=== PATIENT | female | born 1975 | race Caucasian/White ===

== ENCOUNTER → 2017-10-19 | Outpatient (CLI) | payer MEDICAID ==
[~2017-10-19] MED LIST: ACET325T49 PO; CIPR500T78 PO; CLON0.5T3 PO; CLOT15CR6 TOP; DEPOPROVERA; HYDR-623 PO; KLONOPIN; LACO150T2 PO; LAMO200T14 PO; LORA1TAB PO; MPR22T TP; MTR500T PO; MULT-30 PO; OMEP-10 PO; PRILOSEC; TRM50T PO; [UNRECOGNIZED DRUG - OTHER]
--- NOTE | 2017-10-20 10:02 | Diagnostic Imaging Report ---
EXAMINATION: Bilateral screening mammogram 2D views with tomosynthesis. The current study was also evaluated with a Computer Aided Detection (CAD) system. INDICATION: Screening. PERSONAL HISTORY: No current complaints stated on the questionnaire. COMPARISON: 09/17/2016. FINDINGS: The breasts are composed of heterogeneously dense parenchyma which may decrease mammographic sensitivity. Allowing for technique and positional differences, no suspicious change is seen. IMPRESSION: No significant change. ACR BI-RADS Category 2: Benign findings. Result letter will be mailed to the patient. Note: At least 10% of breast cancer is not imaged by mammography. Dictated by: Dictated on workstation # [id number]
== END ==
LOC: RAD 09:09
PROVIDERS: ATTEND Family Medicine
DX: Z12.31 Encounter for screening mammogram for malignant neoplasm of breast (principal)
CPT/HCPCS: 77067

== ENCOUNTER → 2018-04-08 | Outpatient (CLI) | payer MEDICAID ==
--- NOTE | 2018-04-08 17:48 | Diagnostic Imaging Report ---
INDICATION: Right femur pain. AP and lateral views of the right femur are obtained. Intramedullary karen is in place in the femoral shaft. Old fracture deformity of the distal femoral shaft is noted. No acute fracture is seen. There is no lytic or blastic lesion. IMPRESSION: Anatomic alignment of right femur with old fracture deformity in distal femoral shaft. Intramedullary karen is in place. There is no acute-appearing abnormality. Dictated by: Dictated on workstation # [id number]
== END ==
LOC: RAD 12:55
PROVIDERS: ATTEND Family Medicine
DX: M79.651 Pain in right thigh (principal); Z96.7 Presence of other bone and tendon implants
CPT/HCPCS: 73552

== ENCOUNTER → 2018-12-14 | Outpatient (CLI) | payer MEDICAID ==
--- NOTE | 2018-12-14 21:18 | Diagnostic Imaging Report ---
INDICATION: Routine screening. Comparison is made with prior mammogram from 10/19/2017 and 09/17/2016. 2-D and 3-D bilateral screening mammography was performed with CAD. The current study was also evaluated with a Computer Aided Detection (CAD) system. FINDINGS: Both breasts are heterogeneously dense, limiting the sensitivity of mammography. Positioning is compromised. There is a new density in the medial aspect of the right breast on the CC view at mid depth. This appears to be inferiorly located on the MLO view. Additional views are recommended. Asymmetric density in the superior right breast appears stable. Left breast is unremarkable. The axillae are unremarkable. IMPRESSION: Right breast density, as described. Additional views are recommended for further evaluation. ACR BI-RADS Category 0: Incomplete. (Needs additional imaging evaluation). Result letter will be mailed to the patient. Note: At least 10% of breast cancer is not imaged by mammography. Dictated by: Dictated on workstation # [id number]
== END ==
LOC: RAD 11:09
PROVIDERS: ATTEND Family Medicine
DX: Z12.31 Encounter for screening mammogram for malignant neoplasm of breast (principal)
CPT/HCPCS: 77067

== ENCOUNTER → 2018-12-30 | Outpatient (CLI) | payer MEDICAID ==
--- NOTE | 2018-12-30 15:45 | Diagnostic Imaging Report ---
INDICATION: Right breast density. Patient presents for additional views. COMPARISON: Screening study from 12/14/2018. FINDINGS: Unilateral right 2D and 3D diagnostic mammography was performed including spot compression CC and ML views. FINDINGS: There appears to be some dispersion of the density on the spot compression CC view; however, on the ML view, the density does persist. No suspicious calcifications are seen. IMPRESSION: There is some persistent density in the lower inner right breast with additional views. Further evaluation with ultrasound is recommended and will be performed today. ACR BI-RADS Category 0: Incomplete. (Needs additional imaging evaluation). Result letter will be mailed to the patient. Note: At least 10% of breast cancer is not imaged by mammography. Dictated by: Dictated on workstation # [id number]
--- NOTE | 2018-12-30 16:02 | Diagnostic Imaging Report ---
INDICATION: Right breast density. Patient presents for further evaluation. COMPARISON: Correlation is made with the diagnostic study from earlier this same day. FINDINGS: Sonographic interrogation of the lower and inner right breast was performed. At the 5 to 6 o'clock location 4 cm from the nipple, there is an irregular hypoechoic mass measuring approximately 8 mm x 9 mm x 9 mm. This does contain internal blood flow and is concerning for breast neoplasm. Adjacent to this, there is a smaller hypoechoic nodule of a few millimeters in size which may represent a satellite nodule. No other abnormalities are seen. IMPRESSION: Irregular hypoechoic solid-appearing mass at the 5 to 6 o'clock location of the right breast 4 cm from the nipple. This does correlate in size and location to the density noted mammographically and is concerning for a small breast neoplasm. Tissue sampling is recommended. This would likely be amenable to an ultrasound-guided core biopsy. ACR BI-RADS Category 4: Suspicious abnormality. Result letter will be mailed to the patient. Note: At least 10% of breast cancer is not imaged by mammography. Dictated on workstation # [id number]
== END ==
LOC: RAD 13:11
PROVIDERS: ATTEND Family Medicine
DX: N63.14 Unspecified lump in the right breast, lower inner quadrant (principal)

== ENCOUNTER → 2019-02-08 | Outpatient (CLI) | payer MEDICAID ==
[~2019-02-08] VITALS: Ht 142.2 cm; Wt 90.7 kg
[~2019-02-08] MED LIST changes: +LIDOCAINE 1% INJ 20 ML 20 ML VIAL INJ ONE
--- NOTE | 2019-02-08 09:49 | NUR ---
Niyah Tanner is mentally handicapped. In preparation for her right breast biopsy procedure, this RN called Romy Valadez, Niyah's legal guardian, to obtain telephone consent. This telephone consent was obtained with a second witness, Marylou Singh RN.
--- NOTE | 2019-02-08 13:16 | Diagnostic Imaging Report ---
INDICATION: Right breast mass. Patient presents for ultrasound guided biopsy. TECHNIQUE: The patient was brought to the procedure room and placed on the bed in the supine position. Ultrasound imaging of the right breast was performed to evaluate for an appropriate entry site. The right breast was then prepped and draped in the usual sterile fashion. A small amount of 1% lidocaine was utilized for local anesthesia. A 14-gauge Achieve needle was advanced into the right breast. A total of 4 core biopsies through the hypoechoic mass at the 6 o'clock location of the right breast was performed. A marker clip was then deployed. Hemostasis was obtained using manual compression. The patient tolerated the procedure well and left the Department in stable condition. IMPRESSION: Ultrasound-guided right breast biopsy of the lesion at the 6 o'clock location, as described. The pathologic results are currently pending. Dictated by: Dictated on workstation # [id number]
--- NOTE | 2019-02-08 13:29 | Diagnostic Imaging Report ---
INDICATION: Left breast biopsy. TECHNIQUE: 2D CC and ML views of the left breast were obtained post biopsy. FINDINGS: Images demonstrate a marker clip within the area of density in the inferior and slightly medial left breast. IMPRESSION: Clip in appropriate location, status post biopsy. Dictated by: Dictated on workstation # [id number]
== END ==
LOC: RAD 08:35
PROVIDERS: ATTEND Family Medicine
DX: N60.91 Unspecified benign mammary dysplasia of right breast (principal); N64.89 Other specified disorders of breast; N63.10 Unspecified lump in the right breast, unspecified quadrant
CPT/HCPCS: 19083; 88305

== ENCOUNTER → 2020-01-02 | Outpatient (CLI) | payer MEDICAID ==
[~2020-01-02] MED LIST changes: -LIDOCAINE 1% INJ 20 ML 20 ML VIAL INJ ONE
[2020-01-02 14:24] LABS: BASOPHILS % (AUTO) 1 % (0-10); EOSINOPHILS # (AUTO) 0.2 10^3/uL (0.0-0.3); EOSINOPHILS % (AUTO) 2 % (0-10); HEMATOCRIT 47 % (35-52); HEMOGLOBIN 15.8 G/DL (11.5-16.0); LYMPHOCYTES # (AUTO) 1.6 X 10^3 (1.0-4.0); LYMPHOCYTES % (AUTO) 22 % (12-44); MEAN CORPUSCULAR HEMOGLOBIN 32 PG (25-34); MEAN CORPUSCULAR HGB CONC 33 G/DL (32-36); MEAN CORPUSCULAR VOLUME 95 FL (80-99); MEAN PLATELET VOLUME 9.3 FL (7.4-10.4); MONOCYTES % (AUTO) 13 % (0-12); NEUTROPHILS # (AUTO) 4.7 X 10^3 (1.8-7.8); NEUTROPHILS % (AUTO) 62 % (42-75); PLATELET COUNT 290 10^3/uL (130-400); RED CELL DISTRIBUTION WIDTH 13.1 % (10.0-14.5); WHITE BLOOD COUNT 7.5 10^3/uL (4.3-11.0)
--- NOTE | 2020-01-02 14:55 | Diagnostic Imaging Report ---
INDICATION: Cough, congestion, and wheezing. COMPARISON: 04/17/2015. FINDINGS: Body habitus limits sensitivity. No focal consolidation. The heart size is at the upper limits but stable. IMPRESSION: No acute finding apparent. Study limited by poor inspiratory volume, body habitus, and AP technique. Dictated by: Dictated on workstation # [id number]
== END ==
LOC: RAD 14:09
PROVIDERS: ATTEND Family Medicine
DX: R05 Cough (principal); R09.81 Nasal congestion; R06.2 Wheezing
CPT/HCPCS: 36415; 71045; 85025

== ENCOUNTER 2020-03-19 11:58 | Emergency (ER) | payer MEDICAID ==
[~2020-03-19] VITALS: Ht 147 cm; Wt 77.0 kg
[2020-03-19] MEDS ORDERED: HYDROcodone/APAP 5 MG/325 MG (LORTAB) TAB PO ONE (12:15)
[2020-03-19 12:20] LABS: BILIRUBIN,URINE NEGATIVE (NEGATIVE); CLARITY,URINE SL CLOUDY; COLOR,URINE YELLOW; GLUCOSE, URINE (UA) NEGATIVE (NEGATIVE); KETONES,URINE NEGATIVE (NEGATIVE); LEUKOCYTE ESTERASE ,URINE NEGATIVE (NEGATIVE); NITRITE,URINE NEGATIVE (NEGATIVE); PROTEIN,URINE NEGATIVE (NEGATIVE)
--- NOTE | 2020-03-19 12:20 | ED Abdominal Pain ---
General Chief Complaint: Abdominal/GI Problems Stated Complaint: ABD PAIN Source of Information: Patient Exam Limitations: No Limitations History of Present Illness Date Seen by Provider: March 19, 2020 Time Seen by Provider: 12:14 Initial Comments To ER with reports of right-sided abdominal pain. 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 She is wheelchair bound, she is transferred via [employer] lift. She complains of pain to the abdomen. When asked to point where she points to the right suprapubic and states behind her leg. Behind the right leg upper area there is an abrasion likely from the [employer] lift sheet. Abdomen is nontender to palpation. Timing/Duration: Other Severity/Quality: Moderate Location: RLQ Activities at Onset: None Allergies and Home Medications Allergies Coded Allergies: No Known Drug Allergies (Unverified , 02/10/13) Home Medications Acetaminophen 325 Mg Tab, 2 TAB PO Q6HR PRN, (Reported) TYLENOL 325MG TABLET PO EVERY 6HRS PRN PAIN/TEMP Betamethasone/Clotrimazole 15 Gm Cream.gm., 0 TOP TID, (Reported) APPLY TO AFFECTED AREA(S) Ciprofloxacin HCl 500 Mg Tablet, 500 MG PO BID Prescribed by: JUNIOR GORE on 05/25/14 1229 Clonazepam 0.5 Mg Tablet, 1 EACH PO DAILY, (Reported) Clonazepam 0.5 Mg Tablet, 2 TAB PO HS, (Reported) Hydrocodone Bit/Acetaminophen 1 Tab Tablet, 1-2 EACH PO Q6H, (Reported) Lacosamide 150 Mg Tablet, 200 MG PO BID, (Reported) VIMPAT 150MG TABLET TAKE ONE TAB PO TWICE DAILY Lorazepam 1 Mg Tab, 1 MG PO PRN PRN, (Reported) ATIVAN 1MG TABLET BY MOUTH NEEDED FOR ABORTING SEIZURE AND THEN AFTER SEIZURE IS OVER Metronidazole 500 Mg Tab, 500 MG PO TID Prescribed by: JUNIOR GORE on 05/25/14 1229 Mupirocin 22 Gm Tube, 0 TP BID, (Reported) APPLY TO SPARINGLY TO AFFECTED AREA(S) Omeprazole 20 Mg Capsule.dr, 20 MG PO DAILY, (Reported) PRILOSEC 20MG CAPSULE PO ONCE DAILY IN THE MORNING BEFORE BREAKFAST Tramadol Hcl 50 Mg Tab, 50 MG PO Q6H PRN for PAIN, (Reported) Patient Home Medication List Home Medication List Reviewed: Yes Review of Systems Review of Systems Constitutional: see HPI EENTM: No Symptoms Reported Respiratory: No Symptoms Reported Cardiovascular: See HPI Gastrointestinal: See HPI, Abdominal Pain Genitourinary: No Symptoms Reported Musculoskeletal: no symptoms reported Skin: no symptoms reported Psychiatric/Neurological: No Symptoms Reported Endocrine: No Symptoms Reported Hematologic/Lymphatic: No Symptoms Reported Past Iagjoyr-Lqqwmh-Fxrobx Hx Immunizations Up To Date Tetanus Booster (TDap): More than 5yrs PED Vaccines UTD: No Past Medical History Reproductive Disorders: No Bladder Infection Diverticulosis Fractures Tonsilitis Anxiety Recent Skin Changes Adverse Reaction/Blood Tranf: No Family Medical History Alcoholism 19 MOTHER (mother , addicted to illegal drugs) No Pertinent Family Hx Physical Exam Vital Signs Vital Signs - First Documented 03/19/20 12:00 Temp 36.8 Pulse 88 Resp 18 B/P (MAP) 130/98 (109) Pulse Ox 99 Capillary Refill : Height/Weight/BMI Height: 4'8.00" Weight: 200lbs. 0.0oz. 90.504348xi; 44.8 BMI Method:Estimated General Appearance: WD/WN, no apparent distress, other (alert, smiling. Does answer questions with 1 or 2 word answers.) Neck: non-tender, full range of motion Respiratory: no respiratory distress, no accessory muscle use Gastrointestinal: normal bowel sounds, non tender, soft Extremities: normal range of motion, non-tender, other (small abrasion posterior right thigh where the drawsheet is) Neurologic/Psychiatric: alert Skin: normal color, warm/dry Progress/Results/Core Measures Results/Orders Lab Results Laboratory Tests Test 03/19/20 12:05 03/19/20 12:41 Range/Units Urine Color YELLOW Urine Clarity SL CLOUDY Urine pH 7.0 5-9 Urine Specific [place] 1.020 1.016-1.022 Urine Protein NEGATIVE NEGATIVE Urine Glucose (UA) NEGATIVE NEGATIVE Urine Ketones NEGATIVE NEGATIVE Urine Nitrite NEGATIVE NEGATIVE Urine Bilirubin NEGATIVE NEGATIVE Urine Urobilinogen 4.0 < = 1.0 MG/DL Urine Leukocyte Esterase NEGATIVE NEGATIVE Urine RBC (Auto) TRACE-I NEGATIVE Urine RBC 2-5 H /HPF Urine WBC NONE /HPF Urine Squamous Epithelial Cells 2-5 /HPF Urine Crystals NONE /LPF Urine Bacteria NEGATIVE /HPF Urine Casts NONE /LPF Urine Mucus MODERATE H /LPF Urine Culture Indicated NO White Blood Count 8.5 4.3-11.0 10^3/uL Red Blood Count 4.89 4.35-5.85 10^6/uL Hemoglobin 15.5 11.5-16.0 G/DL Hematocrit 47 35-52 % Mean Corpuscular Volume 95 80-99 FL Mean Corpuscular Hemoglobin 32 25-34 PG Mean Corpuscular Hemoglobin Concent 33 32-36 G/DL Red Cell Distribution Width 13.7 10.0-14.5 % Platelet Count 241 130-400 10^3/uL Mean Platelet Volume 9.1 7.4-10.4 FL Neutrophils (%) (Auto) 59 42-75 % Lymphocytes (%) (Auto) 27 12-44 % Monocytes (%) (Auto) 13 H 0-12 % Eosinophils (%) (Auto) 1 0-10 % Basophils (%) (Auto) 0 0-10 % Neutrophils # (Auto) 5.0 1.8-7.8 X 10^3 Lymphocytes # (Auto) 2.3 1.0-4.0 X 10^3 Monocytes # (Auto) 1.1 H 0.0-1.0 X 10^3 Eosinophils # (Auto) 0.1 0.0-0.3 10^3/uL Basophils # (Auto) 0.0 0.0-0.1 10^3/uL Sodium Level 140 135-145 MMOL/L Potassium Level 3.6 3.6-5.0 MMOL/L Chloride Level 106 98-107 MMOL/L Carbon Dioxide Level 23 21-32 MMOL/L Anion Gap 11 5-14 MMOL/L Blood Urea Nitrogen 7 7-18 MG/DL Creatinine 0.63 0.60-1.30 MG/DL Estimat Glomerular Filtration Rate > 60 BUN/Creatinine Ratio 11 Glucose Level 102 70-105 MG/DL Calcium Level 8.9 8.5-10.1 MG/DL Corrected Calcium 9.3 8.5-10.1 MG/DL Total Bilirubin 0.3 0.1-1.0 MG/DL Aspartate Amino Transf (AST/SGOT) 63 H 5-34 U/L Alanine Aminotransferase (ALT/SGPT) 47 0-55 U/L Alkaline Phosphatase 109 40-136 U/L Total Protein 7.8 6.4-8.2 GM/DL Albumin 3.5 3.2-4.5 GM/DL Lipase 29 8-78 U/L Serum Test, Qualitative NEGATIVE NEGATIVE My Orders Orders - CULLEN LEE APRN Cbc With Automated Diff (03/19/20 12:10) Comprehensive Metabolic Panel (03/19/20 12:10) Lipase (03/19/20 12:10) Ua Culture If Indicated (03/19/20 12:10) Straight Cath (Urinary) (03/19/20 12:10) Ct Abdomen/Pelvis Wo (03/19/20 12:10) Hcg,Qualitative Serum (03/19/20 12:10) Hydrocodone/Apap 5/325 Tablet (Lortab 5 (03/19/20 12:15) Medications Given in ED Current Medications Medications Dose Ordered Sig/Horace Route Start Time Stop Time Status Last Admin Dose Admin Acetaminophen/ Hydrocodone Bitart 1 tab ONCE ONCE PO 03/19/20 12:15 03/19/20 12:16 DC 03/19/20 12:40 1 TAB Vital Signs/I&O 03/19/20 12:00 Temp 36.8 Pulse 88 Resp 18 B/P (MAP) 130/98 (109) Pulse Ox 99 Diagnostic Imaging Diagonstic Imaging: CT Comments NAME: RADHAMES DIAZ MED REC#: [id number] PT STATUS: REG ER : 1975 PHYSICIAN: CULLEN LEE APRN ADMIT DATE: 03/19/20/ER Draft Date of Exam:03/19/20 CT ABDOMEN/PELVIS WO PROCEDURE: CT abdomen and pelvis without contrast. TECHNIQUE: Multiple contiguous axial images were obtained through the abdomen and pelvis without the use of intravenous contrast. Auto Exposure Controls were utilized during the CT exam to meet ALARA standards for radiation dose reduction. INDICATION: Right-sided pain. COMPARISON: 05/24/2014. FINDINGS: The lung bases are clear. The liver demonstrates diffuse low density, consistent with hepatic steatosis. No discrete mass is detected. The gallbladder is unremarkable. There is no biliary ductal dilatation. The pancreas and spleen are unremarkable. No adrenal mass is detected. The kidneys are unremarkable. There are no calculi. There is no hydronephrosis. The aorta is nonaneurysmal. The small and large bowel loops are normal in caliber. No obstruction is seen. No inflammatory changes are identified. There is no free fluid or fluid collection identified. The uterus and bladder are unremarkable. The bony structures are nonacute. IMPRESSION: 1. Hepatic steatosis. 2. No evidence of urinary tract calculi or obstruction. No acute feature is detected. Dictated on workstation # [id number] Dict: 03/19/20 1257 Trans: 03/19/20 1306 [id number] Interpreted by: YASMIN ROBBINS MD Electronically signed by: Departure Impression Primary Impression: Abrasion of right thigh Additional Impressions: Right lower quadrant abdominal pain Constipation Disposition: HOME, SELF-CARE Condition: Stable Departure-Patient Inst. Decision time for Depature: 13:25 Referrals: DIANA CHEUNG DO (PCP/Family) Primary Care Physician Patient Instructions: Constipation in Adults Add. Discharge Instructions: 1. Return to ER for any concerns 2. Follow-up with Dr. Dr. Cheung later this week 3. All discharge instructions reviewed with patient and/or family. Voiced understanding. Scripts Na Phos,M-B/Na Phos,Di-Ba (Enema Ready To Use) 133 Ml Enema 133 ML RC BID, #2 EA Prov: CULLEN LEE DATA CODER OPERATOR 03/19/20 CULLEN LEE DATA CODER OPERATOR March 19, 2020 12:20
[2020-03-19 12:28] LABS: BACTERIA,URINE NEGATIVE /HPF
--- NOTE | 2020-03-19 12:32 | NUR ---
SEE COPY FOR CURRENT MED
[2020-03-19 12:55] LABS: BASOPHILS % (AUTO) 0 % (0-10); EOSINOPHILS # (AUTO) 0.1 10^3/uL (0.0-0.3); EOSINOPHILS % (AUTO) 1 % (0-10); HEMATOCRIT 47 % (35-52); HEMOGLOBIN 15.5 G/DL (11.5-16.0); LYMPHOCYTES # (AUTO) 2.3 X 10^3 (1.0-4.0); LYMPHOCYTES % (AUTO) 27 % (12-44); MEAN CORPUSCULAR HEMOGLOBIN 32 PG (25-34); MEAN CORPUSCULAR HGB CONC 33 G/DL (32-36); MEAN CORPUSCULAR VOLUME 95 FL (80-99); MEAN PLATELET VOLUME 9.1 FL (7.4-10.4); MONOCYTES # (AUTO) 1.1 X 10^3 (0.0-1.0); MONOCYTES % (AUTO) 13 % (0-12); NEUTROPHILS % (AUTO) 59 % (42-75); PLATELET COUNT 241 10^3/uL (130-400); RED CELL DISTRIBUTION WIDTH 13.7 % (10.0-14.5); WHITE BLOOD COUNT 8.5 10^3/uL (4.3-11.0)
[2020-03-19 13:03] LABS: ALBUMIN 3.5 GM/DL (3.2-4.5); CHLORIDE 106 MMOL/L (98-107); POTASSIUM 3.6 MMOL/L (3.6-5.0); SODIUM 140 MMOL/L (135-145)
[2020-03-19 13:04] LABS: CALCIUM 8.9 MG/DL (8.5-10.1)
[2020-03-19 13:06] LABS: GLUCOSE 102 MG/DL (70-105); TOTAL PROTEIN 7.8 GM/DL (6.4-8.2)
[2020-03-19 13:07] LABS: CARBON DIOXIDE 23 MMOL/L (21-32)
--- NOTE | 2020-03-19 13:07 | Diagnostic Imaging Report ---
PROCEDURE: CT abdomen and pelvis without contrast. TECHNIQUE: Multiple contiguous axial images were obtained through the abdomen and pelvis without the use of intravenous contrast. Auto Exposure Controls were utilized during the CT exam to meet ALARA standards for radiation dose reduction. INDICATION: Right-sided pain. COMPARISON: 05/24/2014. FINDINGS: The lung bases are clear. The liver demonstrates diffuse low density, consistent with hepatic steatosis. No discrete mass is detected. The gallbladder is unremarkable. There is no biliary ductal dilatation. The pancreas and spleen are unremarkable. No adrenal mass is detected. The kidneys are unremarkable. There are no calculi. There is no hydronephrosis. The aorta is nonaneurysmal. The small and large bowel loops are normal in caliber. No obstruction is seen. No inflammatory changes are identified. There is no free fluid or fluid collection identified. The uterus and bladder are unremarkable. The bony structures are nonacute. IMPRESSION: 1. Hepatic steatosis. 2. No evidence of urinary tract calculi or obstruction. No acute feature is detected. Dictated by: Dictated on workstation # [id number]
[2020-03-19 13:08] LABS: BILIRUBIN,TOTAL 0.3 MG/DL (0.1-1.0)
[2020-03-19 13:09] LABS: ALKALINE PHOSPHATASE 109 U/L (40-136); CREATININE SERUM 0.63 MG/DL (0.60-1.30); GFR ESTIMATED > 60
[2020-03-19 13:10] LABS: BUN/CREATININE RATIO 11
[2020-03-19 13:12] LABS: ALANINE AMINOTRANSFERASE 47 U/L (0-55)
[2020-03-19 13:13] LABS: LIPASE 29 U/L (8-78)
[2020-03-19] MEDS ORDERED: NA P133E36 RC (13:32)
[2020-03-19 13:45] VITALS: BP 124/84
--- NOTE | 2020-03-19 13:48 | NUR ---
REPORT TO RN AT [facility] ORDERS FOR PT
== END 2020-03-19 14:37 | disposition home or self-care (01) ==
LOC: EDUNIT# 11:58 → ER 11:59
DX: S70.311A Abrasion, right thigh, initial encounter (principal); K59.00 Constipation, unspecified; F41.9 Anxiety disorder, unspecified; X58.XXXA Exposure to other specified factors, initial encounter
CPT/HCPCS: 36415; 74176; 80053; 81000; 83690; 84703; 85025

== ENCOUNTER 2021-06-09 20:45 | Emergency (ER) | payer MEDICAID ==
[~2021-06-09] VITALS: Ht 152 cm; Wt 72.0 kg
[~2021-06-09 20:45] MED LIST changes: +NA P133E36 RC
--- NOTE | 2021-06-09 21:34 | Diagnostic Imaging Report ---
PROCEDURE: CT head wo r/o stroke. TECHNIQUE: Multiple contiguous axial images were obtained through the brain without the use of intravenous contrast. Auto Exposure Controls were utilized during the CT exam to meet ALARA standards for radiation dose reduction. INDICATION: 45-year-old female, change in mental status. CORRELATION STUDY: 05/24/2014 FINDINGS: Again demonstration of what appears to be massive enlargement of the left lateral ventricle with only a small rim-like area of the brain parenchyma remaining. Overall appearance is generally stable. The right cerebral hemisphere appears unchanged. No definitive new area of decreased attenuation to suggest edema. Posterior fossa also appears generally stable. Rather pronounced asymmetric hypertrophic changes about the left cerebral hemisphere. 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 IMPRESSION: 1. Overall generally stable appearance about the CT head examination. While there is marked abnormal appearance about the left cerebral hemisphere, no definitive new intracranial abnormality or changes have developed. Dictated by: Dictated on workstation # [id number]
[2021-06-09 22:08] LABS: BASOPHILS % (AUTO) 1 % (0-10); EOSINOPHILS % (AUTO) 1 % (0-10); HEMATOCRIT 47 % (35-52); HEMOGLOBIN 16.2 g/dL (11.5-16.0); LYMPHOCYTES # (AUTO) 2.3 10^3/uL (1.0-4.0); LYMPHOCYTES % (AUTO) 45 % (12-44); MEAN CORPUSCULAR HEMOGLOBIN 34 pg (25-34); MEAN CORPUSCULAR HGB CONC 34 g/dL (32-36); MEAN CORPUSCULAR VOLUME 99 fL (80-99); MEAN PLATELET VOLUME 9.1 fL (9.0-12.2); MONOCYTES # (AUTO) 0.5 10^3/uL (0.0-1.0); MONOCYTES % (AUTO) 10 % (0-12); NEUTROPHILS # (AUTO) 2.2 10^3/uL (1.8-7.8); NEUTROPHILS % (AUTO) 43 % (42-75); PLATELET COUNT 164 10^3/uL (130-400); WHITE BLOOD COUNT 5.2 10^3/uL (4.3-11.0)
[2021-06-09 22:22] LABS: ALBUMIN 3.7 GM/DL (3.2-4.5); POTASSIUM 3.3 MMOL/L (3.6-5.0)
[2021-06-09 22:23] LABS: CALCIUM 9.4 MG/DL (8.5-10.1)
[2021-06-09 22:25] LABS: TOTAL PROTEIN 9.4 GM/DL (6.4-8.2)
[2021-06-09 22:28] LABS: CREATININE SERUM 0.79 MG/DL (0.60-1.30)
[2021-06-09 22:34] LABS: CLARITY,URINE CLEAR; COLOR,URINE ORANGE; GLUCOSE, URINE (UA) NEGATIVE (NEGATIVE); KETONES,URINE 1+ (NEGATIVE); LEUKOCYTE ESTERASE ,URINE NEGATIVE (NEGATIVE); NITRITE,URINE NEGATIVE (NEGATIVE); PROTEIN,URINE 1+ (NEGATIVE)
[2021-06-09 22:41] LABS: BILIRUBIN,URINE 1+ (NEGATIVE)
[2021-06-09 22:42] LABS: BACTERIA,URINE NEGATIVE /HPF; RBC,URINE 0-2 /HPF; WBC,URINE 0-2 /HPF
[2021-06-09 22:43] LABS: SQUAMOUS EPITHELIAL CELL,UR 0-2 /HPF
[2021-06-09] MEDS ORDERED: LACTATED RINGERS 1,000 ML IV ONE (23:15)
--- NOTE | 2021-06-10 00:06 | ED General ---
General Chief Complaint: Neurological Problems Stated Complaint: NOT EATING OR DRINKING Nursing Triage Note: PT BROUGHT VIA [facility], BLS. PT WAS BROUGHT FROM [facility] DUE TO CHANGE IN MENTAL STATUS. STAFF ALSO REPORTS PT HAS NOT BEEN EATING OR DRINKING RIGHT FOR THE LAST THREE DAYS. PT HAS BEEN NOTED TO BE LEANING TO HER LEFT SIDE FOR THE LAST FEW DAYS. RT SIDE IS PARA. SINCE STROKE. PT MENTALLY DISABLED. Source of Information: Patient, Caregiver, EMS Exam Limitations: No Limitations Allergies and Home Medications Allergies Coded Allergies: No Known Drug Allergies (Unverified , 02/10/13) Home Medications Acetaminophen 325 Mg Tab, 2 TAB PO Q6HR PRN, (Reported) TYLENOL 325MG TABLET PO EVERY 6HRS PRN PAIN/TEMP Betamethasone/Clotrimazole 15 Gm Cream.gm., 0 TOP TID, (Reported) APPLY TO AFFECTED AREA(S) Ciprofloxacin HCl 500 Mg Tablet, 500 MG PO BID Prescribed by: JUNIOR GORE on 05/25/14 1229 Clonazepam 0.5 Mg Tablet, 1 EACH PO DAILY, (Reported) Clonazepam 0.5 Mg Tablet, 2 TAB PO HS, (Reported) Hydrocodone Bit/Acetaminophen 1 Tab Tablet, 1-2 EACH PO Q6H, (Reported) Lacosamide 150 Mg Tablet, 200 MG PO BID, (Reported) VIMPAT 150MG TABLET TAKE ONE TAB PO TWICE DAILY Lorazepam 1 Mg Tab, 1 MG PO PRN PRN, (Reported) ATIVAN 1MG TABLET BY MOUTH NEEDED FOR ABORTING SEIZURE AND THEN AFTER SEIZURE IS OVER Metronidazole 500 Mg Tab, 500 MG PO TID Prescribed by: JUNIOR GORE on 05/25/14 1229 Mupirocin 22 Gm Tube, 0 TP BID, (Reported) APPLY TO SPARINGLY TO AFFECTED AREA(S) Na Phos,M-B/Na Phos,Di-Ba 133 Ml Enema, 133 ML RC BID Prescribed by: CULLEN LEE on 03/19/20 1332 Omeprazole 20 Mg Capsule.dr, 20 MG PO DAILY, (Reported) PRILOSEC 20MG CAPSULE PO ONCE DAILY IN THE MORNING BEFORE BREAKFAST Tramadol Hcl 50 Mg Tab, 50 MG PO Q6H PRN for PAIN, (Reported) Past Hcufqpv-Tvyqan-Gkwxmj Hx Immunizations Up To Date Tetanus Booster (TDap): More than 5yrs PED Vaccines UTD: No Past Medical History Surgeries: Yes Respiratory: No Cardiac: No Neurological: Yes Seizure Disorder Reproductive Disorders: No Bladder Infection Gastrointestinal: Yes Diverticulosis Musculoskeletal: Yes Fractures Endocrine: No Tonsilitis Cancer: No Psychosocial: Yes Anxiety 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 0.0oz. [id number]; 31.00 BMI Method:Estimated Progress/Results/Core Measures Suspected Sepsis SIRS Temperature: Pulse: 96 Respiratory Rate: 16 Laboratory Tests 06/09/21 22:00: White Blood Count 5.2 Blood Pressure 128 /81 Mean: 113 Laboratory Tests 06/09/21 22:00: Creatinine 0.79, Platelet Count 164, Total Bilirubin 1.0 Results/Orders Lab Results Laboratory Tests Test 06/09/21 20:59 06/09/21 22:00 06/09/21 22:26 Range/Units Glucometer 111 H 70-110 MG/DL White Blood Count 5.2 4.3-11.0 10^3/uL Red Blood Count 4.79 3.80-5.11 10^6/uL Hemoglobin 16.2 H 11.5-16.0 g/dL Hematocrit 47 35-52 % Mean Corpuscular Volume 99 80-99 fL Mean Corpuscular Hemoglobin 34 25-34 pg Mean Corpuscular Hemoglobin Concent 34 32-36 g/dL Red Cell Distribution Width 12.9 10.0-14.5 % Platelet Count 164 130-400 10^3/uL Mean Platelet Volume 9.1 9.0-12.2 fL Immature Granulocyte % (Auto) 0 % Neutrophils (%) (Auto) 43 42-75 % Lymphocytes (%) (Auto) 45 H 12-44 % Monocytes (%) (Auto) 10 0-12 % Eosinophils (%) (Auto) 1 0-10 % Basophils (%) (Auto) 1 0-10 % Neutrophils # (Auto) 2.2 1.8-7.8 10^3/uL Lymphocytes # (Auto) 2.3 1.0-4.0 10^3/uL Monocytes # (Auto) 0.5 0.0-1.0 10^3/uL Eosinophils # (Auto) 0.0 0.0-0.3 10^3/uL Basophils # (Auto) 0.0 0.0-0.1 10^3/uL Immature Granulocyte # (Auto) 0.0 0.0-0.1 10^3/uL Sodium Level 142 135-145 MMOL/L Potassium Level 3.3 L 3.6-5.0 MMOL/L Chloride Level 105 98-107 MMOL/L Carbon Dioxide Level 24 21-32 MMOL/L Anion Gap 13 5-14 MMOL/L Blood Urea Nitrogen 9 7-18 MG/DL Creatinine 0.79 0.60-1.30 MG/DL Estimat Glomerular Filtration Rate 78 BUN/Creatinine Ratio 11 Glucose Level 108 H 70-105 MG/DL Calcium Level 9.4 8.5-10.1 MG/DL Corrected Calcium 9.6 8.5-10.1 MG/DL Total Bilirubin 1.0 0.1-1.0 MG/DL Aspartate Amino Transf (AST/SGOT) 74 H 5-34 U/L Alanine Aminotransferase (ALT/SGPT) 42 0-55 U/L Alkaline Phosphatase 117 40-136 U/L C-Reactive Protein High Sensitivity 0.57 H 0.00-0.50 MG/DL Total Protein 9.4 H 6.4-8.2 GM/DL Albumin 3.7 3.2-4.5 GM/DL Urine Color ORANGE Urine Clarity CLEAR Urine pH 6.0 5-9 Urine Specific Brantley 1.025 H 1.016-1.022 Urine Protein 1+ H NEGATIVE Urine Glucose (UA) NEGATIVE NEGATIVE Urine Ketones 1+ H NEGATIVE Urine Nitrite NEGATIVE NEGATIVE Urine Bilirubin 1+ H NEGATIVE Urine Urobilinogen >=8.0 < = 1.0 MG/DL Urine Leukocyte Esterase NEGATIVE NEGATIVE Urine RBC (Auto) NEGATIVE NEGATIVE Urine RBC 0-2 /HPF Urine WBC 0-2 /HPF Urine Squamous Epithelial Cells 0-2 /HPF Urine Renal Epithelial Cells NONE /HPF Urine Crystals NONE /LPF Urine Bacteria NEGATIVE /HPF Urine Casts NONE /LPF Urine Mucus LARGE H /LPF Urine Culture Indicated NO My Orders Orders - KARLI GIFFORD MD Cbc With Automated Diff (06/09/21 20:52) Comprehensive Metabolic Panel (06/09/21 20:52) Hs C Reactive Protein (06/09/21 20:52) Ua Culture If Indicated (06/09/21 20:52) Ed Iv/Invasive Line Start (06/09/21 20:52) Ct Head Wo-R/O Stroke (06/09/21 20:52) Lactated Ringers (Lr 1000 Ml Iv Solution (06/09/21 23:15) Medications Given in ED Current Medications Medications Dose Ordered Sig/Horace Route Start Time Stop Time Status Last Admin Dose Admin Lactated Ringer's 1,000 ml @ 0 mls/hr Q0M ONCE IV 06/09/21 23:15 06/09/21 23:16 DC 06/09/21 23:14 1,000 MLS/HR Vital Signs/I&O 06/09/21 06/09/21 20:48 21:00 Temp 36.9 36.9 Pulse 96 95 Resp 16 18 B/P (MAP) 128/81 (97) 133/103 (113) Pulse Ox 98 O2 Delivery Room Air Room Air Capillary Refill : Less Than 3 Seconds Blood Pressure Mean: 113 Point of Care Testing Finger Stick Blood Glucose: 111 Blood Glucose Action Taken: PROVIDER NOTIFIED. Departure Impression Primary Impression: AMS (altered mental status) Qualified Codes: R41.82 - Altered mental status, unspecified Additional Impression: Hypokalemia Disposition: 01 HOME, SELF-CARE Condition: Improved Departure-Patient Inst. Referrals: DIANA CHEUNG DO (PCP/Family) Primary Care Physician Patient Instructions: Hypokalemia Add. Discharge Instructions: Keep the follow-up appointment with her primary care provider later today. Encourage plenty of clear liquids. Offer some food and drink high in potassium such as orange juice, bananas, etc. as her potassium was a little low in the ER. Call with questions or concerns. Return to care if worsening symptoms. All discharge instructions reviewed with patient and/or family. Voiced understanding. Copy Copies To 1: DIANA CHEUNG JOSHUA T MD Jun 10, 2021 00:06
[2021-06-10 01:10] VITALS: BP 136/71
[2021-06-11] MEDS ORDERED: rocephin IM (11:33)
[2021-06-11] MEDS ORDERED: lidocaine IM (11:33)
== END 2021-06-10 01:16 | disposition home or self-care (01) ==
LOC: EDUNIT# 20:45 → ER 20:46
DX: R41.82 Altered mental status, unspecified (principal); E87.6 Hypokalemia; G40.909 Epilepsy, unspecified, not intractable, without status epilepticus; F41.9 Anxiety disorder, unspecified; Z79.899 Other long term (current) drug therapy
CPT/HCPCS: 36415; 70450; 80053; 81000; 82947; 85025; 86141; 93005

== ENCOUNTER 2021-06-11 08:06 | Emergency (ER) | payer MEDICAID ==
[~2021-06-11] VITALS: Ht 147 cm; Wt 55.0 kg
[2021-06-11] MEDS ORDERED: LACTATED RINGERS 1,000 ML IV ONE ×3 (08:15→11:31)
--- NOTE | 2021-06-11 08:18 | ED General ---
General Stated Complaint: LETHARGY Source of Information: Patient, EMS Exam Limitations: Other History of Present Illness Date Seen by Provider: Jun 11, 2021 Time Seen by Provider: 08:00 Initial Comments Patient to the ER by EMS from home at [facility] where she is a resident and chief complaint of altered mental status decreased appetite for the past 3 days. She typically leans to the left hand has a history of being a quadriplegic. No medical records accompany her. Patient is able to state that she is not having any nausea but she has been coughing a lot the last several days. Blood sugar was in the 90s. No mention of fever. No diarrhea. Patient states she thinks she has urinated herself. She denies any pain. Allergies and Home Medications Allergies Coded Allergies: No Known Drug Allergies (Unverified , 02/10/13) Home Medications Acetaminophen 325 Mg Tab, 2 TAB PO Q6HR PRN, (Reported) TYLENOL 325MG TABLET PO EVERY 6HRS PRN PAIN/TEMP Betamethasone/Clotrimazole 15 Gm Cream.gm., 0 TOP TID, (Reported) APPLY TO AFFECTED AREA(S) Ciprofloxacin HCl 500 Mg Tablet, 500 MG PO BID Prescribed by: JUNIOR GORE on 05/25/14 1229 Clonazepam 0.5 Mg Tablet, 1 EACH PO DAILY, (Reported) Clonazepam 0.5 Mg Tablet, 2 TAB PO HS, (Reported) Hydrocodone Bit/Acetaminophen 1 Tab Tablet, 1-2 EACH PO Q6H, (Reported) Lacosamide 150 Mg Tablet, 200 MG PO BID, (Reported) VIMPAT 150MG TABLET TAKE ONE TAB PO TWICE DAILY Lorazepam 1 Mg Tab, 1 MG PO PRN PRN, (Reported) ATIVAN 1MG TABLET BY MOUTH NEEDED FOR ABORTING SEIZURE AND THEN AFTER SEIZURE IS OVER Metronidazole 500 Mg Tab, 500 MG PO TID Prescribed by: JUNIOR GORE on 05/25/14 1229 Mupirocin 22 Gm Tube, 0 TP BID, (Reported) APPLY TO SPARINGLY TO AFFECTED AREA(S) Na Phos,M-B/Na Phos,Di-Ba 133 Ml Enema, 133 ML RC BID Prescribed by: CULLEN LEE on 03/19/20 1332 Omeprazole 20 Mg Capsule.dr, 20 MG PO DAILY, (Reported) PRILOSEC 20MG CAPSULE PO ONCE DAILY IN THE MORNING BEFORE BREAKFAST Tramadol Hcl 50 Mg Tab, 50 MG PO Q6H PRN for PAIN, (Reported) Patient Home Medication List Home Medication List Reviewed: Yes Review of Systems Review of Systems Constitutional: No chills, No diaphoresis; malaise EENTM: No ear discharge, No ear pain Respiratory: cough; No phlegm, No short of breath Cardiovascular: No chest pain, No palpitations Gastrointestinal: No abdominal pain, No constipation, No diarrhea, No nausea Genitourinary: No discharge, No dysuria Musculoskeletal: No back pain, No joint pain All Other Systems Reviewed Negative Unless Noted: Yes Past Epysvdg-Jdvocg-Rruuia Hx Patient Social History Tobacco Use?: No Use of E-Cig and/or Vaping dev: No Substance use?: No Alcohol Use?: No Immunizations Up To Date Tetanus Booster (TDap): More than 5yrs PED Vaccines UTD: No Past Medical History Surgeries: Yes Respiratory: No Cardiac: No Neurological: Yes Seizure Disorder Reproductive Disorders: No Bladder Infection Gastrointestinal: Yes Diverticulosis Musculoskeletal: Yes Fractures Endocrine: No Tonsilitis Cancer: No Psychosocial: Yes Anxiety 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 0.0oz. [id number]; 31.00 BMI Method:Estimated General Appearance: Chronically ill, Mild Distress, Obese Eyes: Bilateral Eye Normal Inspection, Bilateral Eye PERRL, Bilateral Eye EOMI HEENT: PERRL/EOMI, TMs Normal; No Pharynx Normal (Negative for injection or erythema but very dry oral mucosa), No Moist Mucous Membranes Neck: Non Tender, Supple, Other (Head held to the left apparently chronically) Respiratory: Lungs Clear, Normal Breath Sounds, No Accessory Muscle Use, No Respiratory Distress (Oxygen saturation 98 to 100%) Cardiovascular: Regular Rate, Rhythm, Normal Peripheral Pulses Gastrointestinal: Normal Bowel Sounds, Non Tender, Soft Extremity: Normal Capillary Refill, Normal Inspection, No Pedal Edema Neurologic/Psychiatric: Alert, No Motor/Sensory Deficits, Normal Mood/Affect, Other (Oriented to person and place) Skin: Ecchymosis (Forearms related to IV sites) Progress/Results/Core Measures Suspected Sepsis SIRS Temperature: Pulse: Respiratory Rate: Laboratory Tests 06/11/21 09:55: White Blood Count 3.5L Blood Pressure / Mean: Laboratory Tests 06/11/21 09:55: Creatinine 0.73, Platelet Count 166, Total Bilirubin 1.3H Results/Orders Lab Results Laboratory Tests Test 06/11/21 08:20 06/11/21 08:30 06/11/21 09:55 Range/Units Influenza Type A (RT-PCR) Not Detected Not Detecte Influenza Type B (RT-PCR) Not Detected Not Detecte SARS-CoV-2 RNA (RT-PCR) Not Detected Not Detecte Urine Color YELLOW Urine Clarity CLEAR Urine pH 6.0 5-9 Urine Specific Benedict >=1.030 1.016-1.022 Urine Protein 1+ H NEGATIVE Urine Glucose (UA) TRACE H NEGATIVE Urine Ketones TRACE H NEGATIVE Urine Nitrite POSITIVE H NEGATIVE Urine Bilirubin 2+ H NEGATIVE Urine Urobilinogen >=8.0 < = 1.0 MG/DL Urine Leukocyte Esterase NEGATIVE NEGATIVE Urine RBC (Auto) TRACE-I NEGATIVE Urine RBC NONE /HPF Urine WBC 5-10 H /HPF Urine Squamous Epithelial Cells 5-10 /HPF Urine Renal Epithelial Cells 2-5 /HPF Urine Crystals NONE /LPF Urine Bacteria LARGE H /HPF Urine Casts NONE /LPF Urine Mucus SMALL H /LPF Urine Yeast MODERATE H /HPF Urine Culture Indicated YES White Blood Count 3.5 L 4.3-11.0 10^3/uL Red Blood Count 4.92 3.80-5.11 10^6/uL Hemoglobin 16.6 H 11.5-16.0 g/dL Hematocrit 50 35-52 % Mean Corpuscular Volume 102 H 80-99 fL Mean Corpuscular Hemoglobin 34 25-34 pg Mean Corpuscular Hemoglobin Concent 33 32-36 g/dL Red Cell Distribution Width 13.2 10.0-14.5 % Platelet Count 166 130-400 10^3/uL Mean Platelet Volume 9.1 9.0-12.2 fL Immature Granulocyte % (Auto) 0 % Neutrophils (%) (Auto) 44 42-75 % Lymphocytes (%) (Auto) 42 12-44 % Monocytes (%) (Auto) 12 0-12 % Eosinophils (%) (Auto) 1 0-10 % Basophils (%) (Auto) 1 0-10 % Neutrophils # (Auto) 1.5 L 1.8-7.8 10^3/uL Lymphocytes # (Auto) 1.5 1.0-4.0 10^3/uL Monocytes # (Auto) 0.4 0.0-1.0 10^3/uL Eosinophils # (Auto) 0.1 0.0-0.3 10^3/uL Basophils # (Auto) 0.0 0.0-0.1 10^3/uL Immature Granulocyte # (Auto) 0.0 0.0-0.1 10^3/uL Sodium Level 142 135-145 MMOL/L Potassium Level 3.6 3.6-5.0 MMOL/L Chloride Level 105 98-107 MMOL/L Carbon Dioxide Level 24 21-32 MMOL/L Anion Gap 13 5-14 MMOL/L Blood Urea Nitrogen 7 7-18 MG/DL Creatinine 0.73 0.60-1.30 MG/DL Estimat Glomerular Filtration Rate 86 BUN/Creatinine Ratio 10 Glucose Level 100 70-105 MG/DL Calcium Level 9.5 8.5-10.1 MG/DL Corrected Calcium 9.7 8.5-10.1 MG/DL Magnesium Level 2.0 1.6-2.4 MG/DL Total Bilirubin 1.3 H 0.1-1.0 MG/DL Aspartate Amino Transf (AST/SGOT) 75 H 5-34 U/L Alanine Aminotransferase (ALT/SGPT) 44 0-55 U/L Alkaline Phosphatase 134 40-136 U/L C-Reactive Protein High Sensitivity 0.72 H 0.00-0.50 MG/DL Total Protein 9.7 H 6.4-8.2 GM/DL Albumin 3.8 3.2-4.5 GM/DL My Orders Orders - LUCIE CALLAWAY 19 Inhouse Test (06/11/21 08:12) Cbc With Automated Diff (06/11/21 08:12) Comprehensive Metabolic Panel (06/11/21 08:12) Hs C Reactive Protein (06/11/21 08:12) Magnesium (06/11/21 08:12) Ua Culture If Indicated (06/11/21 08:12) Straight Cath For Spec.-Adult (06/11/21 08:12) Influenza A And B By Pcr (06/11/21 08:12) Chest 1 View, Ap/Pa Only (06/11/21 08:12) Ed Iv/Invasive Line Start (06/11/21 08:12) Lactated Ringers (Lr 1000 Ml Iv Solution (06/11/21 08:15) Urine Bedside (06/11/21 08:18) Urine Culture (06/11/21 08:30) Ceftriaxone (Rocephin) (06/11/21 09:15) Lr 1000 Ml Wide Open (06/11/21 11:30) Medications Given in ED Current Medications Medications Dose Ordered Sig/Horace Route Start Time Stop Time Status Last Admin Dose Admin Ceftriaxone Sodium 1000 mg/ Sterile Water 10 ml @ 200 mls/hr ONCE ONCE IV 06/11/21 09:15 06/11/21 09:17 DC 06/11/21 09:46 200 MLS/HR Lactated Ringer's 1,000 ml @ 0 mls/hr Q0M ONCE IV 06/11/21 08:15 06/11/21 08:16 DC 06/11/21 08:22 1,000 MLS/HR Vital Signs/I&O 06/11/21 08:06 Temp 36.7 Pulse 79 Resp 16 B/P (MAP) 118/71 (87) Pulse Ox 97 O2 Delivery Room Air Capillary Refill : Progress Note #1: Time: 08:23 Progress Note Patient brought to the ER yesterday by EMS for similar situation of not eating or drinking and right side hemiplegia secondary to a stroke as well as mental disabilities. Lab work was largely unrevealing other than a potassium of 3.3. CRP unremarkable, urine was unremarkable. Patient was given a liter of lactated Ringer's and allowed to return home and encourage extra fluids. She was not tested for Covid or influenza at that time. We will give her a test for Covid and influenza recapture a straight catheter of urine and give her a liter of fluids today as well as check labs including a magnesium. She appears largely unchanged compared to yesterday's report. Progress Note #2: Time: 11:24 Progress Note Spoke to staff and they do have a nurse available who can do daily IM injections so we're going to attempt Rocephin outpatient and follow-up in the clinic. Diagnostic Imaging Diagonstic Imaging: Xray Plain Films/CT/US/NM/MRI: chest Comments [facility] [place], [place] NAME: RADHAMES DIAZ MED REC#: [id number] PT STATUS: REG ER : 1975 PHYSICIAN: LUCIE CALLAWAY MD ADMIT DATE: 06/11/21/ER Draft Date of Exam:06/11/21 CHEST 1 VIEW, AP/PA ONLY INDICATION: Increasing lethargy. TIME OF EXAM: 9:35 AM Correlation is made with prior chest from 01/02/2020. The heart is enlarged but stable. There appear to be central congestive changes but no overt failure. No effusion or pneumothorax is identified. IMPRESSION: Cardiomegaly with central congestive changes. Dictated on workstation # [id number] Dict: 06/11/21 0940 Trans: 06/11/21 0942 CV [id number] Interpreted by: YASMIN ROBBINS MD Electronically signed by: Reviewed: Reviewed by Me Departure Impression Primary Impression: UTI (urinary tract infection) Qualified Codes: N30.00 - Acute cystitis without hematuria Additional Impressions: Delirium due to another medical condition, acute, hypoactive Dehydration Disposition: 01 HOME, SELF-CARE Condition: Stable Departure-Patient Inst. Decision time for Depature: 11:28 Referrals: DIANA CHEUNG DO (PCP/Family) Primary Care Physician Patient Instructions: Urinary Tract Infection, Adult (DC), Delirium (Confusion) Add. Discharge Instructions: You have delirium which will cause intermittent worsening and improving confusion. This is caused by the infection in your bladder. It should resolve within a week or 2 of your bladder infections resolution. Expect your bladder infection to go away after 3 days of antibiotics. Drink lots of fluids to keep from being dehydrated. Return to the ER if you cannot keep fluids down to become dehydrated or have worsening symptoms such as a fever above 102.5, heart rate greater than 100 or other worrisome symptoms. Scripts [lidocaine] 1% No Conflict Check 2.1 ML IM DAILY for 3 Days, #20 ML 0 Refills Prov: LUCIE CALLAWAY 06/11/21 [rocephin] No Conflict Check 1 GM IM DAILY for 3 Days, #3 GM 0 Refills Prov: LUCIE CALLAWAY 06/11/21 Copy Copies To 1: DIANA CHEUNG DO LUCIE CALLAWAY Jun 11, 2021 08:18
[2021-06-11 08:42] LABS: CLARITY,URINE CLEAR; COLOR,URINE YELLOW; GLUCOSE, URINE (UA) TRACE (NEGATIVE); KETONES,URINE TRACE (NEGATIVE); LEUKOCYTE ESTERASE ,URINE NEGATIVE (NEGATIVE); NITRITE,URINE POSITIVE (NEGATIVE); PROTEIN,URINE 1+ (NEGATIVE)
[2021-06-11 08:53] LABS: BILIRUBIN,URINE 2+ (NEGATIVE)
[2021-06-11 08:56] LABS: BACTERIA,URINE LARGE /HPF; YEAST,URINE MODERATE /HPF
[2021-06-11] MEDS ORDERED: cefTRIAXone 1,000 MG in WATER (STERILE) FOR INJECTION 10 ML IV ONE (09:15)
--- NOTE | 2021-06-11 09:42 | Diagnostic Imaging Report ---
INDICATION: Increasing lethargy. TIME OF EXAM: 9:35 AM Correlation is made with prior chest from 01/02/2020. The heart is enlarged but stable. There appear to be central congestive changes but no overt failure. No effusion or pneumothorax is identified. IMPRESSION: Cardiomegaly with central congestive changes. Dictated by: Dictated on workstation # [id number]
[2021-06-11 10:02] LABS: BASOPHILS % (AUTO) 1 % (0-10); EOSINOPHILS # (AUTO) 0.1 10^3/uL (0.0-0.3); EOSINOPHILS % (AUTO) 1 % (0-10); HEMATOCRIT 50 % (35-52); HEMOGLOBIN 16.6 g/dL (11.5-16.0); LYMPHOCYTES # (AUTO) 1.5 10^3/uL (1.0-4.0); LYMPHOCYTES % (AUTO) 42 % (12-44); MEAN CORPUSCULAR HEMOGLOBIN 34 pg (25-34); MEAN CORPUSCULAR HGB CONC 33 g/dL (32-36); MEAN CORPUSCULAR VOLUME 102 fL (80-99); MEAN PLATELET VOLUME 9.1 fL (9.0-12.2); MONOCYTES # (AUTO) 0.4 10^3/uL (0.0-1.0); MONOCYTES % (AUTO) 12 % (0-12); NEUTROPHILS # (AUTO) 1.5 10^3/uL (1.8-7.8); NEUTROPHILS % (AUTO) 44 % (42-75); PLATELET COUNT 166 10^3/uL (130-400); WHITE BLOOD COUNT 3.5 10^3/uL (4.3-11.0)
[2021-06-11 10:14] LABS: ALBUMIN 3.8 GM/DL (3.2-4.5); POTASSIUM 3.6 MMOL/L (3.6-5.0)
[2021-06-11 10:16] LABS: CALCIUM 9.5 MG/DL (8.5-10.1)
[2021-06-11 10:17] LABS: TOTAL PROTEIN 9.7 GM/DL (6.4-8.2)
[2021-06-11 10:19] LABS: BILIRUBIN,TOTAL 1.3 MG/DL (0.1-1.0)
[2021-06-11 10:20] LABS: CREATININE SERUM 0.73 MG/DL (0.60-1.30)
[2021-06-11] MEDS ORDERED: rocephin IM (11:33)
[2021-06-11] MEDS ORDERED: lidocaine IM (11:33)
[2021-06-11 13:17] VITALS: BP 117/61
== END 2021-06-11 13:15 | disposition home or self-care (01) ==
LOC: EDUNIT# 08:06 → ER 08:07
DX: N39.0 Urinary tract infection, site not specified (principal); F05 Delirium due to known physiological condition; E86.0 Dehydration; E66.9 Obesity, unspecified; G40.909 Epilepsy, unspecified, not intractable, without status epilepticus; F41.9 Anxiety disorder, unspecified; Z20.822 Contact with and (suspected) exposure to COVID-19; Z68.31 Body mass index [BMI] 31.0-31.9, adult; Z79.899 Other long term (current) drug therapy
CPT/HCPCS: 36415; 51701; 71045; 80053; 81000; 83735; 84703; 85025; 86141; 87077; 87088; 87636

== ENCOUNTER 2021-06-17 10:37 | Observation (INO) | payer MEDICAID ==
[~2021-06-17] VITALS: Ht 145 cm; Wt 73.8 kg
[~2021-06-17 10:37] MED LIST changes: +lidocaine IM; +rocephin IM
[2021-06-17] MEDS ORDERED: NS IV 1000 ML 1,000 ML IV SCH (11:30)
[2021-06-17 11:51] LABS: CLARITY,URINE CLEAR; COLOR,URINE AMBER; GLUCOSE, URINE (UA) NEGATIVE (NEGATIVE); KETONES,URINE NEGATIVE (NEGATIVE); LEUKOCYTE ESTERASE ,URINE NEGATIVE (NEGATIVE); NITRITE,URINE NEGATIVE (NEGATIVE); PROTEIN,URINE TRACE (NEGATIVE)
[2021-06-17 11:55] LABS: BASOPHILS % (AUTO) 1 % (0-10); EOSINOPHILS % (AUTO) 1 % (0-10); HEMATOCRIT 52 % (35-52); HEMOGLOBIN 18.2 g/dL (11.5-16.0); LYMPHOCYTES # (AUTO) 1.5 10^3/uL (1.0-4.0); LYMPHOCYTES % (AUTO) 38 % (12-44); MEAN CORPUSCULAR HEMOGLOBIN 34 pg (25-34); MEAN CORPUSCULAR HGB CONC 35 g/dL (32-36); MEAN CORPUSCULAR VOLUME 99 fL (80-99); MEAN PLATELET VOLUME 9.5 fL (9.0-12.2); MONOCYTES # (AUTO) 0.5 10^3/uL (0.0-1.0); MONOCYTES % (AUTO) 13 % (0-12); NEUTROPHILS # (AUTO) 1.9 10^3/uL (1.8-7.8); NEUTROPHILS % (AUTO) 48 % (42-75); PLATELET COUNT 129 10^3/uL (130-400)
[2021-06-17 11:56] LABS: ALBUMIN 3.5 GM/DL (3.2-4.5); POTASSIUM 3.7 MMOL/L (3.6-5.0)
[2021-06-17 11:57] LABS: CALCIUM 9.4 MG/DL (8.5-10.1)
[2021-06-17 12:00] LABS: BILIRUBIN,TOTAL 0.9 MG/DL (0.1-1.0)
[2021-06-17 12:02] LABS: CREATININE SERUM 0.68 MG/DL (0.60-1.30)
[2021-06-17 12:14] LABS: BACTERIA,URINE MODERATE /HPF
[2021-06-17 12:49] LABS: BILIRUBIN,URINE 1+ (NEGATIVE)
[2021-06-17] MEDS ORDERED: VIMPAT 200 MG PO SCH (13:45)
--- NOTE | 2021-06-17 14:48 | ED General ---
General Chief Complaint: General Problems/Pain Stated Complaint: POSS STROKE Nursing Triage Note: PT ARRIVED PER W/C FROM DR PARRSIH OFFICE. STAFF W PT STATES SHE HAS BEEN EATING AND DRINKING POORLY AND NOT ACTING LIKE SELF. PT MOUTH VERY DRY Source of Information: Patient, Caregiver Exam Limitations: No Limitations History of Present Illness Date Seen by Provider: Jun 17, 2021 Time Seen by Provider: 11:25 Initial Comments This 45-year-old woman presents to the emergency room from Dr. Cheung's office for further evaluation in the ER. She is a client of [facility]. She has been seen twice in the ER and twice in Dr. Cheung's office over the past couple of weeks. She has been experiencing decline including poor oral intake, decreased alertness, decrease in verbal communication, and worsening weakness. Mucous membranes are quite dry. On her second visit to the ER she was diagnosed with urinary tract infection and started on a series of Rocephin injections. On her first ER visit she had a CT scan performed which demonstrated no acute changes from prior. 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 She is res ponsive today and answer some questions. She denies it be paid at this time. Staff reports that she has previously complained of headache and backache. Allergies and Home Medications Allergies Coded Allergies: No Known Drug Allergies (Unverified , 02/10/13) Home Medications Acetaminophen 325 Mg Capsule, 650 MG PO Q6H PRN for PAIN-MILD (1-4), (Reported) Last Action: Converted Calcium Carbonate 500 Mg Tab.chew, 1,000 MG PO Q4H PRN for HEARTBURN, (Reported) Last Action: Held Clonazepam 0.5 Mg Tablet, 0.5 MG PO 0800,1200, (Reported) Last Action: Reviewed Clonazepam 1 Mg Tablet, 1 MG PO HS, (Reported) Last Action: Continued Clotrimazole/Betamethasone Dip 15 Gm Cream..g., 1 APPLIC TP Q8H PRN for RASH, (Reported) APPLY TO ABDOMINAL FOLD AND UNDER BREASTS Last Action: Held Diphenhydramine HCl 25 Mg Tablet, 25-50 MG PO Q6H PRN for ALLERGIC REACTIONS, (Reported) Last Action: Held Famotidine 20 Mg Tablet, 20 MG PO BID, (Reported) Last Action: Continued Furosemide 40 Mg Tablet, 40 MG PO DAILY, (Reported) Last Action: Held Guaifenesin/Dextromethorphan 5 Ml Liquid, 10 ML PO Q6H PRN for COUGH, (Reported) Last Action: Held Hydrocortisone Acetate 28 Gm Oint...g., 1 APPLIC TP Q8H PRN for RASH, (Reported) Last Action: Reviewed Lacosamide 200 Mg Tablet, 200 MG PO BID, (Reported) Last Action: Converted Lamotrigine 200 Mg Tablet, 200 MG PO QID, (Reported) Last Action: Converted Loperamide HCl 2 Mg Capsule, 2-4 MG PO UD PRN for DIARRHEA, (Reported) Last Action: Held Magnesium Hydroxide 400 Mg/5 Ml Oral.susp, 30 ML PO Q12H PRN for CONSTIPATION- 7TH LINE, (Reported) Last Action: Held Menthol 5.4 Mg Lozenge, 5.4 MG MM Q1H PRN for COUGH, (Reported) Last Action: Held Menthol/Lanolin/Calamine/Znox 71 Gm Oint, 1 APPLIC TP BID, (Reported) Last Action: Held Multivitamins,Therapeutic 1 Each Tablet, 1 EACH PO DAILY, (Reported) Last Action: Held Neomycin Chapman/Bacitrac Zn/Poly 28.3 Gm Oint...g., 1 APPLIC TP Q12H PRN for MINOR CUTS AND ABRASIONS, (Reported) Last Action: Held Nystatin 1 Each Powder.ea., 1 EACH TOP BID, (Reported) APPLY TO BUTTOCKS Last Action: Held Peg 400/Hypromellose/Glycerin 15 Ml Drops, 2 DROPS OU Q6H PRN for REDNESS/IRRITATION, (Reported) Last Action: Held Patient Home Medication List Home Medication List Reviewed: Yes Review of Systems Review of Systems Constitutional: see HPI EENTM: see HPI Respiratory: no symptoms reported Cardiovascular: no symptoms reported Gastrointestinal: see HPI Genitourinary: see HPI : No Musculoskeletal: no symptoms reported Skin: other (Skin breakdown on the posterior right thigh where thigh contact the edge of the wheelchair) Psychiatric/Neurological: See HPI Hematologic/Lymphatic: No Symptoms Reported Immunological/Allergic: no symptoms reported Past Qsjwjdc-Dkgxzh-Lvraoe Hx Patient Social History Tobacco Use?: No Substance use?: No Alcohol Use?: No Pt feels they are or have been: No Immunizations Up To Date Tetanus Booster (TDap): More than 5yrs PED Vaccines UTD: No Past Medical History Surgeries: Yes Respiratory: No Cardiac: No Neurological: Yes (Chronic neurologic deficits with right-sided paralysis.) Seizure Disorder Reproductive Disorders: No Bladder Infection Gastrointestinal: Yes Diverticulosis Musculoskeletal: Yes Fractures Endocrine: No Tonsilitis Cancer: No Psychosocial: Yes Anxiety 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 0.0oz. 90.544516hr; 51.00 BMI Method:Estimated General Appearance: No Apparent Distress, WD/WN, Obese HEENT: PERRL/EOMI, Normal ENT Inspection, Other (Dry oropharynx) Neck: Normal Inspection Respiratory: Lungs Clear, Normal Breath Sounds, No Accessory Muscle Use Cardiovascular: Regular Rate, Rhythm, No Edema, No Murmur Gastrointestinal: Normal Bowel Sounds, Non Tender, Soft Extremity: Normal Inspection, Non Tender, Other (Skin breakdown on the posterior right thigh) Neurologic/Psychiatric: Alert, Other (Somnolent, chronic motor deficits noted on the right) Skin: Normal Color, Warm/Dry Progress/Results/Core Measures Suspected Sepsis SIRS Temperature: Pulse: 84 Respiratory Rate: 20 Laboratory Tests 06/17/21 11:05: White Blood Count 4.0L Blood Pressure 115 /69 Mean: 84 Laboratory Tests 06/17/21 11:05: Creatinine 0.68, Platelet Count 129L, Total Bilirubin 0.9 Results/Orders Lab Results Laboratory Tests Test 06/17/21 10:53 06/17/21 11:05 Range/Units Glucometer 109 70-110 MG/DL White Blood Count 4.0 L 4.3-11.0 10^3/uL Red Blood Count 5.31 H 3.80-5.11 10^6/uL Hemoglobin 18.2 H 11.5-16.0 g/dL Hematocrit 52 35-52 % Mean Corpuscular Volume 99 80-99 fL Mean Corpuscular Hemoglobin 34 25-34 pg Mean Corpuscular Hemoglobin Concent 35 32-36 g/dL Red Cell Distribution Width 13.3 10.0-14.5 % Platelet Count 129 L 130-400 10^3/uL Mean Platelet Volume 9.5 9.0-12.2 fL Immature Granulocyte % (Auto) 0 % Neutrophils (%) (Auto) 48 42-75 % Lymphocytes (%) (Auto) 38 12-44 % Monocytes (%) (Auto) 13 H 0-12 % Eosinophils (%) (Auto) 1 0-10 % Basophils (%) (Auto) 1 0-10 % Neutrophils # (Auto) 1.9 1.8-7.8 10^3/uL Lymphocytes # (Auto) 1.5 1.0-4.0 10^3/uL Monocytes # (Auto) 0.5 0.0-1.0 10^3/uL Eosinophils # (Auto) 0.0 0.0-0.3 10^3/uL Basophils # (Auto) 0.0 0.0-0.1 10^3/uL Immature Granulocyte # (Auto) 0.0 0.0-0.1 10^3/uL Urine Color ALIREZA H Urine Clarity CLEAR Urine pH 6.0 5-9 Urine Specific [place] >=1.030 1.016-1.022 Urine Protein TRACE H NEGATIVE Urine Glucose (UA) NEGATIVE NEGATIVE Urine Ketones NEGATIVE NEGATIVE Urine Nitrite NEGATIVE NEGATIVE Urine Bilirubin 1+ H NEGATIVE Urine Urobilinogen >=8.0 < = 1.0 MG/DL Urine Leukocyte Esterase NEGATIVE NEGATIVE Urine RBC (Auto) NEGATIVE NEGATIVE Urine RBC NONE /HPF Urine WBC 2-5 /HPF Urine Squamous Epithelial Cells 5-10 /HPF Urine Crystals NONE /LPF Urine Bacteria MODERATE H /HPF Urine Casts PRESENT /LPF Urine Hyaline Casts 2-5 H /LPF Urine Mucus LARGE H /LPF Urine Culture Indicated YES Sodium Level 141 135-145 MMOL/L Potassium Level 3.7 3.6-5.0 MMOL/L Chloride Level 105 98-107 MMOL/L Carbon Dioxide Level 24 21-32 MMOL/L Anion Gap 12 5-14 MMOL/L Blood Urea Nitrogen 12 7-18 MG/DL Creatinine 0.68 0.60-1.30 MG/DL Estimat Glomerular Filtration Rate 93 BUN/Creatinine Ratio 18 Glucose Level 109 H 70-105 MG/DL Calcium Level 9.4 8.5-10.1 MG/DL Corrected Calcium 9.8 8.5-10.1 MG/DL Magnesium Level 2.0 1.6-2.4 MG/DL Total Bilirubin 0.9 0.1-1.0 MG/DL Aspartate Amino Transf (AST/SGOT) 82 H 5-34 U/L Alanine Aminotransferase (ALT/SGPT) 42 0-55 U/L Alkaline Phosphatase 104 40-136 U/L C-Reactive Protein High Sensitivity 0.49 0.00-0.50 MG/DL Total Protein 9.0 H 6.4-8.2 GM/DL Albumin 3.5 3.2-4.5 GM/DL My Orders Orders - KARLI GIFFORD MD Cbc With Automated Diff (06/17/21 11:25) Comprehensive Metabolic Panel (06/17/21 11:25) Magnesium (06/17/21 11:25) Ed Iv/Invasive Line Start (06/17/21 11:25) Ns Iv 1000 Ml (Sodium Chloride 0.9%) (06/17/21 11:30) Hs C Reactive Protein (06/17/21 11:25) Ua Culture If Indicated (06/17/21 11:25) Urine Culture (06/17/21 11:05) Vital Signs/I&O 06/17/21 10:40 Temp 36.8 Pulse 84 Resp 20 B/P (MAP) 115/69 (84) Pulse Ox 97 Capillary Refill : Less Than 3 Seconds Blood Pressure Mean: 84 Point of Care Testing Finger Stick Blood Glucose: 109 Blood Glucose Action Taken: Reported to Jocelin Progress Note : Progress Note Mucous membranes were dry and specific gravity of urine was high. This suggests patient has a hydration deficit. A liter of IV fluids was ordered. Ancef was given for persistent urinary tract infection based on culture results. I discussed admission with Dr. Ayon since patient has had numerous visits in the last couple of weeks and has not improved. She is agreeable to admission. We will hydrate through the night, treat UTI, and obtain an MRI in the morning. Departure Communication (Admissions) Time/Spoke to Admitting Phy: 13:22 Dr. Santana Impression Primary Impression: Generalized weakness Additional Impressions: Urinary tract infection Qualified Codes: N39.0 - Urinary tract infection, site not specified Altered mental status Qualified Codes: R41.82 - Altered mental status, unspecified Disposition: 09 ADMITTED INPATIENT Condition: Improved Admissions Decision to Admit Reason: Admit from ER (General) Decision to Admit/Date: Jun 17, 2021 Time/Decision to Admit Time: 13:22 Departure-Patient Inst. Referrals: DIANA CHEUNG DO (PCP/Family) Primary Care Physician Copy Copies To 1: DIANA CHEUNG JOSHUA T MD Jun 17, 2021 14:48
[2021-06-17 16:00] VITALS: BP 111/74
[2021-06-17] MEDS: LACTATED RINGERS 1,000 ML IV SCH ×2 (16:05→23:23)
[2021-06-17] MEDS ORDERED: FAMO20TA5 PO (16:27)
[2021-06-17] MEDS ORDERED: MENT71OI TP (16:27)
[2021-06-17] MEDS ORDERED: FURO40TA4 PO (16:27)
[2021-06-17] MEDS ORDERED: LACO200T2 PO (16:27)
[2021-06-17] MEDS ORDERED: LOPE-175 PO (16:27)
[2021-06-17] MEDS ORDERED: DIPH25TA65 PO (16:27)
[2021-06-17] MEDS ORDERED: MULT-619 PO (16:27)
[2021-06-17] MEDS ORDERED: ACET325C7 PO (16:27)
[2021-06-17] MEDS ORDERED: HYDR28OI2 TP (16:27)
[2021-06-17] MEDS ORDERED: LAMO200T5 PO (16:27)
[2021-06-17] MEDS ORDERED: PEG15DRO3 OU (16:27)
[2021-06-17] MEDS ORDERED: CALC-308 PO (16:27)
[2021-06-17] MEDS ORDERED: MAGN400O7 PO (16:27)
[2021-06-17] MEDS ORDERED: GUAI5LIQ11 PO (16:27)
[2021-06-17] MEDS ORDERED: CLON0.5T4 PO (16:27)
[2021-06-17] MEDS ORDERED: CLON1TAB13 PO (16:27)
[2021-06-17] MEDS ORDERED: CLOT15CR6 TP (16:27)
[2021-06-17] MEDS ORDERED: NEOM28.33 TP (16:27)
[2021-06-17] MEDS ORDERED: [UNRECOGNIZED DRUG - CODE] MM (16:27)
[2021-06-17] MEDS ORDERED: NYST1POW31 TOP (16:27)
[2021-06-17] MEDS: ceFAZolin 1,000 MG/SWFI 10 ML IV PUSH IV SCH ×2 (17:24)
[2021-06-17] MEDS ORDERED: NON-FORMULARY MEDICATION 1 EA EA (Acetaminophen (Tylenol) 650 MG) PO PRN (19:30)
[2021-06-17 19:48] VITALS: BP 105/68
[2021-06-17] MEDS ORDERED: ACETAMINOPHEN 325 MG TABLET PO PRN (20:00)
[2021-06-17] MEDS ORDERED: NON-FORMULARY MEDICATION 1 EA EA (Lamotrigine 200 MG) PO SCH (21:00)
[2021-06-17] MEDS: clonazePAM 1 MG (KlonoPIN) TAB PO SCH (21:12)
[2021-06-17] MEDS: FAMOTIDINE 20 MG (PEPCID) TABLET PO SCH (21:12)
[2021-06-17 23:30] VITALS: BP 92/57
[2021-06-18] MEDS: ceFAZolin 1,000 MG/SWFI 10 ML IV PUSH IV SCH ×4 (03:55→16:33)
[2021-06-18 04:01] VITALS: BP 94/53
[2021-06-18 08:00] VITALS: BP 111/71
[2021-06-18] MEDS: FAMOTIDINE 20 MG (PEPCID) TABLET PO SCH ×2 (08:37→20:43)
[2021-06-18] MEDS: LACTATED RINGERS 1,000 ML IV SCH ×2 (08:38→16:34)
[2021-06-18 11:39] LABS: CALCIUM 8.6 MG/DL (8.5-10.1); CREATININE SERUM 0.61 MG/DL (0.60-1.30); POTASSIUM 3.6 MMOL/L (3.6-5.0)
[2021-06-18 12:00] VITALS: BP 101/64
[2021-06-18] MEDS ORDERED: PATIENT MAY USE OWN MED,SINGLE MED PO SCH (12:15)
[2021-06-18 12:32] LABS: HEMOGLOBIN 12.9 g/dL (11.5-16.0); MEAN PLATELET VOLUME 9.6 fL (9.0-12.2); WHITE BLOOD COUNT 4.2 10^3/uL (4.3-11.0)
--- NOTE | 2021-06-18 12:44 | History & Physical-Hospitalist ---
History of Present Illness HPI/Chief Complaint Pt is a 45yoCF with a PMH seizure disorder, intellectual delay, remote history of CVA with right sided deficits who presented to the ER due to lethargy. She had been since in the ER 2 times prior to yesterday's presentation. She is unable to provide any history and well say yes and no at times but it does not seem appropriate. All history is obtained from the records. She was seen in the ER on . where she had a CT Head that was negative. She returned to the ER on 06/11 and was diagnosed with a UTI and sent home with daily IM rocephin. She has continued to have decreased mentation and poor oral intake as well. She has also seen Dr Santos twice in this time frame. Source: patient Date Seen 06/18/21 Time Seen by a Provider: 12:40 Attending Physician Mj Santana MD PCP Rickie Santos DO Referring Physician Date of Admission Jun 17, 2021 at 14:53 Home Medications & Allergies Home Medications Reviewed patient Home Medication Reconciliation performed by pharmacy medication reconciliations veterinary assistant technician and/or nursing. Patients Allergies have been reviewed. Allergies Allergies Coded Allergies No Known Drug Allergies (Unverified02/10/13) Past Ybpvlkx-Kclfsl-Stbjdt Hx Patient Social History Employed/Student: unemployed Tobacco Use?: No Smoking Status: Never a Smoker Use of E-Cig and/or Vaping dev: No Substance use?: No Alcohol Use?: No Pt feels they are or have been: No Immunizations Up To Date First/Initial COVID19 Vaccinat: DECEMBER 13, 2020 Second COVID19 Vaccination [place]: JANUARY 10, 2021 Tetanus Booster (TDap): Unknown Hepatitis A: No Hepatitis B: No PED Vaccines UTD: No Current Status status: No status: No Advance Directives: Unable to obtain Communicates: Verbally Primary Language: Congolese Preferred Spoken Language: Congolese Is interpretation needed?: No Sensory deficits: Vision impairment, Speech impairment Implanted or Applied Medical D: None Past Medical History Seizure Disorder Bladder Infection Diverticulosis Fractures Tonsilitis Anxiety Recent Skin Changes Blood Disorders: No Adverse Reaction/Blood Tranf: No Family Medical History Reviewed Nursing Family Hx Alcoholism 19 MOTHER (mother , addicted to illegal drugs) No Pertinent Family Hx Review of Systems ROS-Unable to Obtain: clinical condition Constitutional: see HPI Physical Exam Physical Exam Vital Signs Vital Signs - First Documented 06/17/21 06/17/21 10:40 15:10 Temp 36.8 Pulse 84 Resp 20 B/P (MAP) 115/69 (84) Pulse Ox 97 O2 Delivery Room Air Capillary Refill : Less Than 3 Seconds Height, Weight, BMI Height: 4'8.00" Weight: 200lbs. 0.0oz. 90.426448yk; 35.10 BMI Method:Estimated General Appearance: No Apparent Distress, Chronically ill, Obese HEENT: PERRL/EOMI, Moist Mucous Membranes; No Scleral Icterus (L), No Scleral Icterus (R) Neck: Normal Inspection, Supple Respiratory: Lungs Clear, No Respiratory Distress Cardiovascular: Regular Rate, Rhythm, No Murmur Gastrointestinal: Normal Bowel Sounds, Non Tender, Soft Genital/Rectal: Other (mobley in place) Neurologic/Psychiatric: Alert, Oriented x3 Results Results/Procedures Labs Patient resulted labs reviewed. Imaging: Reviewed Imaging Report (CT HEAD FROM 06/09) Imaging [facility] [place] NAME: RADHAMES DIAZ [facility] REC#: [id number] PT STATUS: REG ER : 1975 PHYSICIAN: KARLI GIFFORD MD ADMIT DATE: 06/09/21/ER Signed Date of Exam:06/09/21 CT HEAD WO-R/O STROKE PROCEDURE: CT head wo r/o stroke. TECHNIQUE: Multiple contiguous axial images were obtained through the brain without the use of intravenous contrast. Auto Exposure Controls were utilized during the CT exam to meet ALARA standards for radiation dose reduction. INDICATION: 45-year-old female, change in mental status. CORRELATION STUDY: 05/24/2014 FINDINGS: Again demonstration of what appears to be massive enlargement of the left lateral ventricle with only a small rim-like area of the brain parenchyma remaining. Overall appearance is generally stable. The right cerebral hemisphere appears unchanged. No definitive new area of decreased attenuation to suggest edema. Posterior fossa also appears generally stable. Rather pronounced asymmetric hypertrophic changes about the left cerebral hemisphere. 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 IMPRESSION: 1. Overall generally stable appearance about the CT head examination. While there is marked abnormal appearance about the left cerebral hemisphere, no definitive new intracranial abnormality or changes have developed. Dictated by: Dictated on workstation # [id number] Dict: 06/09/212128 Trans: 06/09/212308 [facility] [id number] Interpreted by: SHAREE BECK DO Electronically signed by: SHAREE BECK DO 06/09/212308 Assessment/Plan Admission Diagnosis Lethargy and dehydration Admission Status: Observation Assessment and Plan Lethargy and dehydration UTI Unclear etiology of recent change COVID negative (remains in isolation due to exposure from [facility]) Was on Rocephin as an outpatient but has persistent pyuria, continue abx Await cultures MRI Brain ordered to evaluate for recurrent stroke Hold lasix and some of her sedating meds to see if it is contributing to decreased mentation Intellectual disability Seizure disorder Continue home meds DVT ppx: Lovenox Diagnosis/Problems Diagnosis/Problems (1) Seizure disorder (2) Intellectual disability (3) Altered mental status Status: Acute Qualifiers: Altered mental status type: unspecified Qualified Codes: R41.82 - Altered mental status, unspecified (4) Generalized weakness Status: Acute (5) Urinary tract infection Status: Acute Qualifiers: Urinary tract infection type: site unspecified Hematuria presence: without hematuria Qualified Codes: N39.0 - Urinary tract infection, site not specified MJ SANTANA MD Jun 18, 2021 12:44
[2021-06-18] MEDS: ENOXAPARIN 40 MG/0.4 ML (LOVENOX) SYR SQ SCH (15:01)
[2021-06-18 16:05] VITALS: BP 111/70
--- NOTE | 2021-06-18 17:37 | Diagnostic Imaging Report ---
EXAMINATION: MR imaging brain without contrast. TECHNIQUE: Multiplanar, multisequence MR imaging of the brain was performed without contrast. HISTORY: Altered mental status and weakness. COMPARISON: CT head from 06/09/2021. FINDINGS: Abnormal appearance of the left cerebral hemisphere with enlargement of the left lateral ventricle and near-complete loss of the left cerebral parenchyma. The right ventricles and sulci are normal in appearance. Mild diffuse T2/FLAIR hyperintensities throughout the supratentorial white matter of the right cerebral hemisphere. There may be increased fluid within the left extra-axial space, although this is difficult to ascertain given the severe global atrophy. No obvious abnormal extra-axial fluid collection. There are no areas of restricted diffusion or evidence of acute stroke. Flow voids are normal for major intracranial arteries and dural venous sinuses. The visualized paranasal sinuses are normal. The mastoid air cells are clear. The orbits are normal. IMPRESSION: 1. No acute intracranial abnormality or findings of acute stroke. 2. Stable abnormal appearance of the left cerebral hemisphere. Dictated by: Dictated on workstation # [id number]
[2021-06-18 20:00] VITALS: BP 113/68
[2021-06-18] MEDS: clonazePAM 1 MG (KlonoPIN) TAB PO SCH (20:43)
[2021-06-18] MEDS: VIMPAT 200 MG PO SCH (20:43)
[2021-06-18 23:43] VITALS: BP 104/57
[2021-06-19 03:25] VITALS: BP 109/67
[2021-06-19] MEDS: ceFAZolin 1,000 MG/SWFI 10 ML IV PUSH IV SCH ×2 (03:30)
[2021-06-19 08:00] VITALS: BP 112/73
[2021-06-19] MEDS: FAMOTIDINE 20 MG (PEPCID) TABLET PO SCH (09:06)
[2021-06-19] MEDS: VIMPAT 200 MG PO SCH (09:07)
[2021-06-19 12:00] VITALS: BP 117/75
--- NOTE | 2021-06-19 13:03 | Discharge Summary ---
Diagnosis/Chief Complaint Date of Admission Jun 17, 2021 at 14:53 Date of Discharge Admission Diagnosis Lethargy and dehydration Primary Care Rickie Santos DO Discharge Diagnosis (1) Seizure disorder (2) Intellectual disability (3) Altered mental status Status: Acute (4) Generalized weakness Status: Acute (5) Urinary tract infection Status: Acute Discharge Summary Discharge Physical Exam Allergies: Coded Allergies: No Known Drug Allergies (Unverified , 02/10/13) Vitals & I&Os Vital Signs Date Time Temp Pulse Resp B/P (MAP) Pulse Ox O2 Delivery O2 Flow Rate FiO2 06/19/21 15:58 35.9 89 20 117/75 93 Room Air General Appearance: No Apparent Distress, Chronically ill, Obese Respiratory: Lungs Clear, No Respiratory Distress Cardiovascular: Regular Rate, Rhythm, No Murmur Hospital Course Patient was admitted to the hospital due to dehydration and UTI. She had been seen in the ER twice with Dr. Santos twice in the past 2 weeks due to similar instances. She was treated with 3 days of IM Rocephin at her facility without improvement. She was admitted and started on IV fluids and did very well. An MRI was done which showed no acute infarcts. She was treated with cefazolin and improved. Her Lasix was held. She was discharged back to her facility and is to follow-up with Dr. Santos. I did discuss this with Dr. Santos. Labs (last 24 hrs) Microbiology 06/17/21 Urine Culture - Final, Complete NO GROWTH Patient resulted labs reviewed. Imaging: Reviewed Imaging Report Discussion & Recommendations Discharge Planning: >30 minutes discharge planning Discharge Home Medications: Active Scripts Active Cephalexin 500 Mg Tablet 500 Mg PO BID Reported Visine Tears Drops (Peg 400/Hypromellose/Glycerin) 15 Ml Drops 2 Drops OU Q6H PRN Vimpat (Lacosamide) 200 Mg Tablet 200 Mg PO BID Calcium (Calcium Carbonate) 500 Mg Tab.chew 1,000 Mg PO Q4H PRN Thera-Tabs (Multivitamins,Therapeutic) 1 Each Tablet 1 Each PO DAILY Guaifenesin-Dm 100-10 mg/5 ml (Guaifenesin/Dextromethorphan) 5 Ml Liquid 10 Ml PO Q6H PRN Nystatin 1 Each Powder.ea. 1 Each TOP BID APPLY TO BUTTOCKS Neosporin Ointment (Neomycin Chapman/Bacitrac Zn/Poly) 28.3 Gm Oint...g. 1 Applic TP Q12H PRN Milk of Magnesia (Magnesium Hydroxide) 400 Mg/5 Ml Oral.susp 30 Ml PO Q12H PRN Clotrimazole-Betamethasone Crm (Clotrimazole/Betamethasone Dip) 15 Gm Cream..g. 1 Applic TP Q8H PRN APPLY TO ABDOMINAL FOLD AND UNDER BREASTS Lamotrigine 200 Mg Tablet 200 Mg PO QID Imodium A-D (Loperamide HCl) 2 Mg Capsule 2-4 Mg PO UD PRN MDD 4 TABS Hydrocortisone (Hydrocortisone Acetate) 28 Gm Oint...g. 1 Applic TP Q8H PRN Famotidine 20 Mg Tablet 20 Mg PO BID Cough Drops (Menthol) 5.4 Mg Lozenge 5.4 Mg MM Q1H PRN MDD 8 LOZENGES Clonazepam 1 Mg Tablet 1 Mg PO HS Calmoseptine Ointment (Menthol/Lanolin/Calamine/Znox) 71 Gm Oint 1 Applic TP BID Benadryl Allergy (Diphenhydramine HCl) 25 Mg Tablet 25-50 Mg PO Q6H PRN Tylenol (Acetaminophen) 325 Mg Capsule 650 Mg PO Q6H PRN Instructions to patient/family Please see electronic discharge instructions given to patient. Problem Qualifiers (1) Altered mental status: Altered mental status type: unspecified Qualified Codes: R41.82 - Altered mental status, unspecified (2) Urinary tract infection: Urinary tract infection type: site unspecified Hematuria presence: without hematuria Qualified Codes: N39.0 - Urinary tract infection, site not specified MJ LEWIS MD Jun 19, 2021 13:03
[2021-06-19] MEDS ORDERED: CEPH500T PO (13:08)
--- NOTE | 2021-06-19 13:26 | Discharge Inst-Simple/Standard ---
Discharge Inst-Standard Discharge Medications New, Converted or Re-Newed RX: Transmitted to Pharmacy Patient Instructions/Follow Up Plan of Care/Instructions/FU: Please continue to take your medications as written. Please follow up with your primary care doctor to follow up this hospital stay. Activity as Tolerated: Yes Discharge Diet: No Restrictions Return to The Hospital For: Chest pain, shortness of breath, weakness, confusion, fever, decreased oral intake, if you feel you are getting worse. MJ LEWIS MD Jun 19, 2021 13:18
[2021-06-19] MEDS: ENOXAPARIN 40 MG/0.4 ML (LOVENOX) SYR SQ SCH (13:57)
[2021-06-19 15:58] VITALS: BP 117/75
== END 2021-06-19 16:03 | disposition other institution (70) ==
LOC: EDUNIT# 10:37 → ER 10:38 → 4TH 14:53
PROVIDERS: ADMIT Family Medicine; ATTEND Family Medicine
DX: G40.909 Epilepsy, unspecified, not intractable, without status epilepticus (principal); R53.1 Weakness; F79 Unspecified intellectual disabilities; R41.82 Altered mental status, unspecified; N39.0 Urinary tract infection, site not specified; F41.9 Anxiety disorder, unspecified; Z79.899 Other long term (current) drug therapy
CPT/HCPCS: 51702; 70551; 80048; 80053; 81000; 82947; 83735; 85025; 85027; 86141; 87088; 87636; 99284; G0378; 36415

== ENCOUNTER 2021-06-22 17:07 | Emergency (ER) | payer MEDICAID ==
[~2021-06-22] VITALS: Ht 147 cm; Wt 72.0 kg
[~2021-06-22 17:07] MED LIST changes: +ACET325C7 PO; +CALC-308 PO; +CEPH500T PO; +CLON0.5T4 PO; +CLON1TAB13 PO; +CLOT15CR6 TP; +DIPH25TA65 PO; +FAMO20TA5 PO; +FURO40TA4 PO; +GUAI5LIQ11 PO; +HYDR28OI2 TP; +LACO200T2 PO; +LAMO200T5 PO; +LOPE-175 PO; +MAGN400O7 PO; +MENT71OI TP; +MULT-619 PO; +NEOM28.33 TP; +NYST1POW31 TOP; +PEG15DRO3 OU; +[UNRECOGNIZED DRUG - CODE] MM
--- NOTE | 2021-06-22 17:16 | ED General ---
General Stated Complaint: DECREASED LOC Source of Information: Patient Exam Limitations: No Limitations History of Present Illness Date Seen by Provider: Jun 22, 2021 Time Seen by Provider: 17:13 Initial Comments To ER by [facility] from [place] where she resides with reports of decreased responsiveness during her shower. Upon arrival to ER she is alert and talking to us and states that she feels okay. She has been here 3 times previously this will be her fourth visit this week. Without finding each of the previous times. Timing/Duration: 1-2 Days Severity: Moderate Associated Systoms: Denies Symptoms Allergies and Home Medications Allergies Coded Allergies: No Known Drug Allergies (Unverified , 02/10/13) Home Medications Acetaminophen 325 Mg Capsule, 650 MG PO Q6H PRN for PAIN-MILD (1-4), (Reported) Calcium Carbonate 500 Mg Tab.chew, 1,000 MG PO Q4H PRN for HEARTBURN, (Reported) Cephalexin 500 Mg Tablet, 500 MG PO BID Prescribed by: MJ LEWIS on 06/19/21 1308 Clonazepam 1 Mg Tablet, 1 MG PO HS, (Reported) Clotrimazole/Betamethasone Dip 15 Gm Cream..g., 1 APPLIC TP Q8H PRN for RASH, (Reported) APPLY TO ABDOMINAL FOLD AND UNDER BREASTS Diphenhydramine HCl 25 Mg Tablet, 25-50 MG PO Q6H PRN for ALLERGIC REACTIONS, (Reported) Famotidine 20 Mg Tablet, 20 MG PO BID, (Reported) Guaifenesin/Dextromethorphan 5 Ml Liquid, 10 ML PO Q6H PRN for COUGH, (Reported) Hydrocortisone Acetate 28 Gm Oint...g., 1 APPLIC TP Q8H PRN for RASH, (Reported) Lacosamide 200 Mg Tablet, 200 MG PO BID, (Reported) Lamotrigine 200 Mg Tablet, 200 MG PO QID, (Reported) Loperamide HCl 2 Mg Capsule, 2-4 MG PO UD PRN for DIARRHEA, (Reported) Magnesium Hydroxide 400 Mg/5 Ml Oral.susp, 30 ML PO Q12H PRN for CONSTIPATION- 7TH LINE, (Reported) Menthol 5.4 Mg Lozenge, 5.4 MG MM Q1H PRN for COUGH, (Reported) Menthol/Lanolin/Calamine/Znox 71 Gm Oint, 1 APPLIC TP BID, (Reported) Multivitamins,Therapeutic 1 Each Tablet, 1 EACH PO DAILY, (Reported) Neomycin Chapman/Bacitrac Zn/Poly 28.3 Gm Oint...g., 1 APPLIC TP Q12H PRN for MINOR CUTS AND ABRASIONS, (Reported) Nystatin 1 Each Powder.ea., 1 EACH TOP BID, (Reported) APPLY TO BUTTOCKS Peg 400/Hypromellose/Glycerin 15 Ml Drops, 2 DROPS OU Q6H PRN for REDNESS/IRRITATION, (Reported) Patient Home Medication List Home Medication List Reviewed: Yes Review of Systems Review of Systems Constitutional: see HPI EENTM: see HPI Respiratory: no symptoms reported Cardiovascular: no symptoms reported Genitourinary: no symptoms reported (No) Musculoskeletal: no symptoms reported Skin: no symptoms reported Psychiatric/Neurological: No Symptoms Reported Hematologic/Lymphatic: No Symptoms Reported Past Nxudaph-Azxxdv-Rcssbw Hx Immunizations Up To Date Tetanus Booster (TDap): More than 5yrs PED Vaccines UTD: No Past Medical History Surgeries: Yes Respiratory: No Cardiac: No Neurological: Yes (Chronic neurologic deficits with right-sided paralysis.) Seizure Disorder Reproductive Disorders: No Bladder Infection Gastrointestinal: Yes Diverticulosis Musculoskeletal: Yes Fractures Endocrine: No Tonsilitis Cancer: No Psychosocial: Yes Anxiety 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 0.0oz. 90.376865ka; 35.10 BMI Method:Estimated General Appearance: No Apparent Distress, WD/WN, Other (Developmentally delayed, informs me that she wants to stay here and watch TV.) Eyes: Bilateral Eye Normal Inspection, Bilateral Eye PERRL HEENT: PERRL/EOMI, TMs Normal Respiratory: No Accessory Muscle Use, No Respiratory Distress Cardiovascular: Regular Rate, Rhythm, Normal Peripheral Pulses Gastrointestinal: Non Tender, Soft Extremity: Normal Capillary Refill, Normal Inspection Neurologic/Psychiatric: Alert Skin: Normal Color, Warm/Dry, Other (Abrasion to the midline upper back and right scapula. 99% on room air heart rate 80 blood pressure 123/84) Progress/Results/Core Measures Suspected Sepsis SIRS Temperature: Pulse: Respiratory Rate: Laboratory Tests 06/22/21 17:47: White Blood Count 4.9 Blood Pressure / Mean: Laboratory Tests 06/22/21 17:47: Platelet Count 139 Results/Orders Lab Results Laboratory Tests Test 06/22/21 17:47 Range/Units White Blood Count 4.9 4.3-11.0 10^3/uL Red Blood Count 4.54 3.80-5.11 10^6/uL Hemoglobin 15.4 11.5-16.0 g/dL Hematocrit 46 35-52 % Mean Corpuscular Volume 102 H 80-99 fL Mean Corpuscular Hemoglobin 34 25-34 pg Mean Corpuscular Hemoglobin Concent 33 32-36 g/dL Red Cell Distribution Width 13.3 10.0-14.5 % Platelet Count 139 130-400 10^3/uL Mean Platelet Volume 9.2 9.0-12.2 fL Immature Granulocyte % (Auto) 0 % Neutrophils (%) (Auto) 58 42-75 % Lymphocytes (%) (Auto) 29 12-44 % Monocytes (%) (Auto) 11 0-12 % Eosinophils (%) (Auto) 1 0-10 % Basophils (%) (Auto) 0 0-10 % Neutrophils # (Auto) 2.8 1.8-7.8 10^3/uL Lymphocytes # (Auto) 1.4 1.0-4.0 10^3/uL Monocytes # (Auto) 0.5 0.0-1.0 10^3/uL Eosinophils # (Auto) 0.1 0.0-0.3 10^3/uL Basophils # (Auto) 0.0 0.0-0.1 10^3/uL Immature Granulocyte # (Auto) 0.0 0.0-0.1 10^3/uL My Orders Orders - CULLEN LEE APRN Cbc With Automated Diff (06/22/21 17:13) Vital Signs/I&O 06/22/21 17:07 Temp 35.7 Pulse 81 Resp 16 B/P (MAP) 133/84 (100) Pulse Ox 99 O2 Delivery Room Air Capillary Refill : Departure Impression Primary Impression: Intellectual disability Additional Impression: General medical exam Disposition: HOME, SELF-CARE Condition: Stable Departure-Patient Inst. Decision time for Depature: 17:16 Referrals: DIANA CHEUNG DO (PCP/Family) Primary Care Physician Patient Instructions: NO INSTRUCTIONS GIVEN CULLEN LEE APRN Jun 22, 2021 17:16
[2021-06-22 17:52] LABS: BASOPHILS % (AUTO) 0 % (0-10); EOSINOPHILS # (AUTO) 0.1 10^3/uL (0.0-0.3); EOSINOPHILS % (AUTO) 1 % (0-10); HEMATOCRIT 46 % (35-52); HEMOGLOBIN 15.4 g/dL (11.5-16.0); LYMPHOCYTES # (AUTO) 1.4 10^3/uL (1.0-4.0); LYMPHOCYTES % (AUTO) 29 % (12-44); MEAN CORPUSCULAR HEMOGLOBIN 34 pg (25-34); MEAN CORPUSCULAR HGB CONC 33 g/dL (32-36); MEAN CORPUSCULAR VOLUME 102 fL (80-99); MEAN PLATELET VOLUME 9.2 fL (9.0-12.2); MONOCYTES # (AUTO) 0.5 10^3/uL (0.0-1.0); MONOCYTES % (AUTO) 11 % (0-12); NEUTROPHILS # (AUTO) 2.8 10^3/uL (1.8-7.8); NEUTROPHILS % (AUTO) 58 % (42-75); PLATELET COUNT 139 10^3/uL (130-400); WHITE BLOOD COUNT 4.9 10^3/uL (4.3-11.0)
[2021-06-22 18:55] VITALS: BP 127/86
== END 2021-06-22 18:55 | disposition home or self-care (01) ==
LOC: EDUNIT# 17:07 → ER 17:09
DX: S20.419A Abrasion of unspecified back wall of thorax, initial encounter (principal); S40.211A Abrasion of right shoulder, initial encounter; F79 Unspecified intellectual disabilities; G40.909 Epilepsy, unspecified, not intractable, without status epilepticus; F41.9 Anxiety disorder, unspecified; Z79.899 Other long term (current) drug therapy; X58.XXXA Exposure to other specified factors, initial encounter
CPT/HCPCS: 36415; 85025; 99283

== ENCOUNTER 2021-08-15 08:39 | Inpatient (IN) | payer MEDICAID ==
[~2021-08-15] VITALS: Ht 149 cm; Wt 66.0 kg
[2021-08-15] MEDS ORDERED: LACTATED RINGERS 1,000 ML IV STA (08:43)
[2021-08-15 09:36] LABS: BASOPHILS % (AUTO) 1 % (0-10); EOSINOPHILS % (AUTO) 1 % (0-10); HEMATOCRIT 48 % (35-52); HEMOGLOBIN 15.9 g/dL (11.5-16.0); LYMPHOCYTES # (AUTO) 1.5 10^3/uL (1.0-4.0); LYMPHOCYTES % (AUTO) 27 % (12-44); MEAN CORPUSCULAR HEMOGLOBIN 34 pg (25-34); MEAN CORPUSCULAR HGB CONC 33 g/dL (32-36); MEAN CORPUSCULAR VOLUME 104 fL (80-99); MEAN PLATELET VOLUME 9.9 fL (9.0-12.2); MONOCYTES # (AUTO) 0.6 10^3/uL (0.0-1.0); MONOCYTES % (AUTO) 12 % (0-12); NEUTROPHILS # (AUTO) 3.3 10^3/uL (1.8-7.8); NEUTROPHILS % (AUTO) 60 % (42-75); PLATELET COUNT 177 10^3/uL (130-400); WHITE BLOOD COUNT 5.5 10^3/uL (4.3-11.0)
[2021-08-15 09:41] LABS: ALBUMIN 3.5 GM/DL (3.2-4.5); POTASSIUM 3.7 MMOL/L (3.6-5.0)
[2021-08-15 09:43] LABS: CALCIUM 9.8 MG/DL (8.5-10.1)
[2021-08-15 09:44] LABS: INR 1.2 (0.8-1.4); PROTHROMBIN TIME PATIENT 15.8 SEC (12.2-14.7); TOTAL PROTEIN 9.5 GM/DL (6.4-8.2)
[2021-08-15 09:46] LABS: BILIRUBIN,TOTAL 1.1 MG/DL (0.1-1.0)
[2021-08-15 09:48] LABS: CREATININE SERUM 0.75 MG/DL (0.60-1.30)
[2021-08-15 09:48] LABS: BILIRUBIN,URINE NEGATIVE (NEGATIVE); CLARITY,URINE SL CLOUDY; COLOR,URINE DARK YELLOW; GLUCOSE, URINE (UA) NEGATIVE (NEGATIVE); KETONES,URINE NEGATIVE (NEGATIVE); LEUKOCYTE ESTERASE ,URINE NEGATIVE (NEGATIVE); NITRITE,URINE NEGATIVE (NEGATIVE); PH,URINE 6.5 (5-9); PROTEIN,URINE NEGATIVE (NEGATIVE)
--- NOTE | 2021-08-15 09:56 | Diagnostic Imaging Report ---
Indication: Altered mental status Portable chest 9:44 AM Heart size and pulmonary vascularity are normal. Lungs are clear. There are no effusions or pneumothoraces. IMPRESSION: Negative chest. Dictated by: Dictated on workstation # [id number]
[2021-08-15 09:57] LABS: BACTERIA,URINE TRACE /HPF; SQUAMOUS EPITHELIAL CELL,UR RARE /HPF; WBC,URINE RARE /HPF
--- NOTE | 2021-08-15 11:04 | ED General ---
General Chief Complaint: Altered Mental Status Stated Complaint: AMS Nursing Triage Note: PT ARRIVES TO ER BY [facility] WITH C/O MORE AMS THAN NORMAL ALSO NOT EATING OR DRINKING ACCORDING TO IRA. PT WAS SUPPOSED TO BE SEEN AT [facility] TODAY FOR A FEEDING TUBE. Source of Information: Caregiver, EMS Exam Limitations: Physical Impairments History of Present Illness Date Seen by Provider: Aug 15, 2021 Time Seen by Provider: 08:38 Initial Comments Here with report of altered mental status and patient is not eating or drinking. She usually will. She lives in a [place] home. She is supposed to be seen in [place] at [facility] for feeding tube placement although she is too obtunded. Her primary care doctor, Dr. Cheung was called and he recommended sending her here for evaluation. This was done. Arrives not speaking but eyes open. In no respiratory distress. Does look quite obtunded. She does have underlying significant Does have history of frequent urinary tract infections and does smell of strong urine. No report of diarrhea. Has not had much p.o. intake over the last 24 to 48 hours. She did drink some on Wednesday per her caregiver. She has been seen here before for same and usually improves after a few days of fluid. Timing/Duration: 1 Week, Getting Worse Severity: Moderate Associated Systoms: No Fever/Chills, No Nausea/Vomiting; Weakness (Per car egivers) Allergies and Home Medications Allergies Coded Allergies: No Known Drug Allergies (Unverified , 02/10/13) Patient Home Medication List Home Medication List Reviewed: Yes Acetaminophen (Tylenol) 325 Mg Capsule, 650 MG PO Q6H PRN for PAIN-MILD (1-4), (Reported) Entered as Reported by: CARMEN CARSON on 06/17/21 162 Calcium Carbonate (Calcium) 500 Mg Tab.chew, 1,000 MG PO Q4H PRN for HEARTBURN, (Reported) Entered as Reported by: CARMEN CARSON on 06/17/21 162 Cephalexin (Cephalexin) 500 Mg Tablet, 500 MG PO BID Prescribed by: MJ SANTANA on 06/19/21 1308 Clonazepam (Clonazepam) 1 Mg Tablet, 1 MG PO HS, (Reported) Entered as Reported by: CARMEN CARSON on 06/17/21 162 Clotrimazole/Betamethasone Dip (Clotrimazole-Betamethasone Crm) 15 Gm Cream..g., 1 APPLIC TP Q8H PRN for RASH, (Reported) Entered as Reported by: CARMEN CARSON on 06/17/211626 Diphenhydramine HCl (Benadryl Allergy) 25 Mg Tablet, 25-50 MG PO Q6H PRN for ALLERGIC REACTIONS, (Reported) Entered as Reported by: CARMEN CARSON on 06/17/211626 Famotidine (Famotidine) 20 Mg Tablet, 20 MG PO BID, (Reported) Entered as Reported by: CARMEN CARSON on 06/17/211626 Guaifenesin/Dextromethorphan (Guaifenesin-Dm 100-10 mg/5 ml) 5 Ml Liquid, 10 ML PO Q6H PRN for COUGH, (Reported) Entered as Reported by: CARMEN CARSON on 06/17/211626 Hydrocortisone Acetate (Hydrocortisone) 28 Gm Oint...g., 1 APPLIC TP Q8H PRN for RASH, (Reported) Entered as Reported by: CARMEN CARSON on 06/17/211626 Lacosamide (Vimpat) 200 Mg Tablet, 200 MG PO BID, (Reported) Entered as Reported by: CARMEN CARSON on 06/17/211626 Lamotrigine (Lamotrigine) 200 Mg Tablet, 200 MG PO QID, (Reported) Entered as Reported by: CARMEN CARSON on 06/17/211626 Loperamide HCl (Imodium A-D) 2 Mg Capsule, 2-4 MG PO UD PRN for DIARRHEA, (Reported) Entered as Reported by: CARMEN CARSON on 06/17/211626 Magnesium Hydroxide (Milk of Magnesia) 400 Mg/5 Ml Oral.susp, 30 ML PO Q12H PRN for CONSTIPATION-7TH LINE, (Reported) Entered as Reported by: CARMEN CARSON on 06/17/211626 Menthol (Cough Drops) 5.4 Mg Lozenge, 5.4 MG MM Q1H PRN for COUGH, (Reported) Entered as Reported by: CARMEN CARSON 06/17/211626 Menthol/Lanolin/Calamine/Znox (Calmoseptine Ointment) 71 Gm Oint, 1 APPLIC TP BID, (Reported) Entered as Reported by: CARMEN CARSON on 06/17/211626 Multivitamins,Therapeutic (Thera-Tabs) 1 Each Tablet, 1 EACH PO DAILY, (Reported) Entered as Reported by: CARMEN CARSON on 06/17/211626 Neomycin Chapman/Bacitrac Zn/Poly (Neosporin Ointment) 28.3 Gm Oint...g., 1 APPLIC TP Q12H PRN for MINOR CUTS AND ABRASIONS, (Reported) Entered as Reported by: CARMEN CARSON on 06/17/211626 Nystatin (Nystatin) 1 Each Powder.ea., 1 EACH TOP BID, (Reported) Entered as Reported by: CARMEN CARSON on 06/17/211626 Peg 400/Hypromellose/Glycerin (Visine Tears Drops) 15 Ml Drops, 2 DROPS OU Q6H PRN for REDNESS/IRRITATION, (Reported) Entered as Reported by: CARMEN CARSON on 06/17/211626 Review of Systems Review of Systems Constitutional: see HPI; No chills, No fever Gastrointestinal: loss of appetite; No nausea, No vomiting Genitourinary: decreased output Unable to complete review of systems due to altered mental status Past Jbiuurr-Pfvddb-Lipxsz Hx Patient Social History Tobacco Use?: No Substance use?: No Alcohol Use?: No Pt feels they are or have been: No Immunizations Up To Date Tetanus Booster (TDap): More than 5yrs PED Vaccines UTD: No Past Medical History Surgeries: Yes Respiratory: No Cardiac: No Neurological: Yes (Chronic neurologic deficits with right-sided paralysis.) Seizure Disorder Reproductive Disorders: No Bladder Infection Gastrointestinal: Yes Diverticulosis Musculoskeletal: Yes Fractures Endocrine: No Tonsilitis Cancer: No Psychosocial: Yes Anxiety 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 0.0oz. 90.231555mh; 24.00 BMI Method:Estimated General Appearance: Other (Ill-appearing, eyes open spontaneously and breathing on own but not really answering questions) HEENT: PERRL/EOMI, Other (Dry mucous membranes) Neck: Non Tender, Supple Respiratory: Lungs Clear, Normal Breath Sounds Cardiovascular: No Murmur, Tachycardia Gastrointestinal: Non Tender, Soft Back: No CVA Tenderness, Decreased Range of Motion Extremity: No Pedal Edema, Other (Lower extremities cachectic without edema) Neurologic/Psychiatric: Other (Eyes open. She did open mouth when asked but otherwise is not talking and not really following commands. She does appear quite dry and ill-appearing.) Skin: normal color, warm/dry Focused Exam Lactate Level 08/15/21 09:25: Lactic Acid Level 1.93 Lactic Acid Level Laboratory Tests Test 08/15/21 09:25 Lactic Acid Level 1.93 MMOL/L (0.50-2.00) Progress/Results/Core Measures Suspected Sepsis SIRS Temperature: Pulse: 93 Respiratory Rate: 18 Laboratory Tests 08/15/21 09:25: White Blood Count 5.5 Blood Pressure 107 /80 Mean: 89 08/15/21 09:25: Lactic Acid Level 1.93 Laboratory Tests 08/15/21 09:25: Creatinine 0.75, INR Comment 1.2, Platelet Count 177, Total Bilirubin 1.1H Results/Orders Lab Results Laboratory Tests Test 08/15/21 09:25 08/15/21 09:40 Range/Units White Blood Count 5.5 4.3-11.0 10^3/uL Red Blood Count 4.62 3.80-5.11 10^6/uL Hemoglobin 15.9 11.5-16.0 g/dL Hematocrit 48 35-52 % Mean Corpuscular Volume 104 H 80-99 fL Mean Corpuscular Hemoglobin 34 25-34 pg Mean Corpuscular Hemoglobin Concent 33 32-36 g/dL Red Cell Distribution Width 13.6 10.0-14.5 % Platelet Count 177 130-400 10^3/uL Mean Platelet Volume 9.9 9.0-12.2 fL Immature Granulocyte % (Auto) 0 % Neutrophils (%) (Auto) 60 42-75 % Lymphocytes (%) (Auto) 27 12-44 % Monocytes (%) (Auto) 12 0-12 % Eosinophils (%) (Auto) 1 0-10 % Basophils (%) (Auto) 1 0-10 % Neutrophils # (Auto) 3.3 1.8-7.8 10^3/uL Lymphocytes # (Auto) 1.5 1.0-4.0 10^3/uL Monocytes # (Auto) 0.6 0.0-1.0 10^3/uL Eosinophils # (Auto) 0.0 0.0-0.3 10^3/uL Basophils # (Auto) 0.0 0.0-0.1 10^3/uL Immature Granulocyte # (Auto) 0.0 0.0-0.1 10^3/uL Prothrombin Time 15.8 H 12.2-14.7 SEC INR Comment 1.2 0.8-1.4 Activated Partial Thromboplast Time 31 24-35 SEC Sodium Level 147 H 135-145 MMOL/L Potassium Level 3.7 3.6-5.0 MMOL/L Chloride Level 108 H 98-107 MMOL/L Carbon Dioxide Level 27 21-32 MMOL/L Anion Gap 12 5-14 MMOL/L Blood Urea Nitrogen 22 H 7-18 MG/DL Creatinine 0.75 0.60-1.30 MG/DL Estimat Glomerular Filtration Rate 83 BUN/Creatinine Ratio 29 Glucose Level 109 H 70-105 MG/DL Lactic Acid Level 1.93 0.50-2.00 MMOL/L Calcium Level 9.8 8.5-10.1 MG/DL Corrected Calcium 10.2 H 8.5-10.1 MG/DL Total Bilirubin 1.1 H 0.1-1.0 MG/DL Aspartate Amino Transf (AST/SGOT) 66 H 5-34 U/L Alanine Aminotransferase (ALT/SGPT) 33 0-55 U/L Alkaline Phosphatase 115 40-136 U/L C-Reactive Protein High Sensitivity 1.31 H 0.00-0.50 MG/DL Total Protein 9.5 H 6.4-8.2 GM/DL Albumin 3.5 3.2-4.5 GM/DL Procalcitonin 0.20 H <0.10 NG/ML Urine Color DARK YELLOW Urine Clarity SL CLOUDY Urine pH 6.5 5-9 Urine Specific [place] 1.020 1.016-1.022 Urine Protein NEGATIVE NEGATIVE Urine Glucose (UA) NEGATIVE NEGATIVE Urine Ketones NEGATIVE NEGATIVE Urine Nitrite NEGATIVE NEGATIVE Urine Bilirubin NEGATIVE NEGATIVE Urine Urobilinogen 4.0 < = 1.0 MG/DL Urine Leukocyte Esterase NEGATIVE NEGATIVE Urine RBC (Auto) NEGATIVE NEGATIVE Urine RBC NONE /HPF Urine WBC RARE /HPF Urine Squamous Epithelial Cells RARE /HPF Urine Crystals NONE /LPF Urine Bacteria TRACE /HPF Urine Casts NONE /LPF Urine Mucus SMALL H /LPF Urine Culture Indicated CULTURE PENDING My Orders Orders - NAYANA FAULKNER MD Cbc With Automated Diff (08/15/21 08:43) Comprehensive Metabolic Panel (08/15/21 08:43) Blood Culture (08/15/21 08:43) Sputum Culture (08/15/21 08:43) Urinalysis (08/15/21 08:43) Urine Culture (08/15/21 08:43) Protime With Inr (08/15/21 08:43) Partial Thromboplastin Time (08/15/21 08:43) Chest 1 View, Ap/Pa Only (08/15/21 08:43) Ed Iv/Invasive Line Start (08/15/21 08:43) Vital Signs Adult Sepsis Patie Q15M (08/15/21 08:43) O2 (08/15/21 08:43) Remove Rings In Anticipation O (08/15/21 08:43) Lactic Acid Analyzer (08/15/21 08:43) Hs C Reactive Protein (08/15/21 08:43) Procalcitonin (Pct) (08/15/21 08:43) Lactated Ringers (Lr 1000 Ml Iv Solution (08/15/21 08:43) Straight Cath For Spec.-Adult (08/15/21 08:45) Vital Signs/I&O 08/15/21 08:39 Temp 36.3 Pulse 93 Resp 18 B/P (MAP) 107/80 (89) Pulse Ox 97 O2 Delivery Room Air Capillary Refill : Less Than 3 Seconds Blood Pressure Mean: 89 Progress Note : Progress Note Seen and evaluated. IV, labs, blood cultures and lactic acid ordered. LR 1 L bolus ordered. Monitor patient. 1110: Patient doing a little bit better but still appears dry and ill-appearing although this appears to be occurring over time. Care worker here now and reports 40 pound weight loss over the last several weeks to months. Apparently the care team and guardians are on board with feeding tube placement if this is possible but they just have not been able to get her to the location to do that. Consider admission here for continued hydration and surgical consult. I have paged the hospitalist team and am awaiting callback. Monitor patient. 0125: I did discuss the case with Dr. Santana and she accepts patient for admission, inpatient status. She will consult surgery for potential for feeding tube placement. Care team notified. Agrees with plan. Diagnostic Imaging Diagonstic Imaging: Xray Plain Films/CT/US/NM/MRI: chest Comments [facility] [place] NAME: RADHAMES DIAZ [facility] REC#: [id number] PT STATUS: REG ER : 1975 PHYSICIAN: NAYANA FAULKNER MD ADMIT DATE: 08/15/21/ER Signed Date of Exam:08/15/21 CHEST 1 VIEW, AP/PA ONLY Indication: Altered mental status Portable chest 9:44 AM Heart size and pulmonary vascularity are normal. Lungs are clear. There are no effusions or pneumothoraces. IMPRESSION: Negative chest. Dictated by: Dictated on workstation # [id number] Dict: 08/15/21 0953 Trans: 08/15/21 1016 [facility] [id number] Interpreted by: NAYANA AGUIAR MD Electronically signed by: NAYANA AGUIAR MD 08/15/21 1016 Departure Communication (Admissions) Time/Spoke to Admitting Phy: 11:25 Impression Primary Impression: Dehydration Additional Impressions: Failure to thrive in adult Generalized weakness Disposition: ADMITTED INPATIENT Condition: Stable Admissions Decision to Admit Reason: Admit from ER (General) Decision to Admit/Date: Aug 15, 2021 Time/Decision to Admit Time: 11:25 Departure-Patient Inst. Referrals: DIANA CHEUNG DO (PCP/Family) Primary Care Physician NAYANA FAULKNER MD Aug 15, 2021 11:04
[2021-08-15 12:54] VITALS: BP 121/64
[2021-08-15] MEDS ORDERED: CATHETER FLUSH 10 ML SYR IV PRN (13:15)
[2021-08-15] MEDS ORDERED: ONDANSETRON 4 MG/2 ML (SDV) Z0FRAN IV PRN (13:15)
[2021-08-15] MEDS: LACTATED RINGERS 1,000 ML IV SCH ×2 (13:37→17:54)
--- NOTE | 2021-08-15 14:14 | Consultation - Surgery ---
PHILLIP PEÑALOZA 08/15/21 1414: History of Present Illness History of Present Illness Patient Consulted On(modesta/time) 08/15/21 14:09 Time Seen by Provider: 13:30 History of Present Illness 45 yo F present with altered mental status and has been NPO for 5 days. Was unable to communicate with the patient due to her current state. She is very weak, but is able to nod her head and answer yes or no questions to a certain extent. Unable to obtain ROS, FH, PSH, PMH from the patient. Allergies and Home Medications Allergies Coded Allergies: No Known Drug Allergies (Unverified , 08/15/21) Patient Home Medication List Acetaminophen (Tylenol) 325 Mg Capsule, 650 MG PO Q6H PRN for PAIN-MILD (1-4), (Reported) Entered as Reported by: CARMEN CARSON on 06/17/211626 Last Action: Reviewed Calcium Carbonate (Calcium) 500 Mg Tab.chew, 1,000 MG PO Q4H PRN for HEARTBURN, (Reported) Entered as Reported by: CARMEN CARSON on 06/17/211626 Last Action: Reviewed Clonazepam (Clonazepam) 1 Mg Tablet, 1 MG PO HS, (Reported) Entered as Reported by: CARMEN CARSON on 06/17/211626 Last Action: Reviewed Clonazepam (Clonazepam) 0.5 Mg Tablet, 0.5 MG PO 0800,1200, (Reported) Entered as Reported by: CARMEN CARSON on 08/15/211416 Last Action: Reviewed Clotrimazole/Betamethasone Dip (Clotrimazole-Betamethasone Crm) 15 Gm Cream..g., 1 APPLIC TP Q8H PRN for RASH, (Reported) Entered as Reported by: CARMEN CARSON on 06/17/211626 Last Action: Reviewed Diphenhydramine HCl (Benadryl Allergy) 25 Mg Tablet, 25-50 MG PO Q6H PRN for ALLERGIC REACTIONS, (Reported) Entered as Reported by: CARMEN CARSON on 06/17/211626 Last Action: Reviewed Famotidine (Famotidine) 20 Mg Tablet, 20 MG PO BID, (Reported) Entered as Reported by: CARMEN CARSON on 06/17/211626 Last Action: Reviewed Furosemide (Furosemide) 40 Mg Tablet, 40 MG PO DAILY, (Reported) Entered as Reported by: CARMEN CARSON on 08/15/211416 Last Action: Reviewed Guaifenesin/Dextromethorphan (Guaifenesin-Dm 100-10 mg/5 ml) 5 Ml Liquid, 10 ML PO Q6H PRN for COUGH, (Reported) Entered as Reported by: CARMEN CARSNO on 06/17/211626 Last Action: Reviewed Hydrocortisone Acetate (Hydrocortisone) 28 Gm Oint...g., 1 APPLIC TP Q8H PRN for RASH, (Reported) Entered as Reported by: CARMEN CARSON on 06/17/211626 Last Action: Reviewed Lacosamide (Vimpat) 200 Mg Tablet, 200 MG PO BID, (Reported) Entered as Reported by: CARMEN CARSON on 06/17/211626 Last Action: Reviewed Lamotrigine (Lamotrigine) 200 Mg Tablet, 200 MG PO QID, (Reported) Entered as Reported by: CARMEN CARSON on 06/17/211626 Last Action: Reviewed Loperamide HCl (Imodium A-D) 2 Mg Capsule, 2-4 MG PO UD PRN for DIARRHEA, (Reported) Entered as Reported by: CARMEN CARSON on 06/17/211626 Last Action: Reviewed Magnesium Hydroxide (Milk of Magnesia) 400 Mg/5 Ml Oral.susp, 30 ML PO Q12H PRN for CONSTIPATION-7TH LINE, (Reported) Entered as Reported by: CARMEN CARSON on 06/17/211626 Last Action: Reviewed Menthol (Cough Drops) 5.4 Mg Lozenge, 5.4 MG MM Q1H PRN for COUGH, (Reported) Entered as Reported by: CARMEN CARSON on 06/17/211626 Last Action: Reviewed Menthol/Lanolin/Calamine/Znox (Calmoseptine Ointment) 71 Gm Oint, 1 APPLIC TP BID, (Reported) Entered as Reported by: CARMEN CARSON on 06/17/211626 Last Action: Reviewed Multivitamins,Therapeutic (Thera-Tabs) 1 Each Tablet, 1 EACH PO DAILY, (Report ed) Entered as Reported by: CARMEN CARSON on 06/17/211626 Last Action: Reviewed Neomycin Chapman/Bacitrac Zn/Poly (Neosporin Ointment) 28.3 Gm Oint...g., 1 APPLIC TP Q12H PRN for MINOR CUTS AND ABRASIONS, (Reported) Entered as Reported by: CARMEN CARSON on 06/17/211626 Last Action: Reviewed Nystatin (Nystatin) 1 Each Powder.ea., 1 EACH TOP BID, (Reported) Entered as Reported by: CARMEN CARSON on 06/17/211626 Last Action: Reviewed Tetrahydrozoline HCl (Tetrahydrozoline HCl) 15 Ml Drops, 2 DROPS OU Q6H PRN for REDNESS/IRRITATION, (Reported) Entered as Reported by: CARMEN CARSON on 08/15/21 1417 Last Action: Reviewed Discontinued Medications Cephalexin (Cephalexin) 500 Mg Tablet, 500 MG PO BID Discontinued Reason: No Longer Taking Prescribed by: MJ SANTANA on 06/19/21 1308 Last Action: Discontinued Peg 400/Hypromellose/Glycerin (Visine Tears Drops) 15 Ml Drops, 2 DROPS OU Q6H PRN for REDNESS/IRRITATION, (Reported) Discontinued Reason: Prescription changed Entered as Reported by: CARMEN CARSON on 06/17/211626 Past Erdpxzt-Ojrjwj-Ksvxem Hx Patient Social History Recent Hopitalizations: No Alcohol Use?: No Have you traveled recently?: No Immunizations Up To Date Tetanus Booster (TDap): More than 5yrs PED Vaccines UTD: No Surgeries History of Surgeries: Yes Respiratory History of Respiratory Disorde: No Cardiovascular History of Cardiac Disorders: No Neurological History of Neurological Disord: Yes (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.) Neurological Disorders: Seizure Disorder Reproductive System Hx Reproductive Disorders: No Genitourinary Genitourinary Disorders: Bladder Infection Gastrointestinal History of Gastrointestinal Di: Yes Gastrointestinal Disorders: Diverticulosis Musculoskeletal History of Musculoskeletal Dis: Yes Musculoskeletal Disorders: Fractures Endocrine History of Endocrine Disorders: No HEENT HEENT Disorders: Tonsilitis Cancer History of Cancer: No Psychosocial History of Psychiatric Problem: Yes Behavioral Health Disorders: Anxiety Integumentary History of Skin or Integumenta: No (ULCER BEHIND R LEG) Skin/Integumentary Disorders: Recent Skin Changes Blood Transfusions History of Blood Disorders: No Adverse Reaction to a Blood Tr: No Family Medical History Significant Family History: No Pertinent Family Hx Family Medial History: Alcoholism 19 MOTHER (mother , addicted to illegal drugs) Review of Systems-General Constitutional: other (unable to partipate in ROS) Physical Exam-General Problems Physical Exam Vital Signs Vital Signs - First Documented 08/15/21 08:39 Temp 36.3 Pulse 93 Resp 18 B/P (MAP) 107/80 (89) Pulse Ox 97 O2 Delivery Room Air Capillary Refill : Less Than 3 Seconds General Appearance: mild distress, other (weak, altered mental status.) Neck: non-tender, supple Respiratory: normal breath sounds, no respiratory distress, no accessory muscle use Cardiovascular: regular rate, rhythm, no edema Gastrointestinal: normal bowel sounds, soft Rectal: deferred Extremities: no pedal edema, other (right shoulder pain. stage 2 pressure ulcer on L sacral base and at coccyx, stage 2 pressure ulcer on right lateral thigh ) Neurologic/Psychiatric: other (disoriented, but nurse has noticed some improvement in function. ) Lymphatic: no adenopathy Data Review Labs Laboratory Tests 08/15/21 09:25: White Blood Count 5.5, Red Blood Count 4.62, Hemoglobin 15.9, Hematocrit 48, Mean Corpuscular Volume 104H, Mean Corpuscular Hemoglobin 34, Mean Corpuscular Hemoglobin Concent 33, Red Cell Distribution Width 13.6, Platelet Count 177, Mean Platelet Volume 9.9, Immature Granulocyte % (Auto) 0, Neutrophils (%) (Auto) 60, Lymphocytes (%) (Auto) 27, Monocytes (%) (Auto) 12, Eosinophils (%) (Auto) 1, Basophils (%) (Auto) 1, Neutrophils # (Auto) 3.3, Lymphocytes # (Auto) 1.5, Monocytes # (Auto) 0.6, Eosinophils # (Auto) 0.0, Basophils # (Auto) 0.0, Immature Granulocyte # (Auto) 0.0, Prothrombin Time 15.8H, INR Comment 1.2, Activated Partial Thromboplast Time 31, Sodium Level 147H, Potassium Level 3.7, Chloride Level 108H, Carbon Dioxide Level 27, Anion Gap 12, Blood Urea Nitrogen 22H, Creatinine 0.75, Estimat Glomerular Filtration Rate 83, BUN/Creatinine Ratio 29, Glucose Level 109H, Lactic Acid Level 1.93, Calcium Level 9.8, Corrected Calcium 10.2H, Total Bilirubin 1.1H, Aspartate Amino Transf (AST/SGOT) 66H, Alanine Aminotransferase (ALT/SGPT) 33, Alkaline Phosphatase 115, C- Reactive Protein High Sensitivity 1.31H, Total Protein 9.5H, Albumin 3.5, Procalcitonin 0.20H 08/15/21 09:40: Urine Color DARK YELLOW, Urine Clarity SL CLOUDY, Urine pH 6.5, Urine Specific [place] 1.020, Urine Protein NEGATIVE, Urine Glucose (UA) NEGATIVE, Urine K etones NEGATIVE, Urine Nitrite NEGATIVE, Urine Bilirubin NEGATIVE, Urine Urobilinogen 4.0, Urine Leukocyte Esterase NEGATIVE, Urine RBC (Auto) NEGATIVE, Urine RBC NONE, Urine WBC RARE, Urine Squamous Epithelial Cells RARE, Urine Crystals NONE, Urine Bacteria TRACE, Urine Casts NONE, Urine Mucus SMALLH, Urine Culture Indicated CULTURE PENDING Assessment/Plan Assessment/Plan Assessment/Plan Dehydration: Administered lactate ringers and NaK fluids, get pt to increase nutrition orally Poor nutrition/Failure to thrive: Has been NPO for 5 days, has been trying to contact family to get consent for PEG tube UTI: UA and urine cultures are pending, treatment with antibiotics when cultures return AMILCAR DELEON DO 08/15/21 1536: History of Present Illness History of Present Illness Date Seen by Provider: Aug 15, 2021 History of Present Illness Consult for peg tube placement by Dr. Santana. Patient is a 45 year old female with developmental delays. Patient not able to provide any information at this time. Reported to have poor oral intake with continued decline in overall nutritional state. Patient weak. Has skin breake down on right hip and left buttock. Allergies and Home Medications Allergies Coded Allergies: No Known Drug Allergies (Unverified , 08/15/21) Patient Home Medication List Home Medication List Reviewed: Yes Acetaminophen (Tylenol) 325 Mg Capsule, 650 MG PO Q6H PRN for PAIN-MILD (1-4), (Reported) Entered as Reported by: CARMEN CARSON on 06/17/211626 Last Action: Reviewed Calcium Carbonate (Calcium) 500 Mg Tab.chew, 1,000 MG PO Q4H PRN for HEARTBURN, (Reported) Entered as Reported by: CARMEN CARSON on 06/17/211626 Last Action: Reviewed Clonazepam (Clonazepam) 1 Mg Tablet, 1 MG PO HS, (Reported) Entered as Reported by: CARMEN CARSON on 06/17/211626 Last Action: Reviewed Clonazepam (Clonazepam) 0.5 Mg Tablet, 0.5 MG PO 0800,1200, (Reported) Entered as Reported by: CARMEN CARSON on 08/15/211416 Last Action: Reviewed Clotrimazole/Betamethasone Dip (Clotrimazole-Betamethasone Crm) 15 Gm Cream..g., 1 APPLIC TP Q8H PRN for RASH, (Reported) Entered as Reported by: CARMEN CARSON on 06/17/211626 Last Action: Reviewed Diphenhydramine HCl (Benadryl Allergy) 25 Mg Tablet, 25-50 MG PO Q6H PRN for ALLERGIC REACTIONS, (Reported) Entered as Reported by: CARMEN CARSON on 06/17/211626 Last Action: Reviewed Famotidine (Famotidine) 20 Mg Tablet, 20 MG PO BID, (Reported) Entered as Reported by: CARMEN CARSON on 06/17/211626 Last Action: Reviewed Furosemide (Furosemide) 40 Mg Tablet, 40 MG PO DAILY, (Reported) Entered as Reported by: CARMEN CARSON on 08/15/211416 Last Action: Reviewed Guaifenesin/Dextromethorphan (Guaifenesin-Dm 100-10 mg/5 ml) 5 Ml Liquid, 10 ML PO Q6H PRN for COUGH, (Reported) Entered as Reported by: CARMEN CARSON on 06/17/211626 Last Action: Reviewed Hydrocortisone Acetate (Hydrocortisone) 28 Gm Oint...g., 1 APPLIC TP Q8H PRN for RASH, (Reported) Entered as Reported by: CARMEN CARSON on 06/17/211626 Last Action: Reviewed Lacosamide (Vimpat) 200 Mg Tablet, 200 MG PO BID, (Reported) Entered as Reported by: CARMEN CARSON on 06/17/211626 Last Action: Reviewed Lamotrigine (Lamotrigine) 200 Mg Tablet, 200 MG PO QID, (Reported) Entered as Reported by: CARMEN CARSON on 06/17/211626 Last Action: Reviewed Loperamide HCl (Imodium A-D) 2 Mg Capsule, 2-4 MG PO UD PRN for DIARRHEA, (Reported) Entered as Reported by: CARMEN CARSON on 06/17/211626 Last Action: Reviewed Magnesium Hydroxide (Milk of Magnesia) 400 Mg/5 Ml Oral.susp, 30 ML PO Q12H PRN for CONSTIPATION-7TH LINE, (Reported) Entered as Reported by: CARMEN CARSON on 06/17/211626 Last Action: Reviewed Menthol (Cough Drops) 5.4 Mg Lozenge, 5.4 MG MM Q1H PRN for COUGH, (Reported) Entered as Reported by: CARMEN CARSON on 06/17/211626 Last Action: Reviewed Menthol/Lanolin/Calamine/Znox (Calmoseptine Ointment) 71 Gm Oint, 1 APPLIC TP BID, (Reported) Entered as Reported by: CARMEN CARSON on 06/17/211626 Last Action: Reviewed Multivitamins,Therapeutic (Thera-Tabs) 1 Each Tablet, 1 EACH PO DAILY, (Reported) Entered as Reported by: CARMEN CARSON on 06/17/211626 Last Action: Reviewed Neomycin Chapman/Bacitrac Zn/Poly (Neosporin Ointment) 28.3 Gm Oint...g., 1 APPLIC TP Q12H PRN for MINOR CUTS AND ABRASIONS, (Reported) Entered as Reported by: CARMEN CARSON on 06/17/211626 Last Action: Reviewed Nystatin (Nystatin) 1 Each Powder.ea., 1 EACH TOP BID, (Reported) Entered as Reported by: CARMEN CARSON on 06/17/211626 Last Action: Reviewed Tetrahydrozoline HCl (Tetrahydrozoline HCl) 15 Ml Drops, 2 DROPS OU Q6H PRN for REDNESS/IRRITATION, (Reported) Entered as Reported by: CARMEN CARSON on 08/15/211416 Last Action: Reviewed Discontinued Medications Cephalexin (Cephalexin) 500 Mg Tablet, 500 MG PO BID Discontinued Reason: No Longer Taking Prescribed by: MJ SANTANA on 06/19/21 1308 Last Action: Discontinued Peg 400/Hypromellose/Glycerin (Visine Tears Drops) 15 Ml Drops, 2 DROPS OU Q6H PRN for REDNESS/IRRITATION, (Reported) Discontinued Reason: Prescription changed Entered as Reported by: CARMEN CARSON on 06/17/211626 Past Otyqezw-Weondq-Nxnqmi Hx Reviewed Nursing Assessment Reviewed/Agree w Nursing PMH: Yes Family Medical History Significant Family History: No Pertinent Family Hx Family Medial History: Alcoholism 19 MOTHER (mother , addicted to illegal drugs) Review of Systems-General ROS-Unable to Obtain: patient unable to provide due to condition. Physical Exam-General Problems Physical Exam General Appearance: no apparent distress, other (weak appearing, does not answer questions. ) HEENT: PERRL/EOMI, other (dry) Neck: non-tender, supple Respiratory: chest non-tender, no respiratory distress, no accessory muscle use Cardiovascular: regular rate, rhythm, no edema Gastrointestinal: non tender, soft Rectal: deferred Back: no CVA tenderness, no vertebral tenderness Extremities: no pedal edema, other (right shoulder pain. stage 2 pressure ulcer on L sacral base and at coccyx, stage 2 pressure ulcer on right lateral thigh ) Neurologic/Psychiatric: alert; No oriented x 3 Skin: normal color, warm/dry, other (break down right thigh left coccyx area) Lymphatic: no adenopathy Assessment/Plan Assessment/Plan Assessment/Plan Dehydration: Administered lactate ringers and NaK fluids, get pt to increase nutrition orally Poor nutrition/Failure to thrive: Has been NPO for 5 days, obtain consent for PEG tube placement UTI: UA and urine cultures are pending, treatment with antibiotics when cultures return Supervisory-Addendum Brief Verification & Attestation Participated in pt care: history, MDM, physical Personally performed: exam, history, MDM, supervision of care Care discussed with: Medical Student Procedures: n/a Results interpretation: Verified all documentation Verification and Attestation of Medical Student E/M Service A medical student performed and documented this service in my presence. I reviewed and verified all information documented by the medical student and made modifications to such information, when appropriate. I personally performed the physical exam and medical decision making. Amilcar Deleon, Aug 15, 2021,15:49 PHILLIP PEÑALOZA Aug 15, 2021 14:14 AMILCAR DELEON DO Aug 15, 2021 15:36
[2021-08-15] MEDS ORDERED: TETR15DR49 OU (14:17)
[2021-08-15] MEDS ORDERED: CLON0.5T4 PO (14:17)
[2021-08-15] MEDS ORDERED: FURO40TA4 PO (14:17)
--- NOTE | 2021-08-15 15:08 | History & Physical-Hospitalist ---
History of Present Illness HPI/Chief Complaint She is a 45-year-old female with a past medical history of intellectual delay, seizure disorder, remote history of a CVA with subsequent right-sided deficits who presented to the emergency department due to altered mental status and lethargy. She does not answer any of my questions. We have called her mixer dry food products and medical case manager but are awaiting a return phone call. All history is obtained from the records. She apparently has not been eating or drinking well and was actually supposed to be seen at [facility] for PEG tube placement today but was brought in by [facility] staff due to her mentation. She was found to be quite dehydrated. I am unsure of the last time she ate. But per ER note it says that it was likely on Wednesday. Source: patient Date Seen 08/15/21 Time Seen by a Provider: 15:03 Attending Physician Mj Santana MD PCP Rickie Santos DO Referring Physician Date of Admission Aug 15, 2021 at 11:48 Home Medications & Allergies Home Medications Reviewed patient Home Medication Reconciliation performed by pharmacy medication reconciliations information technology technician and/or nursing. Patients Allergies have been reviewed. Allergies Allergies Coded Allergies No Known Drug Allergies (Sbscgsyeir54/8/21) Past Rsnlxhu-Kdniph-Qyzdvz Hx Patient Social History Employed/Student: unemployed Tobacco Use?: No Substance use?: No Alcohol Use?: No Pt feels they are or have been: No Immunizations Up To Date Tetanus Booster (TDap): Unknown Hepatitis A: No Hepatitis B: No PED Vaccines UTD: No Current Status status: No Advance Directives: Yes Advance Directive Location: Copy from prev record Communicates: Verbally Primary Language: [place] Preferred Spoken Language: [place] Is interpretation needed?: No Implanted or Applied Medical D: None Past Medical History Seizure Disorder Bladder Infection Diverticulosis Fractures Tonsilitis Anxiety Recent Skin Changes Blood Disorders: No Adverse Reaction/Blood Tranf: No Family Medical History Reviewed Nursing Family Hx Alcoholism 19 MOTHER (mother , addicted to illegal drugs) No Pertinent Family Hx Review of Systems ROS-Unable to Obtain: did not speak Constitutional: see HPI Physical Exam Physical Exam Vital Signs Vital Signs - First Documented 08/15/21 08:39 Temp 36.3 Pulse 93 Resp 18 B/P (MAP) 107/80 (89) Pulse Ox 97 O2 Delivery Room Air Capillary Refill : Less Than 3 Seconds Height, Weight, BMI Height: 4'8.00" Weight: 200lbs. 0.0oz. [id number]; 29.72 BMI Method:Estimated General Appearance: No Apparent Distress, Chronically ill, Obese HEENT: PERRL/EOMI, Other (dry mucous membranes) Neck: Normal Inspection, Supple Respiratory: Lungs Clear, No Respiratory Distress Cardiovascular: Regular Rate, Rhythm, No JVD, No Murmur Gastrointestinal: Normal Bowel Sounds, Non Tender, Soft Extremity: No Calf Tenderness, No Pedal Edema Neurologic/Psychiatric: Alert, Normal Mood/Affect, Other (nonverbal) Results Results/Procedures Labs Laboratory Tests 08/15/21 09:25 Patient resulted labs reviewed. Assessment/Plan Admission Diagnosis Dehydration Failure to thrive Admission Status: Inpatient Order (span 2 midnights) Reason for Inpatient Admission: see below Assessment and Plan Dehydration Failure to thrive Continue IVF Consulted with Dr Mcgee who will evaluate for PEG tube placement Negative UA tax services professional consulted, appreciate recs Intellectual disability Seizure disorder Continue home meds as able after procedure DVT ppx: Lovenox after procedure MJ SANTANA MD Aug 15, 2021 15:08
[2021-08-15] MEDS ORDERED: ACETAMINOPHEN 325 MG TABLET PO PRN (15:15)
[2021-08-15] MEDS ORDERED: LACTATED RINGERS 1,000 ML IV PRN (15:45)
[2021-08-15] MEDS ORDERED: FLU QUADRIvalent (3YOA+) 60 mcg/0.5 ml 2021-22(AFLURIA) IM ONE (16:00)
[2021-08-15] MEDS ORDERED: MIDAZOLAM 2 MG/2 ML (VERSED) VIAL ONE (16:04)
[2021-08-15] MEDS ORDERED: LIDOCAINE 1% INJ 20 ML 20 ML VIAL ONE (16:19)
[2021-08-15] MEDS ORDERED: proPOfol 200 MG/20 ML (DIPRIVAN) VIAL IV ONE (16:28)
--- NOTE | 2021-08-15 16:35 | Progress Note-Post Operative ---
Post-Operative Progess Note Surgeon (s)/Pipelaying Fitter (s) Surgeon DANILO ALVAREZ DO Pipelaying Fitter: none Pre-Operative Diagnosis Gastritis, Abd pain, inability to eat Post-Operative Diagnosis Gastritis Esophagitis Procedure & Operative Findings Date of Procedure 08/15/21 Procedure Performed/Findings EGD with Bx PROCEDURE NOTE: After informed consent was obtained, the patient was brought to the OR suite, placed in bed in left lateral decubitus position. She was administered IV sedation by the AUTOMATIC PINSETTER MECHANIC who then monitored vitals the entire time, heart rate, blood pressure and pulse ox and the scope was inserted down the mouth through the esophagus into the stomach. On the way down, noted some mild esophagitis, took a picture, pushed into the stomach, pushed past the antrum into the duodenum. Duodenum looked good. Pulled back and did a biopsy of antrum, then retroflexed the scope, did not see a hiatal hernia. Did a biopsy of the body of the stomach, then pulled the scope into the GE junction and then did a biopsy of the GE junction. Then monitored as Dr. Mcgee placed needle into stomach and then grasped wire placed in stomach. Pulled wire and scope out, it was attached to the PEG and Dr. Mcgee pulled it back down into stomach. Followed the PEG back into the stomach, took a picture appeared to seat well and twisted easily. Then suctioned all the air out of the stomach. At this point pulled the scope up the esophagus and out the mouth. The patient tolerated the procedure and she was sent to recovery. Anesthesia Type IV Sedation by AUTOMATIC PINSETTER MECHANIC Estimated Blood Loss Estimated blood loss (mL): scant Specimens/Packing Specimens Removed antral bx body of stomach bx GE jxn bx DANILO ALVAREZ DO Aug 15, 2021 16:35
[2021-08-15 16:40] VITALS: BP 116/71
[2021-08-15 16:50] VITALS: BP 122/72
[2021-08-15 17:00] VITALS: BP 130/80
[2021-08-15 17:16] VITALS: BP 129/79
[2021-08-15] MEDS ORDERED: KETOROLAC 15 MG/ML VIAL ONE (19:25)
[2021-08-15 19:29] VITALS: BP 128/99
[2021-08-15] MEDS: KETOROLAC 15 MG/ML VIAL IVP PRN (19:29)
[2021-08-15] MEDS ORDERED: NEO/POLY/BAC (NEOSPORIN) OINT 15 GM TUBE TP PRN (21:00)
[2021-08-15] MEDS ORDERED: BETAMETHASONE/CLOTRIM CREAM (LOTRISONE) 45 GM TP PRN (21:00)
[2021-08-15] MEDS ORDERED: diphenhydrAMINE 25 MG TAB (BENADRYL) PO PRN (21:00)
[2021-08-15] MEDS ORDERED: LORazepam INJ 2 MG/ML (ATIVAN) VIAL IVP PRN (21:00)
[2021-08-15] MEDS ORDERED: LACOSAMIDE 200 MG PO SCH (21:00)
[2021-08-15] MEDS ORDERED: TETRAHYDROZOLINE (VISINE) 0.05% 15 ML BTL OU PRN (21:00)
[2021-08-15] MEDS: MENTHOL/ZINC OXIDE (CALMOSEPTINE) 113 GM TUBE TP SCH (23:07)
[2021-08-15] MEDS: FAMOTIDINE 20 MG (PEPCID) TABLET PO SCH (23:07)
[2021-08-15] MEDS: clonazePAM 1 MG (KlonoPIN) TAB PO SCH (23:07)
[2021-08-16] VITALS: BP 112/74
[2021-08-16] MEDS: KETOROLAC 15 MG/ML VIAL IVP PRN ×2 (02:30→09:03)
[2021-08-16] MEDS: LACTATED RINGERS 1,000 ML IV SCH ×3 (03:45→16:36)
[2021-08-16] MEDS: MULTIVIT W/MINERALS TAB (THERAGRAN M) PO SCH (03:56)
[2021-08-16 04:22] VITALS: BP 106/53
[2021-08-16 06:02] LABS: BASOPHILS % (AUTO) 0 % (0-10); EOSINOPHILS % (AUTO) 0 % (0-10); HEMATOCRIT 38 % (35-52); HEMOGLOBIN 12.5 g/dL (11.5-16.0); LYMPHOCYTES # (AUTO) 1.5 10^3/uL (1.0-4.0); LYMPHOCYTES % (AUTO) 19 % (12-44); MEAN CORPUSCULAR HEMOGLOBIN 34 pg (25-34); MEAN CORPUSCULAR HGB CONC 33 g/dL (32-36); MEAN CORPUSCULAR VOLUME 105 fL (80-99); MEAN PLATELET VOLUME 9.9 fL (9.0-12.2); MONOCYTES # (AUTO) 0.7 10^3/uL (0.0-1.0); MONOCYTES % (AUTO) 8 % (0-12); NEUTROPHILS % (AUTO) 72 % (42-75); PLATELET COUNT 133 10^3/uL (130-400); WHITE BLOOD COUNT 8.3 10^3/uL (4.3-11.0)
[2021-08-16 06:15] LABS: POTASSIUM 3.7 MMOL/L (3.6-5.0)
[2021-08-16 06:17] LABS: CALCIUM 8.6 MG/DL (8.5-10.1)
[2021-08-16 06:21] LABS: CREATININE SERUM 0.63 MG/DL (0.60-1.30)
[2021-08-16 08:03] VITALS: BP 95/61
--- NOTE | 2021-08-16 08:15 | Progress Note - Surgery ---
MCKAYLASAMIAWALKER A MED STUDENT 08/16/21 0815: Subjective Date Seen by a Provider: Aug 16, 2021 Time Seen by a Provider: 07:45 Subjective/Events-last exam Pt lying in bed awake this morning, states her belly hurts. Pt is not able to answer all questions d/t mental status. Focused Exam Lactate Level 08/15/21 09:25: Lactic Acid Level 1.93 Objective Exam Vital Signs Date Time Temp Pulse Resp B/P (MAP) Pulse Ox O2 Delivery O2 Flow Rate FiO2 08/16/21 08:03 37.0 88 16 95/61 (72) 97 Room Air 08/16/21 04:22 37.3 87 18 106/53 (70) 92 Room Air 08/16/21 00:00 37.4 95 18 112/74 (87) 99 Room Air 08/15/21 20:00 Room Air 08/15/21 19:29 36.8 87 20 128/99 (109) 95 Room Air 08/15/21 17:16 36.0 83 16 129/79 (96) 100 Room Air 08/15/21 17:10 Room Air 08/15/21 17:00 36.6 13 130/80 (97) 97 Room Air 08/15/21 16:50 16 122/72 (89) 99 OxyMask 10 08/15/21 16:40 OxyMask 10 08/15/21 16:40 36.2 16 116/71 (86) 100 OxyMask 10 08/15/21 14:52 Room Air 08/15/21 12:54 36.0 87 20 121/64 (83) 99 Room Air 08/15/21 12:28 82 14 112/74 98 Room Air 08/15/21 08:39 36.3 93 18 107/80 (89) 97 Room Air I & O 08/16/21 07:00 Intake Total 1000 ml Output Total 275 ml Balance 725 ml Capillary Refill : Less Than 3 Seconds General Appearance: No Apparent Distress, Chronically ill, Obese HEENT: PERRL/EOMI, Other (dry mucous membranes) Neck: Normal Inspection, Supple Respiratory: Chest Non Tender, Normal Breath Sounds, No Accessory Muscle Use, No Respiratory Distress, Crackles (bilaterally) Cardiovascular: Regular Rate, Rhythm, No JVD, No Murmur Gastrointestinal: normal bowel sounds, non tender, soft, tenderness Extremity: No Calf Tenderness, No Pedal Edema Neurologic/Psychiatric: Alert, Normal Mood/Affect, Other (nonverbal) Skin: Normal Color, Warm/Dry Results Lab Laboratory Tests 08/15/21 09:25: White Blood Count 5.5, Red Blood Count 4.62, Hemoglobin 15.9, Hematocrit 48, Mean Corpuscular Volume 104H, Mean Corpuscular Hemoglobin 34, Mean Corpuscular Hemoglobin Concent 33, Red Cell Distribution Width 13.6, Platelet Count 177, Mean Platelet Volume 9.9, Immature Granulocyte % (Auto) 0, Neutrophils (%) (Auto) 60, Lymphocytes (%) (Auto) 27, Monocytes (%) (Auto) 12, Eosinophils (%) (Auto) 1, Basophils (%) (Auto) 1, Neutrophils # (Auto) 3.3, Lymphocytes # (Auto) 1.5, Monocytes # (Auto) 0.6, Eosinophils # (Auto) 0.0, Basophils # (Auto) 0.0, Immature Granulocyte # (Auto) 0.0, Prothrombin Time 15.8H, INR Comment 1.2, Activated Partial Thromboplast Time 31, Sodium Level 147H, Potassium Level 3.7, Chloride Level 108H, Carbon Dioxide Level 27, Anion Gap 12, Blood Urea Nitrogen 22H, Creatinine 0.75, Estimat Glomerular Filtration Rate 83, BUN/Creatinine Ratio 29, Glucose Level 109H, Lactic Acid Level 1.93, Calcium Level 9.8, Corrected Calcium 10.2H, Total Bilirubin 1.1H, Aspartate Amino Transf (AST/SGOT) 66H, Alanine Aminotransferase (ALT/SGPT) 33, Alkaline Phosphatase 115, C- Reactive Protein High Sensitivity 1.31H, Total Protein 9.5H, Albumin 3.5, Procalcitonin 0.20H 08/15/21 09:40: Urine Color DARK YELLOW, Urine Clarity SL CLOUDY, Urine pH 6.5, Urine Specific [place] 1.020, Urine Protein NEGATIVE, Urine Glucose (UA) NEGATIVE, Urine Ketones NEGATIVE, Urine Nitrite NEGATIVE, Urine Bilirubin NEGATIVE, Urine Urobilinogen 4.0, Urine Leukocyte Esterase NEGATIVE, Urine RBC (Auto) NEGATIVE, Urine RBC NONE, Urine WBC RARE, Urine Squamous Epithelial Cells RARE, Urine Crystals NONE, Urine Bacteria TRACE, Urine Casts NONE, Urine Mucus SMALLH, Urine Culture Indicated CULTURE PENDING 08/15/21 15:35: SARS-CoV-2 RNA (RT-PCR) Not Detected 08/16/21 05:56: White Blood Count 8.3, Red Blood Count 3.63L, Hemoglobin 12.5#, Hematocrit 38, Mean Corpuscular Volume 105H, Mean Corpuscular Hemoglobin 34, Mean Corpuscular Hemoglobin Concent 33, Red Cell Distribution Width 13.7, Platelet Count 133, Mean Platelet Volume 9.9, Immature Granulocyte % (Auto) 1, Neutrophils (%) (Auto) 72, Lymphocytes (%) (Auto) 19, Monocytes (%) (Auto) 8, Eosinophils (%) (Auto) 0, Basophils (%) (Auto) 0, Neutrophils # (Auto) 6.0, Lymphocytes # (Auto) 1.5, Monocytes # (Auto) 0.7, Eosinophils # (Auto) 0.0, Basophils # (Auto) 0.0, Immature Granulocyte # (Auto) 0.1, Sodium Level 149H, Potassium Level 3.7, Chloride Level 111H, Carbon Dioxide Level 28, Anion Gap 10, Blood Urea Nitrogen 19H, Creatinine 0.63, Estimat Glomerular Filtration Rate 102, BUN/Creatinine Ratio 30, Glucose Level 96, Calcium Level 8.6 Microbiology 08/15/21 Urine Culture - Preliminary, Resulted Assessment/Plan Assessment/Plan Admission Diagonsis Failure to thrive Assessment/Plan Failure to thrive with severe dehydration S/p PEG tube placement UTI Failure to thrive with severe dehydration -IV rehydration S/p PEG tube placement -NPO and nothing by PEG for 24 hours post op -Start PEG feedings and oral rehydration tonight when 24 hours is up. UTI -Awaiting cultures and sensitivity AMILCAR MCGEE DO 08/16/21 1159: Subjective Subjective/Events-last exam Patient lying in bed. Has little bit of abdominal pain after gastrostomy tube. Patient more alert and more conversational. Patient with no other complaints at this time. Objective Exam General Appearance: No Apparent Distress, Obese HEENT: PERRL/EOMI, Other (dry mucous membranes) Neck: Normal Inspection, Supple Respiratory: Chest Non Tender, No Accessory Muscle Use, No Respiratory Distress Cardiovascular: Regular Rate, Rhythm, No JVD Gastrointestinal: normal bowel sounds, non tender, soft, tenderness (at gastrostomy site) Extremity: No Calf Tenderness, No Pedal Edema Neurologic/Psychiatric: Alert, Normal Mood/Affect, Other (Mentally delayed) Skin: Normal Color, Warm/Dry Lymphatic: No Adenopathy Assessment/Plan Assessment/Plan Assessment/Plan Failure to thrive with severe dehydration S/p PEG tube placement UTI Failure to thrive with severe dehydration -IV rehydration S/p PEG tube placement -NPO and nothing by PEG for 24 hours post op -Start PEG feedings and oral rehydration tonight when 24 hours is up. UTI Can start using gastrostomy tube today. Will sign off please call if needed. Supervisory-Addendum Brief Verification & Attestation Participated in pt care: history, MDM, physical Personally performed: exam, history, MDM, supervision of care Care discussed with: Medical Student Procedures: n/a Results interpretation: Verified all documentation Verification and Attestation of Medical Student E/M Service A medical student performed and documented this service in my presence. I reviewed and verified all information documented by the medical student and made modifications to such information, when appropriate. I personally performed the physical exam and medical decision making. Amilcar Mcgee, Aug 16, 2021,11:58 WALKER GAONA MED STUDENT Aug 16, 2021 08:15 AMILCAR MCGEE DO Aug 16, 2021 11:59
[2021-08-16] MEDS: clonazePAM 0.5 MG (KlonoPIN) TAB PO SCH ×2 (08:46→12:49)
[2021-08-16] MEDS: FAMOTIDINE 20 MG (PEPCID) TABLET PO SCH ×2 (08:46→21:07)
[2021-08-16] MEDS ORDERED: lamoTRIgine 25 MG (LaMICtal) TAB ONE (08:52)
[2021-08-16] MEDS ORDERED: lamoTRIgine 25 MG (LaMICtal) TAB PO SCH (09:00)
[2021-08-16] MEDS: MENTHOL/ZINC OXIDE (CALMOSEPTINE) 113 GM TUBE TP SCH ×2 (09:03→21:07)
--- NOTE | 2021-08-16 10:13 | Progress Note - Hospitalist ---
Subjective HPI/CC On Admission Date Seen by Provider: Aug 16, 2021 Time Seen by Provider: 10:11 She is a 45-year-old female with a past medical history of intellectual delay, seizure disorder, remote history of a CVA with subsequent right-sided deficits who presented to the emergency department due to altered mental status and lethargy. She does not answer any of my questions. We have called her mechanical equipment test engineer and case operator but are awaiting a return phone call. All history is obtained from the records. She apparently has not been eating or drinking well and was actually supposed to be seen at [facility] for PEG tube p lacement today but was brought in by [place] staff due to her mentation. She was found to be quite dehydrated. I am unsure of the last time she ate. But per ER note it says that it was likely on Wednesday. Subjective/Events-last exam Pt reports pain. Is in the middle of a bed bath. Aide reports she just received pain medicine prior to starting. No other issues. Focused Exam Lactate Level 08/15/21 09:25: Lactic Acid Level 1.93 Objective Exam Vital Signs Vital Signs Date Time Temp Pulse Resp B/P (MAP) Pulse Ox O2 Delivery O2 Flow Rate FiO2 08/16/21 09:03 37.0 08/16/21 08:03 88 16 95/61 (72) 97 Room Air 08/16/21 08:00 10.00 Capillary Refill : Less Than 3 Seconds General Appearance: No Apparent Distress, Chronically ill, Obese Respiratory: Lungs Clear, No Respiratory Distress Cardiovascular: Regular Rate, Rhythm, No Murmur Neurologic/Psychiatric: Alert, Oriented x3 Results/Procedures Lab Laboratory Tests 08/16/21 05:56 Patient resulted labs reviewed. Assessment/Plan Assessment and Plan Assess & Plan/Chief Complaint Dehydration Failure to thrive Continue IVF Consulted with Dr Mcgee POD #1 s/p/ PEG placement Negative UA guest services assistant consulted, appreciate recs Intellectual disability Seizure disorder Continue home meds DVT ppx: Lovenox after procedure MJ LEWIS MD Aug 16, 2021 10:13
[2021-08-16 11:30] VITALS: BP 96/58
--- NOTE | 2021-08-16 13:46 | Physical Therapy Evaluation ---
PT Evaluation-General Medical Diagnosis Admission Date Aug 15, 2021 at 11:48 Medical Diagnosis: sepsis Onset Date: Aug 14, 2021 Therapy Diagnosis Therapy Diagnosis: weakness Height/Weight Height (Feet): 4 Height (Inches): 8.00 Weight (Pounds): 200 Weight (Ounces): 0.0 Precautions Precautions/Isolations: Fall Prevention, Standard Precautions Referral Physician: Nany Reason for Referral: Strengthening Medical History Additional Medical History intellectual delay, seizure disorder, (R) side weakness from past CVA Current History Admitted with decline in mental status and not eating and drinking for several days. Peg tube placement 08/16/21. Social History Home: long term Prior Prior Level of Function SCALE: Activities may be completed with or without assistive devices. 1-Tpdpltboco-zqscjlp completes the activity by him/herself with no assistance from a helper. 5-Set-up or Clean-up Assistance-helper sets up or cleans up; patient completes activity. [place] assists only prior to or following the activity. 4-Supervision or Touching Assistance-helper provides verbal cues and/or touching/steadying and/or contact guard assistance as patient completes activity. Assistance may be provided throughout the activity or intermittently. 3-Partial/Moderate Assistance-helper does LESS THAN HALF the effort. [place] lifts, holds or supports trunk or limbs, but provides less than half the effort. 2-Substantial/Maximal Assistance-helper does MORE THAN HALF the effort. [place] lifts or holds trunk or limbs and provides more than half the effort. 9-Cgbelojxl-ssmqtp does ALL the effort. Patient does none of the effort to complete the activity. Or, the assistance of 2 or more helpers is required for the patient to complete the activity. If activity was not attempted, code reason: 7-Patient Refused. 9-Not Applicable-not attempted and the patient did not perform the activity before the current illness, exacerbation or injury. 10-Not Attempted due to Environmental Limitations-(lack of equipment, weather restraints, etc.). 88-Not Attempted due to Medical Conditions or Safety Concerns. Bed Mobility: 2 Transfers (B,C,W/C): 2 PT Evaluation-Current Subjective Pt is compliant. Objective Patient Orientation: MR ROM/Strength ROM Upper Extremities No active use (R) UE. ROM Lower Extremities Limited active movement. Strength Lower Extremities gross 2/5 throughout Transfers Roll Left to Right (QC): 1 Sit to Lying (QC): 1 Lying to Sitting/Side of Bed(Q: 1 Sit to Stand (QC): 1 Chair/Lgu-wg-Pwkyq Xfer(QC): 1 assist of 2 for all mobility; this is believed to be prior level of mobility Gait Does the Patient Walk?: No and Walking Goal NOT indicated Mode of Locomotion: Wheelchair Balance Sitting Static: Poor Sitting Dynamic: Poor Assessment/Needs Rehab Potential: Poor (There is minimimal chance for functional gains in this patient due to prior level of function.) PT Longterm Goals Manager Philosophy Goals PT Longterm Goals Time Frame: Aug 23, 2021 Roll Left & Right (QC): 2 Sit to Lying (QC): 2 Lying-Sitting on Side/Bed(QC): 2 Sit to Stand (QC): 2 PT Plan Problem List Problem List: Transfer, Bed Mobility Treatment/Plan Treatment Plan: Continue Plan of Care Treatment Duration: Aug 23, 2021 Frequency: 6 times per week Estimated Hrs Per Day: .25 hour per day Safety Risks/Education Patient Education: Transfer Techniques Discharge Recommendations Target Placement long term Time/GCodes Time In: 940 Time Out: 955 Total Billed Treatment Time: 15 Total Billed Treatment visit, eval moderate coplexity 15 min BRIAN OTERO PT Aug 16, 2021 13:46
[2021-08-16 16:00] VITALS: BP 107/57
--- NOTE | 2021-08-16 17:16 | OPERATIVE REPORT ---
DATE OF SERVICE: 08/15/2021 PREOPERATIVE DIAGNOSIS: Dehydration, poor nutrition, failure to thrive. POSTOPERATIVE DIAGNOSIS: Dehydration, poor nutrition, failure to thrive. PROCEDURE: Percutaneous endoscopic gastrostomy tube placement. SURGEON: Amilcar Mcgee DO SALES SOLUTIONS ASSOCIATE: Dr. Braga performed EGD. ANESTHESIA: MAC with local. ESTIMATED BLOOD LOSS: Minimal. COMPLICATIONS: None. INDICATIONS: The patient is a 45-year-old female with dehydration, poor nutrition, failure to thrive, n.p.o. for approximately 5 days. She has a guardian who understands risks and benefits of procedure and consented for procedure. DETAILS OF THE PROCEDURE: The patient was taken to the operating suite. She was placed in the supine position. Timeout was performed. Dr. Braga performed EGD. Once the scope was inserted into the stomach and insufflated, the stomach was ballotable. Local anesthetic was infiltrated. A #11 blade scalpel was used to make a small skin incision in the left upper quadrant. The Angiocath needle was unable to be advanced into the stomach and withdrawn. The patient was slightly repositioned giving better visualization of the stomach, which was a little bit more medial, which local anesthetic was infiltrated. A small skin incision was made and the Angiocath needle was then reinserted. The guidewire was inserted through the Angiocath needle sheath and grasped with a snare by Dr. Braga. The gastrostomy tube was attached to this and the gastrostomy tube was pulled into the stomach extending through that incision. The bolster was advanced through the skin level approximately 5 cm. The gastrostomy tube was cut to length and a sterile bandage was applied. Skin Affix was placed over the incision in the left upper quadrant. The patient tolerated procedure well without any complications. She was taken to recovery room in stable condition. Job ID: [id number] DocumentID: [id number] Dictated Date: 08/16/2021 11:51:58 Financial Advisor Trainee Date: 08/16/2021 17:16:26 Dictated By: AMILCAR MCGEE DO
[2021-08-16 19:46] VITALS: BP 106/69
[2021-08-16] MEDS: clonazePAM 1 MG (KlonoPIN) TAB PO SCH (21:07)
[2021-08-17] VITALS: BP 106/61
[2021-08-17 04:00] VITALS: BP 102/66
[2021-08-17] MEDS: MULTIVIT W/MINERALS TAB (THERAGRAN M) PO SCH (05:54)
[2021-08-17 06:03] LABS: HEMOGLOBIN 12.3 g/dL (11.5-16.0)
[2021-08-17 06:05] LABS: MEAN PLATELET VOLUME 10.5 fL (9.0-12.2); WHITE BLOOD COUNT 5.6 10^3/uL (4.3-11.0)
[2021-08-17 06:11] LABS: POTASSIUM 3.6 MMOL/L (3.6-5.0)
[2021-08-17 06:12] LABS: CALCIUM 8.3 MG/DL (8.5-10.1)
[2021-08-17 06:17] LABS: CREATININE SERUM 0.5 MG/DL (0.60-1.30)
[2021-08-17 07:35] VITALS: BP 99/63
[2021-08-17] MEDS: clonazePAM 0.5 MG (KlonoPIN) TAB PO SCH ×2 (08:31→12:14)
[2021-08-17] MEDS: KETOROLAC 15 MG/ML VIAL IVP PRN ×2 (08:31→21:06)
[2021-08-17] MEDS: FAMOTIDINE 20 MG (PEPCID) TABLET PO SCH (08:31)
[2021-08-17] MEDS: MENTHOL/ZINC OXIDE (CALMOSEPTINE) 113 GM TUBE TP SCH ×2 (08:32→21:01)
[2021-08-17] MEDS: LACTATED RINGERS 1,000 ML IV SCH (08:38)
--- NOTE | 2021-08-17 10:08 | Anesthesia-General Post-Op ---
General Patient Condition Mental Status/LOC: Same as Preop Cardiovascular: Satisfactory Nausea/Vomiting: Absent Respiratory: Satisfactory Pain: Controlled Complications: Absent Post Op Complications Complications None Follow Up Care/Instructions Patient Instructions None needed. Anesthesia/Patient Condition Patient Condition Patient is doing well, no complaints, stable vital signs, no apparent adverse anesthesia problems. No complications reported per nursing. JOHNIE CARTER CRNA Aug 17, 2021 10:08
[2021-08-17 12:15] VITALS: BP 102/68
--- NOTE | 2021-08-17 13:16 | Progress Note - Hospitalist ---
Subjective HPI/CC On Admission Date Seen by Provider: Aug 17, 2021 Time Seen by Provider: 13:12 She is a 45-year-old female with a past medical history of intellectual delay, seizure disorder, remote history of a CVA with subsequent right-sided deficits who presented to the emergency department due to altered mental status and lethargy. She does not answer any of my questions. We have called her hand rug braider and director of casework but are awaiting a return phone call. All history is obtained from the records. She apparently has not been eating or drinking well and was actually supposed to be seen at [facility] for PEG tube placement today but was brought in by [place] staff due to her mentation. She was found to be quite dehydrated. I am unsure of the last time she ate. But per ER note it says that it was likely on Wednesday. Subjective/Events-last exam Pt is more alert today. Sister in law at bedside. pt eating well now. Focused Exam Lactate Level 08/15/21 09:25: Lactic Acid Level 1.93 Objective Exam Vital Signs Vital Signs Date Time Temp Pulse Resp B/P (MAP) Pulse Ox O2 Delivery O2 Flow Rate FiO2 08/17/21 12:15 36.4 74 18 102/68 (79) 97 Room Air 08/16/21 08:00 10.00 Capillary Refill : Less Than 3 Seconds General Appearance: No Apparent Distress, Chronically ill, Obese Respiratory: Lungs Clear, No Respiratory Distress Cardiovascular: Regular Rate, Rhythm, No Murmur Neurologic/Psychiatric: Alert Results/Procedures Lab Laboratory Tests 08/17/21 05:55 Patient resulted labs reviewed. Assessment/Plan Assessment and Plan Assess & Plan/Chief Complaint Dehydration Failure to thrive DC IVF Consulted with Dr Mcgee POD #2 s/p PEG placement Will have solar sales estimator see tomorrow for recs for feeds but actually eating very well now so will no start yet Negative UA reference services head consulted, appreciate recs Intellectual disability Seizure disorder Continue home meds DVT ppx: Lovenox after procedure MJ LEIWS MD Aug 17, 2021 13:15
[2021-08-17 15:50] VITALS: BP 109/72
[2021-08-17 19:30] VITALS: BP 125/77
[2021-08-17] MEDS: clonazePAM 1 MG (KlonoPIN) TAB PO SCH (21:01)
[2021-08-18 00:09] VITALS: BP 123/68
[2021-08-18 04:14] VITALS: BP 103/57
[2021-08-18] MEDS: MULTIVIT W/MINERALS TAB (THERAGRAN M) PO SCH (06:14)
[2021-08-18 08:00] VITALS: BP 97/50
[2021-08-18] MEDS ORDERED: PANTOPRAZOLE 40 MG (PROTONIX) VIAL IV SCH (09:00)
[2021-08-18] MEDS: MENTHOL/ZINC OXIDE (CALMOSEPTINE) 113 GM TUBE TP SCH (09:18)
[2021-08-18] MEDS: KETOROLAC 15 MG/ML VIAL IVP PRN (09:18)
[2021-08-18] MEDS: clonazePAM 0.5 MG (KlonoPIN) TAB PO SCH ×2 (09:22→12:08)
--- NOTE | 2021-08-18 09:38 | Physical Therapy Daily Note ---
PT Daily Note-Current Subjective Patient agrees to exercises. Mental Status Patient Orientation: MR Attachments: Castillo Catheter Transfers SCALE: Activities may be completed with or without assistive devices. 7-Cagsxcmwld-wtxylpy completes the activity by him/herself with no assistance from a helper. 5-Set-up or Clean-up Assistance-helper sets up or cleans up; patient completes activity. [place] assists only prior to or following the activity. 4-Supervision or Touching Assistance-helper provides verbal cues and/or touching/steadying and/or contact guard assistance as patient completes activity. Assistance may be provided throughout the activity or intermittently. 3-Partial/Moderate Assistance-helper does LESS THAN HALF the effort. [place] lifts, holds or supports trunk or limbs, but provides less than half the effort. 2-Substantial/Maximal Assistance-helper does MORE THAN HALF the effort. [place] lifts or holds trunk or limbs and provides more than half the effort. 1-Awzdmkejt-mdltkk does ALL the effort. Patient does none of the effort to complete the activity. Or, the assistance of 2 or more helpers is required for the patient to complete the activity. If activity was not attempted, code reason: 7-Patient Refused. 9-Not Applicable-not attempted and the patient did not perform the activity before the current illness, exacerbation or injury. 10-Not Attempted due to Environmental Limitations-(lack of equipment, weather restraints, etc.). 88-Not Attempted due to Medical Conditions or Safety Concerns. Roll Left & Right (QC): 1 Gait Training Does the Patient Walk?: No and Walking Goal NOT indicated Exercises Supine Ex: Ankle pumps, Heel Slides, Straight leg raise Supine Reps: 15 (mild PROM bilaterally) Assessment Patient is a Marcelino lift at facility [facility]. Tolerates PROM bilateral LE's. PT Group Home Goals Group Home Goals PT Group Home Goals Time Frame: Aug 23, 2021 Roll Left & Right (QC): 2 Sit to Lying (QC): 2 Lying-Sitting on Side/Bed(QC): 2 Sit to Stand (QC): 2 PT Plan Treatment/Plan Treatment Plan: Continue Plan of Care Treatment Duration: Aug 23, 2021 Frequency: 6 times per week Estimated Hrs Per Day: .25 hour per day Time/GCodes Time In: 835 Time Out: 845 Total Billed Treatment Time: 10 Total Billed Treatment 1 visit EX 10 min EMERY STONE PT Aug 18, 2021 09:38
[2021-08-18 12:00] VITALS: BP 98/56
--- NOTE | 2021-08-18 13:17 | Discharge Summary ---
Discharge Summary Hospital Course Problems/Dx: (1) Failure to thrive in adult Status: Acute (2) Dehydration Status: Acute (3) Encounter for PEG (percutaneous endoscopic gastrostomy) Status: Acute Hospital Course Date of Admission: Aug 15, 2021 at 11:48 Admission Diagnosis: Failure to thrive Family Physician/Provider: Rickie Cheung DO Date of Discharge: 08/18/21 Discharge Diagnosis: Failure to thrive, PEG placement Hospital Course: Niyah Tanner is a 45 year old female with intellectual disability who presented with failure to thrive. She was not taking anything by mouth and this has been an ongoing issue. General surgery was consulted and she had a PEG tube placed. Dietary was consulted and gave tube feeding recommendations. After the procedure her oral intake increased. She was given recommendations for tube feed boluses to provide 50% of her daily need with the option of increasing if her oral intake decreases. She was discharged back to [place] in stable condition. She should follow-up with her primary care physician in about a week. Labs and Pending Lab Test: Microbiology 08/15/21 MRSA Screen - Final, Complete MRSA not isolated 08/15/21 Blood Culture - Preliminary, Resulted No growth 08/15/21 Urine Culture - Final, Complete NO GROWTH Home Meds Active Reported Furosemide 40 Mg Tablet 40 Mg PO DAILY Clonazepam 0.5 Mg Tablet 0.5 Mg PO 0800,1200 Tetrahydrozoline HCl 15 Ml Drops 2 Drops OU Q6H PRN Vimpat (Lacosamide) 200 Mg Tablet 200 Mg PO BID Calcium (Calcium Carbonate) 500 Mg Tab.chew 1,000 Mg PO Q4H PRN Thera-Tabs (Multivitamins,Therapeutic) 1 Each Tablet 1 Each PO DAILY Guaifenesin-Dm 100-10 mg/5 ml (Guaifenesin/Dextromethorphan) 5 Ml Liquid 10 Ml PO Q6H PRN Nystatin 1 Each Powder.ea. 1 Each TOP BID APPLY TO BUTTOCKS Neosporin Ointment (Neomycin Chapman/Bacitrac Zn/Poly) 28.3 Gm Oint...g. 1 Applic TP Q12H PRN Milk of Magnesia (Magnesium Hydroxide) 400 Mg/5 Ml Oral.susp 30 Ml PO Q12H PRN Clotrimazole-Betamethasone Crm (Clotrimazole/Betamethasone Dip) 15 Gm Cream..g. 1 Applic TP Q8H PRN APPLY TO ABDOMINAL FOLD AND UNDER BREASTS Lamotrigine 200 Mg Tablet 200 Mg PO QID Imodium A-D (Loperamide HCl) 2 Mg Capsule 2-4 Mg PO UD PRN MDD 4 TABS Hydrocortisone (Hydrocortisone Acetate) 28 Gm Oint...g. 1 Applic TP Q8H PRN Famotidine 20 Mg Tablet 20 Mg PO BID Cough Drops (Menthol) 5.4 Mg Lozenge 5.4 Mg MM Q1H PRN MDD 8 LOZENGES Clonazepam 1 Mg Tablet 1 Mg PO HS Calmoseptine Ointment (Menthol/Lanolin/Calamine/Znox) 71 Gm Oint 1 Applic TP BID Benadryl Allergy (Diphenhydramine HCl) 25 Mg Tablet 25-50 Mg PO Q6H PRN Tylenol (Acetaminophen) 325 Mg Capsule 650 Mg PO Q6H PRN Assessment/Pt Instructions Take medications as prescribed. Follow-up with your primary care physician. Return with worsening symptoms. Discharge Planning: <30 minutes discharge planning Discharge Instructions Discharge Diet: No Restrictions, Other Diet (tube feeding per instructions) Activity as Tolerated: Yes Consultations General surgery Discharge Physical Examination Vital Signs Vital Signs Date Time Temp Pulse Resp B/P (MAP) Pulse Ox O2 Delivery O2 Flow Rate FiO2 08/18/21 12:00 36.7 75 18 98/56 (70) 97 Room Air 08/16/21 08:00 10.00 General Appearance: No Apparent Distress, WD/WN, Other (Syndromic appearance) Respiratory: Lungs Clear, Normal Breath Sounds, No Respiratory Distress Cardiovascular: Regular Rate, Rhythm, No Edema, No Murmur Gastrointestinal: Normal Bowel Sounds, Non Tender, Soft Extremity: Normal Inspection, Non Tender, No Pedal Edema Skin: Normal Color, Warm/Dry Neurologic/Psychiatric: Alert, Normal Mood/Affect Allergies: Coded Allergies: No Known Drug Allergies (Unverified , 08/15/21) Copy Copies To 1: RICKIE CHEUNG DO Discharge Summary Date of Admission Aug 15, 2021 at 11:48 Date of Discharge Discharge Date: Aug 18, 2021 Discharge Time: 13:11 Admission Diagnosis Dehydration Failure to thrive Consults/Procedures Consulations General surgery Procedures PEG placement Discharge Diagnosis (1) Failure to thrive in adult Status: Acute (2) Dehydration Status: Acute (3) Encounter for PEG (percutaneous endoscopic gastrostomy) Status: Acute SHANTHI BANKS MD Aug 18, 2021 13:17
[2021-08-18 16:17] VITALS: BP 120/58
== END 2021-08-18 16:45 | disposition short-term general hospital (02) | DRG 641 ==
LOC: ER 08:40 → 4TH 11:48
PROVIDERS: ADMIT Family Medicine; ATTEND Internal Medicine
PROC: 0DB68ZX Excision of Stomach, Via Natural or Artificial Opening Endoscopic, Diagnostic (ICD-10-PCS; 2021-08-15)
PROC: 0DB78ZX Excision of Stomach, Pylorus, Via Natural or Artificial Opening Endoscopic, Diagnostic (ICD-10-PCS; 2021-08-15)
PROC: 0DB48ZX Excision of Esophagogastric Junction, Via Natural or Artificial Opening Endoscopic, Diagnostic (ICD-10-PCS; 2021-08-15)
PROC: 0DH63UZ Insertion of Feeding Device into Stomach, Percutaneous Approach (ICD-10-PCS; principal; 2021-08-15 14:30)
DX: E86.0 Dehydration (principal); N39.0 Urinary tract infection, site not specified; R62.7 Adult failure to thrive; Z68.29 Body mass index [BMI] 29.0-29.9, adult; K29.70 Gastritis, unspecified, without bleeding; K20.90 Esophagitis, unspecified without bleeding; G40.909 Epilepsy, unspecified, not intractable, without status epilepticus; L89.152 Pressure ulcer of sacral region, stage 2; L89.892 Pressure ulcer of other site, stage 2; F41.9 Anxiety disorder, unspecified; K57.90 Diverticulosis of intestine, part unspecified, without perforation or abscess without bleeding; F79 Unspecified intellectual disabilities; Z20.822 Contact with and (suspected) exposure to COVID-19
CPT/HCPCS: 36410; 36415; 51701; 51702; 71045; 76937; 80048; 80053; 81000; 83605; 84145; 85025; 85027; 85610; 85730; 86141; 87040; 87081; 87088; 87636

== ENCOUNTER → 2021-09-24 | Outpatient (CLI) | payer MEDICAID ==
[~2021-09-24] MED LIST changes: +TETR15DR49 OU
--- NOTE | 2021-09-24 14:14 | Diagnostic Imaging Report ---
INDICATION: Increasing temperature as well as cough and congestion. TIME OF EXAM: 1:26 PM Correlation is made with prior chest from 08/15/2021. Heart size stable. Lung volumes are diminished with central congestion noted. There is no overt failure. No effusion or pneumothorax is detected. IMPRESSION: Diminished lung volumes with central congestion. Dictated by: Dictated on workstation # [id number]
== END ==
LOC: RAD 13:01
PROVIDERS: ATTEND Family Medicine
DX: R09.89 Other specified symptoms and signs involving the circulatory and respiratory systems (principal); R05.9 Cough, unspecified; R50.9 Fever, unspecified
CPT/HCPCS: 71045

== ENCOUNTER → 2021-10-28 | Outpatient (CLI) | payer MEDICAID | LOC: WOUNDCARE 12:48 | PROVIDERS: ATTEND Family Medicine | DX: L22 Diaper dermatitis (principal); L03.317 Cellulitis of buttock; G81.11 Spastic hemiplegia affecting right dominant side; F72 Severe intellectual disabilities; L89.313 Pressure ulcer of right buttock, stage 3 | CPT/HCPCS: 99212 ==

== ENCOUNTER → 2021-11-04 | Outpatient (CLI) | payer MEDICAID | LOC: WOUNDCARE 12:57 | PROVIDERS: ATTEND Family Medicine | DX: L22 Diaper dermatitis (principal); L03.317 Cellulitis of buttock; G81.11 Spastic hemiplegia affecting right dominant side; F72 Severe intellectual disabilities; L89.313 Pressure ulcer of right buttock, stage 3; I96 Gangrene, not elsewhere classified | CPT/HCPCS: 99212 ==

== ENCOUNTER → 2021-11-13 | Outpatient (CLI) | payer MEDICAID | LOC: WOUNDCARE 13:44 | PROVIDERS: ATTEND Family Medicine | DX: L22 Diaper dermatitis (principal); L03.317 Cellulitis of buttock; G81.11 Spastic hemiplegia affecting right dominant side; F72 Severe intellectual disabilities; L89.313 Pressure ulcer of right buttock, stage 3 | CPT/HCPCS: 99212 ==

== ENCOUNTER → 2021-11-20 | Outpatient (CLI) | payer MEDICAID | LOC: WOUNDCARE 09:57 | PROVIDERS: ATTEND Family Medicine | DX: L22 Diaper dermatitis (principal); G81.11 Spastic hemiplegia affecting right dominant side; F79 Unspecified intellectual disabilities | CPT/HCPCS: 99212 ==

== ENCOUNTER → 2021-12-26 | Outpatient (CLI) | payer MEDICAID | LOC: WOUNDCARE 09:24 | PROVIDERS: ATTEND Family Medicine | DX: L89.153 Pressure ulcer of sacral region, stage 3 (principal); L22 Diaper dermatitis; L03.115 Cellulitis of right lower limb; E66.01 Morbid (severe) obesity due to excess calories; G81.01 Flaccid hemiplegia affecting right dominant side; F72 Severe intellectual disabilities | CPT/HCPCS: 11042; A6197; A6212; G0463 ==

== ENCOUNTER → 2022-01-06 | Outpatient (CLI) | payer MEDICAID | LOC: WOUNDCARE 09:00 | PROVIDERS: ATTEND Family Medicine | DX: L89.153 Pressure ulcer of sacral region, stage 3 (principal); L22 Diaper dermatitis; L03.115 Cellulitis of right lower limb; E66.01 Morbid (severe) obesity due to excess calories; G81.01 Flaccid hemiplegia affecting right dominant side; F72 Severe intellectual disabilities; I96 Gangrene, not elsewhere classified | CPT/HCPCS: A6197; A6212; G0463; 99213 ==

== ENCOUNTER → 2022-01-13 | Outpatient (CLI) | payer MEDICAID | LOC: WOUNDCARE 10:08 | PROVIDERS: ATTEND Family Medicine | DX: L89.153 Pressure ulcer of sacral region, stage 3 (principal); L22 Diaper dermatitis; L03.115 Cellulitis of right lower limb; E66.01 Morbid (severe) obesity due to excess calories; G81.01 Flaccid hemiplegia affecting right dominant side; F81.81 Disorder of written expression; F72 Severe intellectual disabilities; I96 Gangrene, not elsewhere classified | CPT/HCPCS: A6212; G0463; 99213 ==

== ENCOUNTER → 2022-01-20 | Outpatient (CLI) | payer MEDICAID | LOC: WOUNDCARE 13:22 | PROVIDERS: ATTEND Family Medicine | DX: L22 Diaper dermatitis (principal); E66.01 Morbid (severe) obesity due to excess calories; G81.01 Flaccid hemiplegia affecting right dominant side; F72 Severe intellectual disabilities | CPT/HCPCS: 99212 ==

== ENCOUNTER → 2022-01-27 | Outpatient (CLI) | payer MEDICAID | LOC: WOUNDCARE 11:41 | PROVIDERS: ATTEND Family Medicine | DX: L22 Diaper dermatitis (principal); E66.01 Morbid (severe) obesity due to excess calories; G81.01 Flaccid hemiplegia affecting right dominant side; F72 Severe intellectual disabilities | CPT/HCPCS: 99212 ==

== ENCOUNTER 2022-07-29 05:39 | Outpatient (CLI) | payer MEDICAID ==
[~2022-07-29] VITALS: Ht 142.2 cm; Wt 83.6 kg
[~2022-07-29 05:39] MED LIST changes: -GUAI5LIQ11 PO; +GUAI5LIQ14 PO
[2022-07-30] MEDS ORDERED: OMEP20TA56 PO (10:28)
== END 2022-07-30 10:29 ==
LOC: PREOP 05:39
PROVIDERS: ATTEND Surgery
DX: Z01.818 Encounter for other preprocedural examination (principal)

== ENCOUNTER 2022-07-31 13:47 | Day surgery (SDC) | payer MEDICAID ==
[~2022-07-31] VITALS: Ht 142.2 cm; Wt 83.9 kg
[~2022-07-31 13:47] MED LIST changes: +OMEP20TA56 PO
[2022-07-31 16:01] VITALS: BP 103/89
--- NOTE | 2022-07-31 17:02 | Diagnostic Imaging Report ---
EXAMINATION: CT abdomen and pelvis without contrast. TECHNIQUE: Multiple contiguous axial images were obtained through the abdomen and pelvis without the use of intravenous contrast. All CT scans use one or more of the following dose optimizing techniques: automated exposure control, MA and/or KvP adjustment based on patient size and exam type or iterative reconstruction. HISTORY: PEG TUBE REPLACEMENT COMPARISON: 03/19/2020 FINDINGS: Lung bases: Bibasilar dependent atelectasis. Solid organs: The liver is normal. Multiple layering hyperdense stones within the gallbladder. There is no biliary ductal dilation. Pancreas is normal. Spleen is normal. Adrenal glands are normal. There is right renal cyst which requires no followup. Bowel: There is a percutaneous gastrostomy tube present within the gastric lumen. There is a hyperdense structure possible foreign body within the dependent stomach (series 2 image 37). Measures approximately 2.7 cm. There is no bowel obstruction. The colon and appendix are normal. Peritoneum: There is no intraperitoneal free fluid or free air. No suspicious lymphadenopathy. Vasculature: Normal without aneurysm. Musculoskeletal: Degenerative changes of the spine without suspicious osseous lesion or compression fracture. There is dextrocurvature of the spine. Pelvis: The uterus and adnexa are normal. The urinary bladder is normal. IMPRESSION: 1. Percutaneous gastrostomy tube placement within the gastric lumen. 2. Possible radiopaque foreign body within the stomach. 3. No other acute abnormality within the abdomen or pelvis. Dictated by: Dictated on workstation # [id number]
--- NOTE | 2022-08-01 04:30 | OPERATIVE REPORT ---
DATE OF SERVICE: 07/31/2022 PREOPERATIVE DIAGNOSIS: Malfunctioning gastrostomy tube. POSTOPERATIVE DIAGNOSIS: Malfunctioning gastrostomy tube. PROCEDURE: Removal of gastrostomy tube and placement of 18-Z[place]ian MARIA GUADALUPE tube. SURGEON: Amilcar Mcgee DO ANESTHESIA: None. ESTIMATED BLOOD LOSS: Scant. COMPLICATIONS: See note. INDICATIONS: The patient is a 46-year-old female who had a gastrostomy tube. She was using on occasion, but it has gotten fairly irritating and appears ____ to have a slightly poor compliance with flushing. Risks and benefits were discussed with removing the gastrostomy tube and replacement. The patient's consent was signed and on the chart. DESCRIPTION OF PROCEDURE: The patient was placed in supine position. Gentle traction was placed on the gastrostomy tube. This continued to be removed. The catheter broke and appears to be broken right at the hub of the internal flange. The wound was probed without any success in finding the area. Therefore, we opted to go ahead and proceed with placing the MARIA GUADALUPE tube. An 18-Zambian MARIA GUADALUPE tube had to be inserted and the balloon was inflated and due to the inner flange breaking off, we will get a CT scan to further evaluate to make sure this is not outside of the stomach. CT scan was performed demonstrating contrast into the stomach lumen. There was the apparent inner flange present. We will leave this and I feel this will likely pass through the GI system. If not, may need further intervention. The patient had the CT scan demonstrating the new MARIA GUADALUPE within the gastric lumen. The previous internal flange was visualized within the stomach. I think this will pass on its own. If any changes, will be seen at that time. Otherwise, we will follow up in a couple of weeks. Job ID: [id number] DocumentID: [id number] Dictated Date: 07/31/2022 23:46:27 Waste Collection Driver Date: 08/01/2022 02:34:59 Dictated By: AMILCAR MCGEE DO
== END 2022-07-31 17:20 | disposition home or self-care (01) ==
LOC: SDC 13:47 → ENDO 17:20
PROVIDERS: ATTEND Surgery
DX: K94.23 Gastrostomy malfunction (principal); Z79.899 Other long term (current) drug therapy
CPT/HCPCS: 74176

== ENCOUNTER → 2022-11-04 | Outpatient (CLI) | payer MEDICAID ==
[~2022-11-04] MED LIST changes: +ALB0.5V INH
[2022-11-04 10:54] LABS: BASOPHILS % (AUTO) 1 % (0-10); EOSINOPHILS # (AUTO) 0.1 10^3/uL (0.0-0.3); EOSINOPHILS % (AUTO) 2 % (0-10); HEMATOCRIT 42 % (35-52); HEMOGLOBIN 14.6 g/dL (11.5-16.0); LYMPHOCYTES # (AUTO) 1.1 10^3/uL (1.0-4.0); LYMPHOCYTES % (AUTO) 24 % (12-44); MEAN CORPUSCULAR HEMOGLOBIN 33 pg (25-34); MEAN CORPUSCULAR HGB CONC 34 g/dL (32-36); MEAN CORPUSCULAR VOLUME 94 fL (80-99); MEAN PLATELET VOLUME 8.6 fL (9.0-12.2); MONOCYTES # (AUTO) 0.6 10^3/uL (0.0-1.0); MONOCYTES % (AUTO) 12 % (0-12); NEUTROPHILS # (AUTO) 2.8 10^3/uL (1.8-7.8); NEUTROPHILS % (AUTO) 61 % (42-75); PLATELET COUNT 154 10^3/uL (130-400); WHITE BLOOD COUNT 4.6 10^3/uL (4.3-11.0)
--- NOTE | 2022-11-04 11:08 | Diagnostic Imaging Report ---
INDICATION: Cough. Time of Exam: 11:04 AM Correlation is made with prior chest from 09/24/2021. There is mild central congestion but no overt failure. No infiltrates are seen. No effusion or pneumothorax identified. IMPRESSION: Mild central congestion. Dictated by: Dictated on workstation # [id number]
[2022-11-04 11:12] LABS: ALBUMIN 3.2 GM/DL (3.2-4.5); BILIRUBIN,TOTAL 0.8 MG/DL (0.1-1.0); CALCIUM 8.8 MG/DL (8.5-10.1); CREATININE SERUM 0.62 MG/DL (0.60-1.30); POTASSIUM 3.7 MMOL/L (3.6-5.0); TOTAL PROTEIN 8.6 GM/DL (6.4-8.2)
== END ==
LOC: RAD 10:23
PROVIDERS: ATTEND Family Medicine
DX: R05.9 Cough, unspecified (principal); R09.89 Other specified symptoms and signs involving the circulatory and respiratory systems
CPT/HCPCS: 36415; 71045; 80053; 85025

== ENCOUNTER 2022-11-05 15:10 | Inpatient (IN) | payer MEDICAID ==
[~2022-11-05] VITALS: Ht 147 cm; Wt 82.8 kg
[~2022-11-05 15:10] MED LIST changes: -ALB0.5V INH
[2022-11-05] MEDS ORDERED: NS IV 500 ML 500 ML IV ONE (15:45)
--- NOTE | 2022-11-05 15:52 | ED General ---
General Chief Complaint: Respiratory Problems Stated Complaint: LOW OX LVLS,UPPER RESP INFECTION Nursing Triage Note: ARRIVED VIA WC FROM [facility] WITH COMPLAINTS OF LOW OXYGEN SATS AND RESP ISSUE X1 WEEK. TEMP TODAY. LABS AND XRAYS YESTERDAY. NEG COVID AND FLU. Source of Information: Patient Exam Limitations: No Limitations History of Present Illness Date Seen by Provider: Nov 05, 2022 Time Seen by Provider: 15:35 Initial Comments Here with care attendance with report of low oxygen saturations at 93% at the house and temp of 101.5. Was seen by Tom this week and had chest x-ray and labs drawn yesterday. He did start her on a little Lasix because there was some central congestion. Apparently previously negative for COVID and flu. She states that she does not feel well and has sore throat. front office attendant reports that this is not her normal demeanor and that she appears quite ill. Patient is in [facility] and does have 24-hour care attendance and does follow with Dr. Cheung. Nurse prosthetics assistant reports that the patient has had some frequency of urination with hesitation but usually has 1 or 2 voids a day despite feeling like she has to go to the bathroom much more frequently. She reports that she does not have a urinary tract infection at least on testing recently. No report of vomiting or diarrhea. Does have significant nasal congestion. Patient is wheelchair-bound and appears to have quadriplegia. Timing/Duration: 1 Week, Getting Worse Severity: Moderate Associated Systoms: Cough, Fever/Chills; No Nausea/Vomiting; Shortness of Air, Weakness Allergies and Home Medications Allergies Coded Allergies: No Known Drug Allergies (Unverified , 08/15/21) Patient Home Medication List Home Medication List Reviewed: Yes Acetaminophen (Tylenol) 325 Mg Capsule, 650 MG PO Q6H PRN for PAIN-MILD (1-4), (Reported) Entered as Reported by: CARMEN CARSON on 06/17/211626 Calcium Carbonate (Calcium) 500 Mg Tab.chew, 1,000 MG PO Q4H PRN for HEARTBURN, (Reported) Entered as Reported by: CARMEN CARSON on 06/17/211626 Clonazepam (Clonazepam) 1 Mg Tablet, 1 MG PO HS, (Reported) Entered as Reported by: CARMEN CARSON on 06/17/211626 Clonazepam (Clonazepam) 0.5 Mg Tablet, 0.5 MG PO 0800,1200, (Reported) Entered as Reported by: CARMEN CARSON on 08/15/211416 Clotrimazole/Betamethasone Dip (Clotrimazole-Betamethasone Crm) 15 Gm Cream..g., 1 APPLIC TP Q8H PRN for RASH, (Reported) Entered as Reported by: CARMEN CARSON on 06/17/211626 Diphenhydramine HCl (Benadryl Allergy) 25 Mg Tablet, 25-50 MG PO Q6H PRN for ALLERGIC REACTIONS, (Reported) Entered as Reported by: CARMEN CARSON on 06/17/211626 Famotidine (Famotidine) 20 Mg Tablet, 20 MG PO BID, (Reported) Entered as Reported by: CRAMEN CARSON on 06/17/211626 Furosemide (Furosemide) 40 Mg Tablet, 40 MG PO DAILY, (Reported) Entered as Reported by: CARMEN CARSON on 08/15/211416 Guaifenesin/Dextromethorphan (Guaifenesin-Dm 100-10 mg/5 ml) 5 Ml Liquid, 10 ML PO Q6H PRN for COUGH, (Reported) Entered as Reported by: CARMEN CARSON on 06/17/211626 Hydrocortisone Acetate (Hydrocortisone) 28 Gm Oint...g., 1 APPLIC TP Q8H PRN for RASH, (Reported) Entered as Reported by: CARMEN CARSON on 06/17/211626 Lacosamide (Vimpat) 200 Mg Tablet, 200 MG PO BID, (Reported) Entered as Reported by: CARMEN CARSON on 06/17/211626 Lamotrigine (Lamotrigine) 200 Mg Tablet, 200 MG PO QID, (Reported) Entered as Reported by: CARMEN CARSON on 06/17/211626 Loperamide HCl (Imodium A-D) 2 Mg Capsule, 2-4 MG PO UD PRN for DIARRHEA, (Reported) Entered as Reported by: CARMEN CARSON on 06/17/211626 Magnesium Hydroxide (Milk of Magnesia) 400 Mg/5 Ml Oral.susp, 30 ML PO Q12H PRN for CONSTIPATION-7TH LINE, (Reported) Entered as Reported by: CARMEN CARSON on 06/17/211626 Menthol (Cough Drops) 5.4 Mg Lozenge, 5.4 MG MM Q1H PRN for COUGH, (Reported) Entered as Reported by: CARMEN CARSON on 06/17/211626 Menthol/Lanolin/Calamine/Znox (Calmoseptine Ointment) 71 Gm Oint, 1 APPLIC TP BID, (Reported) Entered as Reported by: CARMEN CARSON on 06/17/211626 Multivitamins,Therapeutic (Thera-Tabs) 1 Each Tablet, 1 EACH PO DAILY, (Reported) Entered as Reported by: CARMEN CARSON on 06/17/211626 Neomycin Chapman/Bacitrac Zn/Poly (Neosporin Ointment) 28.3 Gm Oint...g., 1 APPLIC TP Q12H PRN for MINOR CUTS AND ABRASIONS, (Reported) Entered as Reported by: CARMEN CARSON on 06/17/211626 Nystatin (Nystatin) 1 Each Powder.ea., 1 EACH TOP BID, (Reported) Entered as Reported by: CARMEN CARSON on 06/17/211626 Omeprazole (Omeprazole) 20 Mg Tablet.dr, 20 MG PO DAILY, (Reported) Entered as Reported by: FLORECITA YU on 07/30/22 1028 Tetrahydrozoline HCl (Tetrahydrozoline HCl) 15 Ml Drops, 2 DROPS OU Q6H PRN for REDNESS/IRRITATION, (Reported) Entered as Reported by: CARMEN CARSON on 08/15/21 1417 Review of Systems Review of Systems Constitutional: see HPI, chills, fever EENTM: nose congestion, throat pain Respiratory: cough, short of breath Cardiovascular: no symptoms reported Gastrointestinal: No diarrhea, No nausea, No vomiting Genitourinary: see HPI, frequency Musculoskeletal: no symptoms reported Skin: no symptoms reported Psychiatric/Neurological: No Symptoms Reported All Other Systems Reviewed Negative Unless Noted: Yes Past Jhpovfe-Pzgknb-Ukjbpv Hx Patient Social History Tobacco Use?: No Substance use?: No Alcohol Use?: No Immunizations Up To Date Tetanus Booster (TDap): More than 5yrs PED Vaccines UTD: No First/Initial COVID19 Vaccinat: DECEMBER 13, 2020 Second COVID19 Vaccination [place]: JANUARY 10, 2021 Third COVID19 Vaccination Date: DECEMBER 13, 2020 COVID19 Vaccine Computer Service Technician: UNKNOWN Seasonal Allergies Seasonal Allergies: No Past Medical History Surgeries: Yes Respiratory: No Cardiac: No Neurological: Yes (Chronic neurologic deficits with right-sided paralysis.) Seizure Disorder, Stroke Reproductive Disorders: No Genitourinary: Yes Bladder Infection Gastrointestinal: Yes Diverticulosis Musculoskeletal: Yes Fractures Endocrine: No HEENT: Yes Tonsilitis Cancer: No Psychosocial: Yes Anxiety 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 0.0oz. 90.224335ag; 37.00 BMI Method:Estimated General Appearance: WD/WN, Obese HEENT: PERRL/EOMI, Other (Mucous membranes dry with pharyngeal erythema) Neck: Non Tender, Supple Respiratory: Crackles (Bilateral bases), Other (Tachypneic) Cardiovascular: Regular Rate, Rhythm, No Murmur Gastrointestinal: Non Tender, Soft Back: No CVA Tenderness, Decreased Range of Motion (Chronic) Extremity: Pedal Edema (1-2+ mid tibia bilateral), Other (Contractures of both feet) Neurologic/Psychiatric: Alert, Depressed Affect, Other (Weak appearing globally) Skin: normal color, warm/dry Focused Exam Lactate Level 11/05/22 16:20: Lactic Acid Level 1.21 Lactic Acid Level Laboratory Tests Test 11/05/22 16:20 Lactic Acid Level 1.21 MMOL/L (0.50-2.00) Progress/Results/Core Measures Suspected Sepsis SIRS Temperature: Pulse: 78 Respiratory Rate: 16 Laboratory Tests 11/05/22 16:20: White Blood Count 4.3 Blood Pressure / Mean: 11/05/22 16:20: Lactic Acid Level 1.21 Laboratory Tests 11/05/22 16:20: Creatinine 0.64, INR Comment 1.1, Platelet Count 162, Total Bilirubin 0.8 Results/Orders Lab Results Laboratory Tests Test 11/05/22 15:54 11/05/22 16:00 11/05/22 16:20 Range/Units Influenza Type A (RT-PCR) Not Detected Not Detecte Influenza Type B (RT-PCR) Not Detected Not Detecte SARS-CoV-2 RNA (RT-PCR) Detected H Not Detecte Urine Color YELLOW Urine Clarity CLEAR Urine pH 7.5 5-9 Urine Specific [place] 1.015 L 1.016-1.022 Urine Protein NEGATIVE NEGATIVE Urine Glucose (UA) NEGATIVE NEGATIVE Urine Ketones NEGATIVE NEGATIVE Urine Nitrite NEGATIVE NEGATIVE Urine Bilirubin NEGATIVE NEGATIVE Urine Urobilinogen 0.2 < = 1.0 MG/DL Urine Leukocyte Esterase NEGATIVE NEGATIVE Urine RBC (Auto) NEGATIVE NEGATIVE Urine RBC NONE /HPF Urine WBC NONE /HPF Urine Squamous Epithelial Cells NONE /HPF Urine Crystals NONE /LPF Urine Bacteria TRACE /HPF Urine Casts NONE /LPF Urine Mucus SMALL H /LPF Urine Culture Indicated CULTURE PENDING White Blood Count 4.3 4.3-11.0 10^3/uL Red Blood Count 4.20 3.80-5.11 10^6/uL Hemoglobin 13.6 11.5-16.0 g/dL Hematocrit 39 35-52 % Mean Corpuscular Volume 94 80-99 fL Mean Corpuscular Hemoglobin 32 25-34 pg Mean Corpuscular Hemoglobin Concent 35 32-36 g/dL Red Cell Distribution Width 13.1 10.0-14.5 % Platelet Count 162 130-400 10^3/uL Mean Platelet Volume 8.7 L 9.0-12.2 fL Immature Granulocyte % (Auto) 1 % Neutrophils (%) (Auto) 52 42-75 % Lymphocytes (%) (Auto) 35 12-44 % Monocytes (%) (Auto) 10 0-12 % Eosinophils (%) (Auto) 2 0-10 % Basophils (%) (Auto) 1 0-10 % Neutrophils # (Auto) 2.2 1.8-7.8 10^3/uL Lymphocytes # (Auto) 1.5 1.0-4.0 10^3/uL Monocytes # (Auto) 0.4 0.0-1.0 10^3/uL Eosinophils # (Auto) 0.1 0.0-0.3 10^3/uL Basophils # (Auto) 0.0 0.0-0.1 10^3/uL Immature Granulocyte # (Auto) 0.0 0.0-0.1 10^3/uL Prothrombin Time 14.6 12.2-14.7 SEC INR Comment 1.1 0.8-1.4 Activated Partial Thromboplast Time 33 24-35 SEC Sodium Level 136 135-145 MMOL/L Potassium Level 3.9 3.6-5.0 MMOL/L Chloride Level 100 98-107 MMOL/L Carbon Dioxide Level 26 21-32 MMOL/L Anion Gap 10 5-14 MMOL/L Blood Urea Nitrogen 9 7-18 MG/DL Creatinine 0.64 0.60-1.30 MG/DL Estimat Glomerular Filtration Rate 110 BUN/Creatinine Ratio 14 Glucose Level 90 70-105 MG/DL Lactic Acid Level 1.21 0.50-2.00 MMOL/L Calcium Level 8.7 8.5-10.1 MG/DL Corrected Calcium 9.4 8.5-10.1 MG/DL Total Bilirubin 0.8 0.1-1.0 MG/DL Aspartate Amino Transf (AST/SGOT) 37 H 5-34 U/L Alanine Aminotransferase (ALT/SGPT) 24 0-55 U/L Alkaline Phosphatase 127 40-136 U/L B-Type Natriuretic Peptide < 10.0 <100.0 PG/ML Total Protein 8.2 6.4-8.2 GM/DL Albumin 3.1 L 3.2-4.5 GM/DL My Orders Orders - NAYANA FAULKNER MD Cbc With Automated Diff (11/05/22 15:42) Comprehensive Metabolic Panel (11/05/22 15:42) Blood Culture (11/05/22 15:42) Sputum Culture (11/05/22 15:42) Urinalysis (11/05/22 15:42) Urine Culture (11/05/22 15:42) Protime With Inr (11/05/22 15:42) Partial Thromboplastin Time (11/05/22 15:42) Chest 1 View, Ap/Pa Only (11/05/22 15:42) Ed Iv/Invasive Line Start (11/05/22 15:42) Vital Signs Adult Sepsis Patie Q15M (11/05/22 15:42) O2 (11/05/22 15:42) Remove Rings In Anticipation O (11/05/22 15:42) Lactic Acid Analyzer (11/05/22 15:42) Influenza A And B By Pcr (11/05/22 15:42) Bnp Corey (11/05/22 15:42) Covid 19 Inhouse Test (11/05/22 15:42) Ns Iv 500 Ml (Sodium Chloride 0.9%) (11/05/22 15:45) Procalcitonin (Pct) (11/05/22 17:36) Dexamethasone Injection (Decadron Inje (11/05/22 18:00) Code/Resuscitation (11/05/22 17:47) Ed Admission (Communication) (11/05/22 17:47) Medications Given in ED Current Medications Medications Dose Ordered Sig/Horace Route Start Time Stop Time Status Last Admin Dose Admin Sodium Chloride 500 ml @ 0 mls/hr Q0M ONCE IV 11/05/22 15:45 11/05/22 15:46 DC 11/05/22 16:20 0 MLS/HR Vital Signs/I&O 11/05/22 11/05/22 15:29 17:48 Temp 36.7 Pulse 78 82 Resp 16 16 B/P (MAP) 124/71 Pulse Ox 94 96 O2 Delivery Room Air Room Air Capillary Refill : Less Than 3 Seconds Progress Note : Progress Note Seen and evaluated. Patient does appear ill appearing with history of fever for a week. Despite flu and COVID being negative previously, we will go ahead and recheck that given predominance in the community. Given the length of disease, we will initiate sepsis protocol including IV, CBC, CMP, BNP, blood culture, lactic acid and UA. We will get chest x-ray due to the shortness of breath. Normal saline 500 mL bolus as patient is quite dry appearing. Monitor patient. 1740: Labs reviewed. Patient does have increased prominence of the chest x-ray especially on the left side indicating likely COVID related pneumonia. White count is not elevated so I believe this is viral mediated at this point. Procalcitonin is pending. Patient is at high risk for decline due to underlying MR status and medical condition. I did discuss the case with Dr. Santana and she accepts patient for admission, inpatient status. We will initiate Decadron. This was initially ordered p.o. but we will switch that to IV. She does tolerate p.o. but has recently been using only PEG tube because of increased mucus and difficulty with swallowing related to that. I will write bridge orders and Dr. Santana will continue orders from there. Discussed case with the care providers and they are very appreciative of the admission as she would be very difficult to manage at the house due to her current situation. Patient is not requiring oxygen currently but is very ill-appearing. Diagnostic Imaging Diagonstic Imaging: Xray Plain Films/CT/US/NM/MRI: chest Comments [facility] [place], [place] NAME: RADHAMES DIAZ [facility] REC#: [id number] PT STATUS: REG ER : 1975 PHYSICIAN: NAYANA FAULKNER MD ADMIT DATE: 11/05/22/ER Draft Date of Exam:11/05/22 CHEST 1 VIEW, AP/PA ONLY CLINICAL INDICATION: Patient with complaints of low oxygen saturations and respiratory issues x1 week. EXAM: Chest x-ray PA and lateral views. COMPARISON: None. FINDINGS: Lungs/pleura: There are mild patchy airspace opacities involving the left midlung field and left lung base. There is minimal right lung base atelectasis versus infiltrates. There is no pneumothorax. There is no pleural effusion. Mediastinum: Unremarkable. Pulmonary vasculature: Pulmonary vasculature is mildly congested. Heart: There is cardiomegaly. Bones/extrathoracic soft tissue: There are degenerative spurs involving the spine. There is left curvature of the lumbar spine. IMPRESSION: 1: There is cardiomegaly with mild pulmonary vascular congestion which could be seen with congestive heart failure. 2: There are mild patchy airspace opacities involving the left midlung field and left lung base which may be related to lung infiltrates or pulmonary congestion. There is minimal right lung base atelectasis or infiltrate as well. Dictated on workstation # [id number] Dict: 11/05/221699 Trans: 11/05/221705 [id number] Interpreted by: VERA ALMODOVAR MD Electronically signed by: Departure Communication (Admissions) Time/Spoke to Admitting Phy: 17:40 Impression Primary Impression: Pneumonia due to COVID-19 virus Disposition: ADMITTED INPATIENT Condition: Stable Admissions Decision to Admit Reason: Admit from ER (General) Decision to Admit/Date: Nov 05, 2022 Time/Decision to Admit Time: 17:40 Departure-Patient Inst. Referrals: DIANA CHEUNG DO (PCP/Family) Primary Care Physician NAYANA FAULKNER MD Nov 05, 2022 15:52
[2022-11-05 16:07] LABS: BILIRUBIN,URINE NEGATIVE (NEGATIVE); CLARITY,URINE CLEAR; COLOR,URINE YELLOW; GLUCOSE, URINE (UA) NEGATIVE (NEGATIVE); KETONES,URINE NEGATIVE (NEGATIVE); LEUKOCYTE ESTERASE ,URINE NEGATIVE (NEGATIVE); NITRITE,URINE NEGATIVE (NEGATIVE); PH,URINE 7.5 (5-9); PROTEIN,URINE NEGATIVE (NEGATIVE)
[2022-11-05 16:18] LABS: BACTERIA,URINE TRACE /HPF
[2022-11-05 16:36] LABS: ALBUMIN 3.1 GM/DL (3.2-4.5)
[2022-11-05 16:37] LABS: BASOPHILS % (AUTO) 1 % (0-10); EOSINOPHILS # (AUTO) 0.1 10^3/uL (0.0-0.3); EOSINOPHILS % (AUTO) 2 % (0-10); HEMATOCRIT 39 % (35-52); HEMOGLOBIN 13.6 g/dL (11.5-16.0); LYMPHOCYTES # (AUTO) 1.5 10^3/uL (1.0-4.0); LYMPHOCYTES % (AUTO) 35 % (12-44); MEAN CORPUSCULAR HEMOGLOBIN 32 pg (25-34); MEAN CORPUSCULAR HGB CONC 35 g/dL (32-36); MEAN CORPUSCULAR VOLUME 94 fL (80-99); MEAN PLATELET VOLUME 8.7 fL (9.0-12.2); MONOCYTES # (AUTO) 0.4 10^3/uL (0.0-1.0); MONOCYTES % (AUTO) 10 % (0-12); NEUTROPHILS # (AUTO) 2.2 10^3/uL (1.8-7.8); NEUTROPHILS % (AUTO) 52 % (42-75); PLATELET COUNT 162 10^3/uL (130-400); POTASSIUM 3.9 MMOL/L (3.6-5.0); WHITE BLOOD COUNT 4.3 10^3/uL (4.3-11.0)
[2022-11-05 16:38] LABS: CALCIUM 8.7 MG/DL (8.5-10.1)
[2022-11-05 16:39] LABS: TOTAL PROTEIN 8.2 GM/DL (6.4-8.2)
[2022-11-05 16:41] LABS: BILIRUBIN,TOTAL 0.8 MG/DL (0.1-1.0)
[2022-11-05 16:43] LABS: CREATININE SERUM 0.64 MG/DL (0.60-1.30)
[2022-11-05 16:51] LABS: INR 1.1 (0.8-1.4); PROTHROMBIN TIME PATIENT 14.6 SEC (12.2-14.7)
--- NOTE | 2022-11-05 17:06 | Diagnostic Imaging Report ---
CLINICAL INDICATION: Patient with complaints of low oxygen saturations and respiratory issues x1 week. EXAM: Chest x-ray PA and lateral views. COMPARISON: None. FINDINGS: Lungs/pleura: There are mild patchy airspace opacities involving the left midlung field and left lung base. There is minimal right lung base atelectasis versus infiltrates. There is no pneumothorax. There is no pleural effusion. Mediastinum: Unremarkable. Pulmonary vasculature: Pulmonary vasculature is mildly congested. Heart: There is cardiomegaly. Bones/extrathoracic soft tissue: There are degenerative spurs involving the spine. There is left curvature of the lumbar spine. IMPRESSION: 1: There is cardiomegaly with mild pulmonary vascular congestion which could be seen with congestive heart failure. 2: There are mild patchy airspace opacities involving the left midlung field and left lung base which may be related to lung infiltrates or pulmonary congestion. There is minimal right lung base atelectasis or infiltrate as well. Dictated by: Dictated on workstation # [id number]
[2022-11-05] MEDS ORDERED: dexAMETHasone 6 MG TAB (DECADRON) PO STA (17:39)
[2022-11-05 19:10] VITALS: BP 129/79
[2022-11-05 19:41] VITALS: BP 129/79
[2022-11-05] MEDS ORDERED: ONDANSETRON 4 MG/2 ML (SDV) Z0FRAN IVP PRN (20:00)
[2022-11-05] MEDS ORDERED: RT-ALBUTEROL HFA 8.5 GM INHALER IH PRN (20:00)
[2022-11-05] MEDS: ENOXAPARIN 40 MG/0.4 ML (LOVENOX) SYR SC SCH (20:03)
[2022-11-05] MEDS: NS IV 1000 ML 1,000 ML IV SCH (20:05)
[2022-11-05 20:30] VITALS: BP 120/66
[2022-11-05] MEDS: RT-ALBUTEROL HFA 8.5 GM INHALER IH SCH (22:06)
[2022-11-06 00:07] VITALS: BP 163/97
[2022-11-06] MEDS: RT-ALBUTEROL HFA 8.5 GM INHALER IH SCH ×6 (02:39→22:31)
[2022-11-06 04:10] VITALS: BP 130/73
[2022-11-06] MEDS ORDERED: FLU QUADRIvalent (6 months+) 60 mcg/0.5 ml 2022-23 (Fluzone) IM ONE (06:45)
[2022-11-06 07:26] LABS: BASOPHILS % (AUTO) 0 % (0-10); EOSINOPHILS % (AUTO) 0 % (0-10); HEMATOCRIT 38 % (35-52); LYMPHOCYTES # (AUTO) 0.4 10^3/uL (1.0-4.0); LYMPHOCYTES % (AUTO) 15 % (12-44); MEAN CORPUSCULAR HEMOGLOBIN 32 pg (25-34); MEAN CORPUSCULAR HGB CONC 34 g/dL (32-36); MEAN CORPUSCULAR VOLUME 94 fL (80-99); MONOCYTES # (AUTO) 0.2 10^3/uL (0.0-1.0); MONOCYTES % (AUTO) 6 % (0-12); NEUTROPHILS # (AUTO) 2.2 10^3/uL (1.8-7.8); NEUTROPHILS % (AUTO) 79 % (42-75); PLATELET COUNT 153 10^3/uL (130-400); WHITE BLOOD COUNT 2.8 10^3/uL (4.3-11.0)
[2022-11-06 07:33] LABS: POTASSIUM 3.9 MMOL/L (3.6-5.0)
[2022-11-06 07:34] LABS: CALCIUM 8.5 MG/DL (8.5-10.1)
[2022-11-06 07:38] LABS: CREATININE SERUM 0.59 MG/DL (0.60-1.30)
[2022-11-06 08:12] VITALS: BP 132/75
[2022-11-06] MEDS ORDERED: VITAMIN D3 125 MCG (5,000 UNITS) CAPSULE PO SCH (09:30)
[2022-11-06] MEDS ORDERED: CALC GLUC 1 GM/100 ML IVPB 100 ML IV NR (10:00)
--- NOTE | 2022-11-06 10:30 | History & Physical-Hospitalist ---
History of Present Illness HPI/Chief Complaint Patient is a 46-year-old female past medical history of intellectual disability, seizure disorder, CVA with right-sided residual deficits who presented to the emergency department hypoxia. She has been having a cough and fever this week and was seen by Dr. Cheung. She had a chest x-ray and labs done as an outpatient. She was started on antibiotics and Lasix. They did test her for COVID and the flu and those were reportedly negative but repeat testing here showed that she was positive for COVID. Niyah is unable to provide me any of this history and mostly just answers questions with one-word responses. Most of the history is obtained from the records. She was quite ill-appearing the emergency room and elected to admit given her high risk for decompensation. This morning she states yes when asked if she is feeling better. She did not answer when asked if she needed anything. Source: patient Date Seen 11/06/22 Time Seen by a Provider: 10:30 Attending Physician Diana Cheung DO PCP Admitting Physician: Marina Santana MD Attending Physician: Marina Santana MD Referring Physician Date of Admission Nov 05, 2022 at 17:52 Home Medications & Allergies Home Medications Reviewed patient Home Medication Reconciliation performed by pharmacy medication reconciliations garage door technician and/or nursing. Patients Allergies have been reviewed. Allergies Allergies Coded Allergies No Known Drug Allergies (Cmtwnszlvc97/8/21) Past Xqeelwz-Jihaqn-Hgofob Hx Patient Social History Employed/Student: unemployed Tobacco Use?: No Smoking Status: Never a Smoker Smokeless Tobacco Frequency: Never a User Use of E-Cig and/or Vaping [place]: Never a User Substance use?: No Alcohol Use?: No Pt feels they are or have been: No Immunizations Up To Date First/Initial COVID19 Vaccinat: DECEMBER 13, 2020 Second COVID19 Vaccination [place]: JANUARY 10, 2021 Tetanus Booster (TDap): Unknown Hepatitis A: No Hepatitis B: No PED Vaccines UTD: No Seasonal Allergies Seasonal Allergies: No Current Status status: No status: No Advance Directives: No Communicates: Verbally Primary Language: Finnish Preferred Spoken Language: Finnish Is interpretation needed?: No Implanted or Applied Medical D: None Past Medical History Seizure Disorder, Stroke Bladder Infection Diverticulosis Fractures Tonsilitis Anxiety Recent Skin Changes Blood Disorders: No Adverse Reaction/Blood Tranf: No Family Medical History Reviewed Nursing Family Hx Alcoholism 19 MOTHER (mother , addicted to illegal drugs) No Pertinent Family Hx Review of Systems Constitutional: see HPI Physical Exam Physical Exam Vital Signs Vital Signs - First Documented 11/05/22 11/05/22 11/05/22 15:29 17:48 22:07 Temp 36.7 Pulse 78 Resp 16 B/P (MAP) 124/71 Pulse Ox 94 O2 Delivery Room Air O2 Flow Rate 0.00 FiO2 21 Capillary Refill : Less Than 3 Seconds Height, Weight, BMI Height: 4'8.00" Weight: 200lbs. 0.0oz. 90.239277pr; 38.31 BMI Method:Estimated General Appearance: Chronically ill, Obese HEENT: PERRL/EOMI, Moist Mucous Membranes; No Scleral Icterus (L), No Scleral Icterus (R) Neck: Normal Inspection, Supple Respiratory: No Accessory Muscle Use, No Respiratory Distress; No Crackles; Decreased Breath Sounds Cardiovascular: Regular Rate, Rhythm, No JVD, No Murmur Gastrointestinal: Normal Bowel Sounds, Non Tender, Soft, Other (PEG tube) Extremity: Other (shortened limbs, appears to have quadriplegia) Neurologic/Psychiatric: Alert, Other (oriented to person and place) Results Results/Procedures Labs Laboratory Tests 11/05/22 16:20 11/06/22 06:50 11/07/22 07:10 Patient resulted labs reviewed. Imaging: Reviewed Imaging Report Imaging [facility], [place] NAME: NIYAH DIAZ [facility] REC#: [id number] PT STATUS: ADM IN : 1975 PHYSICIAN: NAYANA FAULKNER MD ADMIT DATE: 11/05/22 Signed Date of Exam:11/05/22 CHEST 1 VIEW, AP/PA ONLY CLINICAL INDICATION: Patient with complaints of low oxygen saturations and respiratory issues x1 week. EXAM: Chest x-ray PA and lateral views. COMPARISON: None. FINDINGS: Lungs/pleura: There are mild patchy airspace opacities involving the left midlung field and left lung base. There is minimal right lung base atelectasis versus infiltrates. There is no pneumothorax. There is no pleural effusion. Mediastinum: Unremarkable. Pulmonary vasculature: Pulmonary vasculature is mildly congested. Heart: There is cardiomegaly. Bones/extrathoracic soft tissue: There are degenerative spurs involving the spine. There is left curvature of the lumbar spine. IMPRESSION: 1: There is cardiomegaly with mild pulmonary vascular congestion which could be seen with congestive heart failure. 2: There are mild patchy airspace opacities involving the left midlung field and left lung base which may be related to lung infiltrates or pulmonary congestion. There is minimal right lung base atelectasis or infiltrate as well. Dictated by: Dictated on workstation # [id number] Dict: 11/05/22 170 Trans: 11/05/222301 AS6 [id number] Interpreted by: VERA ALMODOVAR MD Electronically signed by: VERA ALMODOVAR MD 11/05/222301 Assessment/Plan Admission Diagnosis COVID Admission Status: Inpatient Order (span 2 midnights) Reason for Inpatient Admission: see below Assessment and Plan COVID COPD Currently on room air but high risk for decompensation Continue steroids Outside of window for Paxlovid Monitor closely for progression Intellectual disability Seizure disorder Continue home meds as appropriate one med rec done PEG dependence resume home feeds when instructions sent CLD Diagnosis/Problems Diagnosis/Problems (1) Intellectual disability (2) Pneumonia due to COVID-19 virus (3) Generalized weakness Status: Acute (4) Seizure disorder Copy Copies To 1: DIANA CHEUNG KATELYN M MD Nov 06, 2022 10:30
[2022-11-06] MEDS: NS IV 1000 ML 1,000 ML IV SCH ×2 (10:38→18:03)
[2022-11-06 12:42] VITALS: BP 111/63
[2022-11-06 15:38] VITALS: BP 106/57
[2022-11-06] MEDS ORDERED: FURO40TA4 PO (16:02)
[2022-11-06] MEDS ORDERED: FAMO20TA5 PO (16:02)
[2022-11-06] MEDS ORDERED: ALB0.5V INH (16:02)
[2022-11-06 19:32] VITALS: BP 109/64
[2022-11-07 00:20] VITALS: BP 123/62
[2022-11-07] MEDS: ENOXAPARIN 40 MG/0.4 ML (LOVENOX) SYR SC SCH ×2 (00:23→20:17)
[2022-11-07] MEDS: LACOSAMIDE 100 MG PO SCH ×3 (00:23→20:17)
[2022-11-07] MEDS: clonazePAM 1 MG (KlonoPIN) TAB PO SCH ×2 (00:24→20:17)
[2022-11-07 04:00] VITALS: BP 116/62
[2022-11-07 07:18] LABS: HEMOGLOBIN 13.4 g/dL (11.5-16.0); MEAN PLATELET VOLUME 9.6 fL (9.0-12.2); WHITE BLOOD COUNT 3.9 10^3/uL (4.3-11.0)
[2022-11-07] MEDS: RT-ALBUTEROL HFA 8.5 GM INHALER IH SCH ×5 (07:21→21:30)
[2022-11-07 07:35] LABS: POTASSIUM 4.8 MMOL/L (3.6-5.0)
[2022-11-07 07:37] LABS: CALCIUM 8.2 MG/DL (8.5-10.1)
[2022-11-07 07:41] LABS: CREATININE SERUM 0.57 MG/DL (0.60-1.30)
[2022-11-07 07:42] VITALS: BP 115/71
[2022-11-07] MEDS: clonazePAM 0.5 MG (KlonoPIN) TAB PO SCH ×2 (09:45→13:39)
[2022-11-07 11:36] VITALS: BP 108/62
--- NOTE | 2022-11-07 13:17 | Progress Note - Hospitalist ---
Subjective HPI/CC On Admission Date Seen by Provider: Nov 07, 2022 Patient is a 46-year-old female past medical history of intellectual disability, seizure disorder, CVA with right-sided residual deficits who presented to the emergency department hypoxia. She has been having a cough and fever this week and was seen by Dr. Santos. She had a chest x-ray and labs done as an outpatient. She was started on antibiotics and Lasix. They did test her for COVID and the flu and those were reportedly negative but repeat testing here showed that she was positive for COVID. Niyah is unable to provide me any of this history and mostly just answers questions with one-word responses. Most of the history is obtained from the records. She was quite ill-appearing the emergency room and elected to admit given her high risk for decompensation. Th is morning she states yes when asked if she is feeling better. She did not answer when asked if she needed anything. Subjective/Events-last exam Pt report feeling ok. 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 She was sleeping when I entered the room but woke up easily. When I informed her I was hopeful for DC tomorrow she squealed "we happy" and hugged me. Focused Exam Lactate Level 11/05/22 16:20: Lactic Acid Level 1.21 Objective Exam Vital Signs Vital Signs Date Time Temp Pulse Resp B/P (MAP) Pulse Ox O2 Delivery O2 Flow Rate FiO2 11/07/22 11:36 37.3 91 18 108/62 (77) 96 Room Air 11/07/22 11:02 0.00 11/06/22 02:40 21 Capillary Refill : Less Than 3 Seconds General Appearance: No Apparent Distress, Chronically ill Respiratory: Lungs Clear, No Respiratory Distress Cardiovascular: Regular Rate, Rhythm, No Murmur Neurologic/Psychiatric: Alert, Other (oriented to person and place) Results/Procedures Lab Laboratory Tests 11/07/22 07:10 Patient resulted labs reviewed. Imaging: Reviewed Imaging Report Assessment/Plan Assessment and Plan Assess & Plan/Chief Complaint COVID COPD Currently on room air but high risk for decompensation Continue steroids Outside of window for Paxlovid Doing well, hopeful to DC home tomorrow if continues to do well Intellectual disability Seizure disorder Continue home meds as appropriate one med rec done- RN working on it now PEG dependence resume home feeds when instructions sent CLD Diagnosis/Problems Diagnosis/Problems (1) Intellectual disability (2) Pneumonia due to COVID-19 virus (3) Generalized weakness Status: Acute (4) Seizure disorder MJ LEWIS MD Nov 07, 2022 13:17
[2022-11-07] MEDS: NS IV 1000 ML 1,000 ML IV SCH ×2 (13:43→20:21)
--- NOTE | 2022-11-07 13:44 | Discharge Inst-Simple/Standard ---
Discharge Inst-Standard Discharge Medications New, Converted or Re-Newed RX: Transmitted to Pharmacy Patient Instructions/Follow Up Plan of Care/Instructions/FU: Please continue to take your medications as written. Please follow up with your primary care doctor to follow up this hospital stay. Activity as Tolerated: Yes Discharge Diet: Liquid Diet Return to The Hospital For: Chest pain, shortness of breath, fever, weakness, if you feel you are getting worse. MJ LEWIS MD Nov 07, 2022 1:44 pm
[2022-11-07 15:34] VITALS: BP 100/56
[2022-11-07 19:28] VITALS: BP 110/72
[2022-11-08 00:13] VITALS: BP 118/78
[2022-11-08] MEDS: RT-ALBUTEROL HFA 8.5 GM INHALER IH SCH (02:55)
[2022-11-08 03:17] VITALS: BP 118/78
[2022-11-08 04:34] VITALS: BP 110/67
[2022-11-08 07:43] VITALS: BP_SYST 113; BP_SYST 141; BP_DIAS 61; BP_DIAS 87
[2022-11-08] MEDS ORDERED: RT-ALBUTEROL HFA 8.5 GM INHALER IH SCH (08:00)
[2022-11-08] MEDS: LACOSAMIDE 100 MG PO SCH (09:22)
[2022-11-08] MEDS: clonazePAM 0.5 MG (KlonoPIN) TAB PO SCH ×2 (09:26→12:40)
[2022-11-08] MEDS: NS IV 1000 ML 1,000 ML IV SCH (09:36)
--- NOTE | 2022-11-08 09:53 | Discharge Summary ---
Diagnosis/Chief Complaint Date of Admission Nov 05, 2022 at 17:52 Date of Discharge Discharge Date: Nov 08, 2022 Admission Diagnosis COVID Primary Care LeighcurlyRickie DO Discharge Diagnosis (1) Intellectual disability (2) Pneumonia due to COVID-19 virus (3) Generalized weakness Status: Acute (4) Seizure disorder Discharge Summary Discharge Physical Exam Allergies: Coded Allergies: No Known Drug Allergies (Unverified , 08/15/21) Vitals & I&Os Vital Signs Date Time Temp Pulse Resp B/P (MAP) Pulse Ox O2 Delivery O2 Flow Rate FiO2 11/08/22 07:43 37.2 79 20 113/61 (78) 96 Room Air 11/08/22 06:51 0.00 11/06/22 02:40 21 General Appearance: No Apparent Distress, Chronically ill Respiratory: Lungs Clear, No Respiratory Distress Cardiovascular: Regular Rate, Rhythm, No Murmur Gastrointestinal: Normal Bowel Sounds, Soft Neurologic/Psychiatric: Alert, Other (oriented to person and place) Hospital Course Patient was admitted to the hospital secondary to COVID-19. She was roughly a week into her symptoms upon arrival to the ER and so was observed for a couple more days to ensure that she did not have any worsening. She remained quite stable throughout this admission was on room air. Unfortunately she was outside of the timeframe for Paxlovid. She was treated with Decadron though. She did well and was able to be discharged back to [place] with outpatient follow-up with Dr. Santos. Labs (last 24 hrs) Microbiology 11/05/22 Blood Culture - Preliminary, Resulted No growth 11/05/22 Urine Culture - Final, Complete NO GROWTH Patient resulted labs reviewed. Imaging: Reviewed Imaging Report Discussion & Recommendations Discharge Planning: >30 minutes discharge planning Discharge Home Medications: Active Scripts Active Albuterol Sulfate 2.5 Mg/0.5 Ml Vial.neb 2.5 Mg INH Q6H 15 Days Furosemide 40 Mg Tablet 40 Mg PO DAILY 30 Days Famotidine 20 Mg Tablet 20 Mg PO BID 30 Days Reported Omeprazole 20 Mg Tablet.dr 20 Mg PO DAILY Clonazepam 0.5 Mg Tablet 0.5 Mg PO 0800,1200 Tetrahydrozoline HCl 15 Ml Drops 2 Drops OU Q6H PRN Vimpat (Lacosamide) 200 Mg Tablet 200 Mg PO BID Calcium (Calcium Carbonate) 500 Mg Tab.chew 1,000 Mg PO Q4H PRN Thera-Tabs (Multivitamins,Therapeutic) 1 Each Tablet 1 Each PO DAILY Guaifenesin-Dm 100-10 mg/5 ml (Guaifenesin/Dextromethorphan) 5 Ml Liquid 10 Ml PO Q6H PRN Nystatin 1 Each Powder.ea. 1 Each TOP BID APPLY TO BUTTOCKS Neosporin Ointment (Neomycin Chapman/Bacitrac Zn/Poly) 28.3 Gm Oint...g. 1 Applic TP Q12H PRN Milk of Magnesia (Magnesium Hydroxide) 400 Mg/5 Ml Oral.susp 30 Ml PO Q12H PRN Clotrimazole-Betamethasone Crm (Clotrimazole/Betamethasone Dip) 15 Gm Cream..g. 1 Applic TP Q8H PRN APPLY TO ABDOMINAL FOLD AND UNDER BREASTS Lamotrigine 200 Mg Tablet 200 Mg PO QID Imodium A-D (Loperamide HCl) 2 Mg Capsule 2-4 Mg PO UD PRN MDD 4 TABS Hydrocortisone (Hydrocortisone Acetate) 28 Gm Oint...g. 1 Applic TP Q8H PRN Cough Drops (Menthol) 5.4 Mg Lozenge 5.4 Mg MM Q1H PRN MDD 8 LOZENGES Clonazepam 1 Mg Tablet 1 Mg PO HS Calmoseptine Ointment (Menthol/Lanolin/Calamine/Znox) 71 Gm Oint 1 Applic TP BID Benadryl Allergy (Diphenhydramine HCl) 25 Mg Tablet 25-50 Mg PO Q6H PRN Tylenol (Acetaminophen) 325 Mg Capsule 650 Mg PO Q6H PRN Instructions to patient/family Please see electronic discharge instructions given to patient. JM LEWIS MD Nov 08, 2022 09:53
[2022-11-08] MEDS ORDERED: PRD20T PO (10:02)
[2022-11-08 11:33] VITALS: BP 108/62
[2022-11-08 14:30] VITALS: BP 108/62
== END 2022-11-08 14:30 | disposition home or self-care (01) | DRG 177 ==
LOC: EDUNIT# 15:10 → ER 15:13 → 4TH 17:52
PROVIDERS: ADMIT Family Medicine; ATTEND Family Medicine
PROC: 8E0ZXY6 Isolation (ICD-10-PCS; principal; 2022-11-05)
DX: U07.1 COVID-19 (principal); G82.50 Quadriplegia, unspecified; J12.82 Pneumonia due to coronavirus disease 2019; G40.909 Epilepsy, unspecified, not intractable, without status epilepticus; F79 Unspecified intellectual disabilities; J44.9 Chronic obstructive pulmonary disease, unspecified; I69.361 Other paralytic syndrome following cerebral infarction affecting right dominant side; I69.398 Other sequelae of cerebral infarction; F41.9 Anxiety disorder, unspecified; Z87.19 Personal history of other diseases of the digestive system; M24.575 Contracture, left foot; M24.574 Contracture, right foot; Z93.1 Gastrostomy status; Z79.899 Other long term (current) drug therapy
CPT/HCPCS: 36415; 51702; 71045; 80048; 80053; 81000; 82306; 83605; 83880; 84145; 85025; 85027; 85610; 85730; 87040; 87088; 87636; 94640; 96361; 96374

== ENCOUNTER 2023-05-11 09:14 | Emergency (ER) | payer MEDICAID ==
[~2023-05-11] VITALS: Ht 142 cm; Wt 83.0 kg
[~2023-05-11 09:14] MED LIST changes: +ALB0.5V INH; +PRD20T PO
--- NOTE | 2023-05-11 09:19 | ED General ---
General Chief Complaint: Catheter/Drain/Tube Problems Stated Complaint: PULLED OUT FEEDING TUBE Source of Information: Other (caregiver) Exam Limitations: No Limitations History of Present Illness Date Seen by Provider: May 11, 2023 Time Seen by Provider: 09:19 Initial Comments Patient is a 47-year-old female from "[place]" who woke up this morning with her G-tube in the bed beside her. Unknown what time it came out. Presents for replacement of G-tube. No other medical complaints per caregiver at the bedside. Timing/Duration: Other (unknown) Allergies and Home Medications Allergies Coded Allergies: No Known Drug Allergies (Unverified , 08/15/21) Patient Home Medication List Home Medication List Reviewed: Yes Acetaminophen (Tylenol) 325 Mg Capsule, 650 MG PO Q6H PRN for PAIN-MILD (1-4), (Reported) Entered as Reported by: CARMEN CARSON on 06/17/211626 Albuterol Sulfate (Albuterol Sulfate) 2.5 Mg/0.5 Ml Vial.neb, 2.5 MG INH Q6H Prescribed by: GEO RASMUSSEN on 11/06/22 160 Clonazepam (Clonazepam) 1 Mg Tablet, 1 MG PO HS, (Reported) Entered as Reported by: CARMEN CARSON on 06/17/21 162 Clonazepam (Clonazepam) 0.5 Mg Tablet, 0.5 MG PO 0800,1200, (Reported) Entered as Reported by: CARMEN CARSON on 08/15/21 1417 Clotrimazole/Betamethasone Dip (Clotrimazole-Betamethasone Crm) 15 Gm Cream..g., 1 APPLIC TP Q8H PRN for RASH, (Reported) Entered as Reported by: CARMEN CARSON on 06/17/21 162 Diphenhydramine HCl (Benadryl Allergy) 25 Mg Tablet, 25-50 MG PO Q6H PRN for ALLERGIC REACTIONS, (Reported) Entered as Reported by: CARMEN CARSON on 06/17/21 162 Famotidine (Famotidine) 20 Mg Tablet, 20 MG PO BID Prescribed by: GEO RASMUSSEN on 11/06/22 160 Furosemide (Furosemide) 40 Mg Tablet, 40 MG PO DAILY Prescribed by: GEO RASMUSSEN on 11/06/22 160 Guaifenesin/Dextromethorphan (Guaifenesin-Dm 100-10 mg/5 ml) 5 Ml Liquid, 10 ML PO Q6H PRN for COUGH, (Reported) Entered as Reported by: CARMEN CARSON on 06/17/211626 Hydrocortisone Acetate (Hydrocortisone) 28 Gm Oint...g., 1 APPLIC TP Q8H PRN for RASH, (Reported) Entered as Reported by: CARMEN CARSON on 06/17/211626 Lacosamide (Vimpat) 200 Mg Tablet, 200 MG PO BID, (Reported) Entered as Reported by: CARMEN CARSON on 06/17/211626 Lamotrigine (Lamotrigine) 200 Mg Tablet, 200 MG PO QID, (Reported) Entered as Reported by: CARMEN CARSON on 06/17/211626 Loperamide HCl (Imodium A-D) 2 Mg Capsule, 2-4 MG PO UD PRN for DIARRHEA, (Reported) Entered as Reported by: CARMEN CARSON 06/17/211626 Magnesium Hydroxide (Milk of Magnesia) 400 Mg/5 Ml Oral.susp, 30 ML PO Q12H PRN for CONSTIPATION-7TH LINE, (Reported) Entered as Reported by: CARMEN CARSON on 06/17/211626 Menthol (Cough Drops) 5.4 Mg Lozenge, 5.4 MG MM Q1H PRN for COUGH, (Reported) Entered as Reported by: CARMEN CARSON on 06/17/211626 Menthol/Lanolin/Calamine/Znox (Calmoseptine Ointment) 71 Gm Oint, 1 APPLIC TP BID, (Reported) Entered as Reported by: CARMEN CARSON on 06/17/211626 Multivitamins,Therapeutic (Thera-Tabs) 1 Each Tablet, 1 EACH PO DAILY, (Reported) Entered as Reported by: CARMEN CARSON 06/17/211626 Neomycin Chapman/Bacitrac Zn/Poly (Neosporin Ointment) 28.3 Gm Oint...g., 1 APPLIC TP Q12H PRN for MINOR CUTS AND ABRASIONS, (Reported) Entered as Reported by: CARMEN CARSON 06/17/211626 Nystatin (Nystatin) 1 Each Powder.ea., 1 EACH TOP BID, (Reported) Entered as Reported by: CARMEN CARSON on 06/17/21 1627 Omeprazole (Omeprazole) 20 Mg Tablet.dr, 20 MG PO DAILY, (Reported) Entered as Reported by: FLORECITA YU on 07/30/22 1028 Prednisone (Prednisone) 20 Mg Tab, 40 MG PO DAILY Prescribed by: MJ LEWIS on 11/08/22 1002 Tetrahydrozoline HCl (Tetrahydrozoline HCl) 15 Ml Drops, 2 DROPS OU Q6H PRN for REDNESS/IRRITATION, (Reported) Entered as Reported by: CARMEN CARSON on 08/15/21 1417 Review of Systems Review of Systems Constitutional: see HPI Gastrointestinal: other (dislodged g tube) intellectual disability - history provided by childcare center director Past Phcbbaa-Tbrxqr-Vgxofa Hx Immunizations Up To Date Tetanus Booster (TDap): More than 5yrs PED Vaccines UTD: No First/Initial COVID19 Vaccinat: DECEMBER 13, 2020 Second COVID19 Vaccination [place]: JANUARY 10, 2021 Third COVID19 Vaccination Date: DECEMBER 13, 2020 Seasonal Allergies Seasonal Allergies: No Past Medical History Surgeries: Yes Respiratory: No Cardiac: No Neurological: Yes (Chronic neurologic deficits with right-sided paralysis.) Seizure Disorder, Stroke Reproductive Disorders: No Genitourinary: Yes Bladder Infection Gastrointestinal: Yes Diverticulosis Musculoskeletal: Yes Fractures Endocrine: No HEENT: Yes Tonsilitis Cancer: No Psychosocial: Yes Anxiety Integumentary: No (ULCER BEHIND R LEG) Recent Skin Changes Blood Disorders: No Adverse Reaction/Blood Tranf: No Family Medical History Alcoholism 19 MOTHER (mother , addicted to illegal drugs) No Pertinent Family Hx Physical Exam Vital Signs Vital Signs - First Documented 05/11/23 09:18 Temp 36.8 Pulse 77 Resp 18 Pulse Ox 97 Capillary Refill : Height, Weight, BMI Height: 4'8.00" Weight: 200lbs. 0.0oz. 90.307283gg; 38.31 BMI Method:Estimated General Appearance: No Apparent Distress, WD/WN, Obese Respiratory: No Accessory Muscle Use, No Respiratory Distress Gastrointestinal: Other (stoma LUQ clean and dry; no erythema) Neurologic/Psychiatric: Alert Skin: Normal Color, Warm/Dry Progress/Results/Core Measures Suspected Sepsis SIRS Temperature: Pulse: Respiratory Rate: Blood Pressure / Mean: Results/Orders Vital Signs/I&O 05/11/23 09:18 Temp 36.8 Pulse 77 Resp 18 B/P (MAP) Pulse Ox 97 Capillary Refill : Progress Note : Time: 09:50 Progress Note Patient placed in the bed and a smaller sized NGT used to cannulate the stoma - then a replacement 18fr g tube was replaced in the stoma, with return of apparent gastric contents. Balloon inflated 10ml - secure. Departure Impression Primary Impression: Dislodged gastrostomy tube Disposition: HOME, SELF-CARE Condition: Stable Departure-Patient Inst. Decision time for Depature: 09:51 Referrals: DIANA CHEUNG DO (PCP/Family) Primary Care Physician Add. Discharge Instructions: Return to the Emergency Department for any new, concerning or emergent complaints. Copy Copies To 1: DIANA CHEUNG KATHRYN M MD May 11, 2023 09:19
[2023-05-11 09:55] VITALS: BP 126/68
== END 2023-05-11 09:55 | disposition home or self-care (01) ==
LOC: EDUNIT# 09:14 → ER 09:16
DX: K94.23 Gastrostomy malfunction (principal); E66.9 Obesity, unspecified; Z68.38 Body mass index [BMI] 38.0-38.9, adult
CPT/HCPCS: 43762